=== PATIENT | female | born 1970 | race Caucasian/White ===

== ENCOUNTER → 2019-08-03 08:34 | Outpatient (BNVA) | payer MEDICAID, SELFPAY | PROVIDERS: Family Provider Nurse Practitioner Family; PCP Family Medicine; Visit Provider Counselor Mental Health | DX: F33.1 Major depressive disorder, recurrent, moderate (principal); G47.00 Insomnia, unspecified | CPT/HCPCS: 90834 ==

== ENCOUNTER → 2019-08-15 10:41 | Outpatient (BNVA) | payer MEDICAID, SELFPAY | PROVIDERS: Family Provider Nurse Practitioner Family; PCP Family Medicine; Visit Provider Counselor Mental Health | DX: F33.1 Major depressive disorder, recurrent, moderate (principal); G47.00 Insomnia, unspecified | CPT/HCPCS: 90834 ==

== ENCOUNTER → 2019-08-27 13:31 | Outpatient (BNVA) | payer MEDICAID, SELFPAY | PROVIDERS: Family Provider Nurse Practitioner Family; PCP Family Medicine; Visit Provider Nurse Practitioner Psychiatric/Mental Health | DX: F33.2 Major depressive disorder, recurrent severe without psychotic features (principal); F41.1 Generalized anxiety disorder; F60.9 Personality disorder, unspecified | CPT/HCPCS: 99214 ==

== ENCOUNTER → 2019-08-31 08:36 | Outpatient (BNVA) | payer MEDICAID, SELFPAY | PROVIDERS: Family Provider Nurse Practitioner Family; PCP Family Medicine; Visit Provider Counselor Mental Health | DX: F33.1 Major depressive disorder, recurrent, moderate (principal); G47.00 Insomnia, unspecified | CPT/HCPCS: 90832 ==

== ENCOUNTER → 2019-09-10 16:13 | Outpatient (BNVA) | payer MEDICAID, SELFPAY | PROVIDERS: Family Provider Nurse Practitioner Family; PCP Family Medicine; Visit Provider Nurse Practitioner Family | DX: E66.9 Obesity, unspecified (principal); R53.83 Other fatigue; Z79.899 Other long term (current) drug therapy; E78.2 Mixed hyperlipidemia; E55.9 Vitamin D deficiency, unspecified | CPT/HCPCS: 80053; 80061; 81001; 82306; 83036; 84443; 85025 ==

== ENCOUNTER 2020-01-09 07:50 | Day surgery (SDC) | payer MEDICAID, SELFPAY ==
[2020-01-07 13:45] VITALS: BMI 34.9
[2020-01-09 07:59] VITALS: BP 112/75; PULSE 69; RESP 18; TEMP 36.1; O2SAT 98
[2020-01-09] MEDS: sodium chloride 0.9% 1,000 ML 30 ML IV (08:12)
--- NOTE | 2020-01-09 08:18 | P.ANESASSM_ITS ---
Pre-Anesthetic Assessment Pre-Anesthetic Assessment: Height/Weight: Height 1.65 m Weight 95.254 kg Temp Pulse Resp BP Pulse Ox 97 F L 69 18 112/75 98 01/09/20 07:59 01/09/20 07:59 01/09/20 07:59 01/09/20 07:59 01/09/20 07:59 Preop Diagnosis: Screening colonoscopy Proposed Procedure: Operation Date: 01/09/20 09:00 Proposed Procedures p Colonoscopy 88942 Z12.11(Not Applicable) - James Becker MD Last intake: Intake Last Liquid Date 01/08/20 Last Liquid Time 23:00 Last Solid Date 01/06/20 Last Solid Time 23:59 Social: Social History: Tobacco (quit) and No alcohol Exam: Pre-Anes Outpt Exam: alert, oriented x 3, clear to auscultation bilaterally and regular rate & rhythm Airway: Submandibular: WNL Cervical ROM: WNL Dentition: Full ( edentureless) History/ROS: No significant history except as noted Pulmonary: Pulmonary: None reported CV/HEM: CV/HEM: None reported : : None reported Hepatic: Hepatic: None reported GI: GI: None reported Metabolic: Metabolic: Morbid obesity Musc/skel: Musc/skel: Lower Back Pain Neuropsych: Neuropsych: Anxiety and Depression Anesthetic Plan: ASA status: 3 Anesthesia: Anesthesia Evaluation and MAC Risk of > 500 ml blood loss (7ml/kg in children): No Meds/Allergies Current Medications: Current Medications Generic Name Dose Route Start Last Admin Trade Name Freq PRN Reason Stop Dose Admin Sodium Chloride 1,000 mls @ 30 ml s/hr 01/09/20 08:00 01/09/20 08:12 Sodium Chloride 0.9% IV 30 mls/hr .Q24H DAQUAN Administration PFSH Anesthesia PFSH: Medical History Brain aneurysm Depression Insomnia, persistent Intervertebral disc disorders with radiculopathy, lumbosacral region Obesity Surgical History H/O: hysterectomy History of colonoscopy History of esophagogastroduodenoscopy (EGD) S/P appendectomy S/P cataract surgery S/P craniotomy S/P D&C (status post dilation and curettage) S/P tonsillectomy and adenoidectomy Family History Mother Bleeding disorder Anesthesia complication Other CAD (coronary artery disease) Cancer Diabetes Hyperlipidemia Hypertension Stroke Suicide Social History Smoking and tobacco status: former smoker Alcohol intake: never Data Anesthesia Cardiac Studies: No Data to Display
--- NOTE | 2020-01-09 09:19 | W.PM.OPSUD ---
Surgery/Procedure H&P Update DATE OF PROCEDURE: January 09, 2020 DATE H&P PERFORMED: 12/20/19 H&P UPDATE INFORMATION: I have reviewed H&P completed within last 30 days, I have examined patient prior to procedure and No changes to prior documentation PREOP DIAGNOSIS: Screening colonoscopy PRIMARY INDICATION FOR PROCEDURE: The same PLANNED PROCEDURE: Operation Date: 01/09/20 09:00 Proposed Procedures p Colonoscopy 59531 Z12.11(Not Applicable) - James eBcker MD
[2020-01-09 09:34] VITALS: BP 104/66; PULSE 69; RESP 16; TEMP 36.8; O2SAT 98
[2020-01-09 09:45] VITALS: BP 103/70; PULSE 70; RESP 18; O2SAT 97
== END 2020-01-09 09:55 | disposition home or self-care (01) ==
PROVIDERS: Internal Medicine; PCP Family Medicine; Visit Provider Surgery
PROC: 0DJD8ZZ Inspection of Lower Intestinal Tract, Via Natural or Artificial Opening Endoscopic (ICD-10-PCS; CPT 45330; principal; 2020-01-09 09:00)
DX: Z12.11 Encounter for screening for malignant neoplasm of colon (principal); Z53.8 Procedure and treatment not carried out for other reasons; Z87.891 Personal history of nicotine dependence; E66.01 Morbid (severe) obesity due to excess calories; Z68.34 Body mass index [BMI] 34.0-34.9, adult; E66.9 Obesity, unspecified; Z82.49 Family history of ischemic heart disease and other diseases of the circulatory system; Z83.3 Family history of diabetes mellitus; Z82.3 Family history of stroke
CPT/HCPCS: 12345; 45330; J7030

== ENCOUNTER → 2020-01-11 10:56 | Outpatient (BNVA) | payer MEDICAID, SELFPAY | PROVIDERS: PCP Family Medicine; Visit Provider Family Medicine | DX: E78.5 Hyperlipidemia, unspecified (principal) | CPT/HCPCS: 80053; 80061 ==

== ENCOUNTER 2020-01-26 16:56 | Emergency (ER) | payer MEDICAID, SELFPAY ==
[2020-01-26 17:00] VITALS: BMI 32.5
[2020-01-26 17:03] VITALS: BP 121/85; PULSE 91; RESP 18; TEMP 36.7; O2SAT 96
--- NOTE | 2020-01-26 17:27 | ED_ITS ---
HPI - Nausea/Vomiting/Diarrhea General: Chief complaint: Nausea/Vomiting/Diarrhea Stated complaint: VOMITING Time Seen by Provider: 01/26/20 17:27 Source: patient Mode of arrival: ambulatory Limitations: no limitations History of Present Illness: HPI Narrative: 49-year-old female comes in today for complaints of nausea and vomiting with emesis 3 times today. Patient started yesterday she was doing well today she woke up feeling kind bad with a headache. Patient then started having episodes of nausea and vomiting. Patient denies any fever or other symptoms. Patient does have a history of migraine headaches. Patient appears well. Patient appears in mild pain. Associated nausea: Yes Associated symtoms: Reports headache(s) and nausea Review of Systems General: Reports: 10 or more systems reviewed and unremarkable except in HPI and below GI: Reports: nausea and vomiting Neuro: Reports: headache(s) PFSH ED PFSH: Medical History (Updated 01/26/20 @ 18:38 by DIXIE Rodriguez) Brain aneurysm Depression Insomnia, persistent Intervertebral disc disorders with radiculopathy, lumbosacral region Obesity Surgical History H/O: hysterectomy History of colonoscopy History of esophagogastroduodenoscopy (EGD) S/P appendectomy S/P cataract surgery S/P craniotomy S/P D&C (status post dilation and curettage) S/P tonsillectomy and adenoidectomy Family History Mother Bleeding disorder Anesthesia complication Other CAD (coronary artery disease) Cancer Diabetes Hyperlipidemia Hypertension Stroke Suicide Social History Smoking and tobacco status: former smoker Alcohol intake: never Physical Exam Const: COMMON NORMALS: no acute distress and patient oriented x3 GENERAL APPEARANCE: cooperative HENMT: COMMON NORMALS: normocephalic and Normal external nose present HEAD & SCALP: normal to inspection and normocephalic NOSE: Normal external nose present THROAT: posterior oropharynx normal Eye: GENERAL EYE: appearance normal, both eyes and all related structures Neck/C-Spine: COMMON NORMALS: full ROM Lymph: LYMPHATIC: no lymphadenopathy noted Chest: COMMONS NORMALS: normal inspection of the chest Resp: COMMON NORMALS: normal respiratory effort EFFORT & INSPECTION: Yes able to speak in complete sentences Cardio: COMMON NORMALS: regular rate and regular rhythm RATE: regular rate RHYTHM: regular rhythm GI: COMMON NORMALS: Soft to palpation and non-tender PALPATION: Yes Soft to palpation : COMMON NORMALS: Yes no CVA tenderness BLADDER/KIDNEY EXAM: Yes no CVA tenderness Back/Pelvis: COMMON NORMALS: no CVA tenderness and thoracic and lumbar spine normal to inspection Extremity: COMMON NORMALS: normal to inspection Neuro: COMMON NORMALS: patient oriented x3 and moves all extremities Psych: COMMON NORMALS: mental status grossly normal and cooperative Skin: COMMON NORMALS: no rashes or lesions noted GENERAL SKIN EXAM: no rashes or lesions noted Course Vital Signs: Vital signs: Vital Signs Temperature 98.0 F 01/26/20 17:03 Pulse Rate 91 01/26/20 17:03 Respiratory Rate 18 01/26/20 17:03 Blood Pressure 121/85 01/26/20 17:03 Pulse Oximetry 96 01/26/20 17:03 MDM - Nausea/Vomiting/Diarrhea MDM Narrative: Medical decision making narrative: Patient comes in today with complaints of headache and nausea and vomiting. Patient reports that incident started today. Patient threw up 2-3 times. With headache. Patient does have a history of migraines. On exam pupils are equal and reactive. Patient responds well to questioning. Abdomen is soft and nontender. Differential diagnosis includes but not limited to migraine, acute headache, gastroenteritis. CBC and CMP were normal. Urinalysis was clear. Patient was given Reglan and Benadryl with good results for headache control and symptom control. We will continue patient on Zofran as needed for nausea and vomiting. Encourage plenty of fluids and follow-up with primary care as needed or return to the ER for new concerns. Patient reports understanding. Lab Data: Labs: Lab Results 01/26/20 01/26/20 01/26/20 Range/Units 17:40 17:40 17:56 WBC 7.2 (4.0-10.0) 10^3/ uL RBC 4.37 (4.1-5.3) 10^6/u L Hgb 12.9 (11.5-15.3) g/dL Hct 39.4 (37.0-47.0) % MCV 90.2 (81-99) fL MCH 29.5 (28.0-34.0) pg MCHC 32.7 (30.0-36.0) g/dL RDW 12.9 (12.1-15.1) % Plt Count 210 (130-400) 10^3/c mm MPV 10.0 (7.4-10.4) fL Neut % (Auto) 61.0 % Lymph % (Auto) 30.2 % Brooks % (Auto) 7.1 % Eos % (Auto) 1.0 % Baso % (Auto) 0.4 % Neut # (Auto) 4.37 (1.8-7.7) 10^3/u L Lymph # (Auto) 2.2 (0.8-4.8) 10^3/u L Brooks # (Auto) 0.5 (0.2-0.9) 10^3/u L Eos # (Auto) 0.1 (0.0-0.8) 10^3/u L Baso # (Auto) 0.0 (0.0-0.1) 10^3/u L Nucleated RBC % (a uto) 0 % Nucleated RBCs # 0.0 /100WBC Sodium 140 (136-145) mmol/L Potassium 4.0 (3.5-5.1) mmol/L Chloride 106 (98-107) mmol/L Carbon Dioxide 24 (22-29) mmol/L Anion Gap 14.0 (5-19) BUN 13 (6-20) mg/dL Creatinine 0.7 (0.5-0.9) mg/dL GFR Calculation 89.3 L (90-130) mL/min Glucose 115 (65-115) mg/dL Calculated Osmolal ity 287 (285-295) mOsm/k g Calcium 9.9 (8.5-10.5) mg/dL Total Bilirubin 0.3 (0.15-1.2) mg/dL AST 18 (0-32) U/L ALT 24 (0-33) U/L Alkaline Phosphata se 75 (35-105) IU/L Total Protein 7.3 (6.6-8.7) g/dL Albumin 4.4 (3.5-5.2) g/dL Globulin 2.9 (1.3-4.6) g/dL Lipase 26 (13-60) U/L Urine Color Yellow (Yellow) Urine Appearance Clear (CLEAR) Urine pH 5 (5-7) Ur Specific Gravit y 1.025 (1.005-1.030) Urine Protein Neg (Negative) Urine Glucose (UA) Norm (Normal) Urine Ketones Negative (Negative) Urine Blood Neg (Negative) Urine Nitrate Negative (Negative) Urine Bilirubin Neg (NEGATIVE) Urine Urobilinogen Norm (Negative) mg/dL Ur Leukocyte Viridiana ase Negative (Negative) Discharge Plan Discharge Patient Disposition: Home Clinical Impression: Migraine Qualifiers: Migraine type: unspecified Status migrainosus presence: without status migrainosus Intractability: not intractable Qualified Code(s): G43.909 - Migraine, unspecified, not intractable, without status migrainosus Condition: Stable Prescriptions: New ondansetron 4 mg tablet,disintegrating 4 mg PO Q8H PRN (Reason: nausea and vomiting) Qty: 7 RF: 0 No Action latanoprost 0.005 % drops 1 drop ophthalmic (eye) QDAY RF: 0 Refresh Liquigel 1 % drops, liquid gel 1 drop ophthalmic (eye) BID RF: 0 sertraline 50 mg tablet 50 mg PO DAILY Qty: 30 RF: 1 hydroxyzine pamoate [Vistaril] 50 mg capsule 50 mg PO BID PRN (Reason: anxiety) Qty: 60 RF: 0 lactulose 10 gram/15 mL solution 10 gm PO BID 7 Days Qty: 210 RF: 0 Discharge Orders: Discharge Order (Routine); Ordered 01/26/20 Ordered By: Jaron Vivas Referrals: Ellen Ramirez DO [Primary Care Provider] - Discharge Diet: Usual diet Discharge Activity: Increase activity as tolerated Patient Instructions: Acute Headache (ED) Activity Restrictions/Additional Instructions: Drink plenty of fluids. Use Zofran as needed for nausea. Continue with routine care. Follow-up with primary care. Return to the emergency department for new concerns. Coding Level of Care Code ED Small Arms Repairer for Yahir Fwdontae Exam Comprehensive
[2020-01-26] MEDS: diphenhydrAMINE 50 mg/mL SDV 1mL 25 MG IVP (17:50)
[2020-01-26] MEDS: metoclopramide 5 mg/mL SDV 2 mL 10 MG IVP (17:50)
[2020-01-26] MEDS: sodium chloride 0.9% 500 ML 999 ML IV (17:51)
[2020-01-26 17:59] LABS: Add Urine Microscopic? NO
[2020-01-26 18:00] LABS: Basophils % 0.4 %; Eosinophils # 0.1 10^3/uL (0.0-0.8); Hematocrit 39.4 % (37.0-47.0); Hemoglobin 12.9 g/dL (11.5-15.3); Lymphocytes # 2.2 10^3/uL (0.8-4.8); Lymphocytes % 30.2 %; Mean Corpuscular HGB Conc 32.7 g/dL (30.0-36.0); Mean Corpuscular Hemoglobin 29.5 pg (28.0-34.0); Mean Corpuscular Volume 90.2 fL (81-99); Monocytes # 0.5 10^3/uL (0.2-0.9); Monocytes % 7.1 %; Neutrophils # 4.37 10^3/uL (1.8-7.7); Nucleated Red Blood Cells % 0 %; Platelet Count 210 10^3/cmm (130-400); Red Blood Count 4.37 10^6/uL (4.1-5.3); Red Cell Distribution Width 12.9 % (12.1-15.1); White Blood Count 7.2 10^3/uL (4.0-10.0)
[2020-01-26 18:02] LABS: Bilirubin Urine Neg (NEGATIVE); Blood Urine Neg (Negative); Glucose Urine UA Norm (Normal); Ketones Urine Negative (Negative); Leukocyte Esterase Urine Negative (Negative); Nitrate Urine Negative (Negative); Protein Urine Neg (Negative); Specific Gravity, Urine 1.025 (1.005-1.030); Urine Appearance Clear (CLEAR); Urine Color Yellow (Yellow); Urobilinogen Urine Norm (Negative); pH Urine 5 (5-7)
[2020-01-26 18:19] LABS: Alanine Aminotransferase 24 U/L (0-33); Albumin Level 4.4 g/dL (3.5-5.2); Alkaline Phosphatase 75 IU/L (35-105); Aspartate Amino Transferase 18 U/L (0-32); Blood Urea Nitrogen 13 mg/dL (6-20); Calcium 9.9 mg/dL (8.5-10.5); Carbon Dioxide 24 mmol/L (22-29); Chloride 106 mmol/L (98-107); Globulin 2.9 g/dL (1.3-4.6); Glomerular Filtration Rate 89.3 mL/min (90-130); Glucose 115 mg/dL (65-115); Lipase 26 U/L (13-60); Osmolality Calculated 287 mOsm/kg (285-295); Sodium 140 mmol/L (136-145); Total Bilirubin 0.3 mg/dL (0.15-1.2); Total Protein 7.3 g/dL (6.6-8.7)
[2020-01-26 18:51] VITALS: RESP 18
== END 2020-01-26 18:56 | disposition home or self-care (01) ==
PROVIDERS: Emergency Provider Nurse Practitioner Family; PCP Family Medicine
DX: G43.909 Migraine, unspecified, not intractable, without status migrainosus (principal); Z87.891 Personal history of nicotine dependence
CPT/HCPCS: 12345; 80053; 81003; 83690; 85025; 96360; 96374; 96375; 99282; 99283; J1200; J2765; J7040

== ENCOUNTER → 2020-03-21 08:27 | Outpatient (BNVA) | payer MEDICAID, SELFPAY | PROVIDERS: PCP Family Medicine; Visit Provider Surgery | DX: Z20.828 Contact with and (suspected) exposure to other viral communicable diseases (principal) | CPT/HCPCS: 87635 ==

== ENCOUNTER 2020-03-26 08:16 | Day surgery (SDC) | payer MEDICAID, SELFPAY ==
[2020-03-24 13:24] VITALS: BMI 31.6
[2020-03-26 08:39] VITALS: BP 136/76; PULSE 78; RESP 18; TEMP 36.1; O2SAT 99; BMI 31.6
[2020-03-26] MEDS: sodium chloride 0.9% 1,000 ML 30 ML IV (09:02)
--- NOTE | 2020-03-26 09:19 | ANES.PREANE2 ---
Pre-Anesthetic Assessment Pre-Anesthetic Assessment: Height/Weight: Height 1.65 m Weight 86.183 kg Temp Pulse Resp BP Pulse Ox 97 F L 78 18 136/76 99 03/26/20 08:39 03/26/20 08:39 03/26/20 08:39 03/26/20 08:39 03/26/20 08:39 Preop Diagnosis: Abdominal pain Proposed Procedure: Operation Date: 03/26/20 09:45 Proposed Procedures p EGD/colon 24420 26446 R10.9 K59.00(Not Applicable) - James Becker MD s Colonoscopy(Not Applicable) - James Becker MD Familial anesthetic complications: none Was Beta Leesa taken within 24 hours: N/A Last intake: NPO > 8 hrs Social: Social History: No alcohol and No tobacco Exam: Pre-Anes Outpt Exam: alert, oriented x 3, clear to auscultation bilaterally and regular rate & rhythm Airway: MP: 3 Dentition: Other (edentulous) Metabolic: Metabolic: Morbid obesity Neuropsych: Comments: hx brain aneurysm s/p craniotomy in 1997 - no residual problems/symptoms Anesthetic Plan: ASA status: 2 Anesthesia: MAC Risk of > 500 ml blood loss (7ml/kg in children): No Meds/Allergies Current Medications: Current Medications Generic Name Dose Route Start Last Admin Trade Name Freq PRN Reason Stop Dose Admin Sodium Chloride 1,000 mls @ 30 ml s/hr 03/26/20 08:45 03/26/20 09:02 Sodium Chloride 0.9% IV 03/27/20 08:44 30 mls/hr .Q24H DAQUAN Administration PFSH Anesthesia PFSH: Medical History Brain aneurysm Depression Insomnia, persistent Intervertebral disc disorders with radiculopathy, lumbosacral region Obesity Surgical History H/O: hysterectomy History of colonoscopy History of esophagogastroduodenoscopy (EGD) S/P appendectomy S/P cataract surgery S/P craniotomy S/P D&C (status post dilation and curettage) S/P tonsillectomy and adenoidectomy Family History Mother Bleeding disorder Anesthesia complication Other CAD (coronary artery disease) Cancer Diabetes Hyperlipidemia Hypertension Stroke Suicide Social History Smoking and tobacco status: former smoker Alcohol intake: never Data Anesthesia Cardiac Studies: No Data to Display
--- NOTE | 2020-03-26 10:14 | W.PM.OPSFHP ---
Same Day Surgery H&P Indication for Procedure/HPI DATE OF PROCEDURE: March 26, 2020 CHIEF COMPLAINT/INDICATIONFOR SURGICAL PROCEDURE: Abdominal pain PREOP DIAGNOSIS: Abdominal pain PLANNED PROCEDRUE: Operation Date: 03/26/20 09:45 Proposed Procedures p EGD/colon 33454 82588 R10.9 K59.00(Not Applicable) - James Becker MD s Colonoscopy(Not Applicable) - James Becker MD Patient comes today as a follow-up with regard to her weight loss management as well as status post attempt for screening colonoscopy but unfortunately the colon prep was suboptimal, patient reports vague abdominal pain that has been going on for quite some time and she denies at this point history of GERD or nausea or vomiting, yet she complains of a dull aching abdominal pain diffuse in nature and she is thinking more constipation related. Patient reports history of ovarian and cervical cancer in the past She has been adherent and compliant with a supervised medical weight loss per Dr. Ramirez and she reports that she lost about 9 pounds with a current weight of 201 pounds and she has been adherent to low calorie diet Interim history 03/26/2020 Patient comes today for planned diagnostic EGD and screening colonoscopy. ROS All systems have been reviewed negative except as per the above or per problem list. Medications/Allergies* Home Medications Medication Instructions Recorded Confirmed Type carboxymethylcellulose sodium 1 % 1 drop OPHTHALMIC (EYE) BID 07/20/19 03/24/20 History eye liquid gel drops latanoprost 0.005 % eye drops 1 drop OPHTHALMIC (EYE) QDAY 07/20/19 03/24/20 History Allergies/Adverse Reactions Allergy/AdvReac Type Severity Reaction Status Date / Time adhesive tape Allergy knots Verified 03/26/20 10:18 gabapentin [From Neurontin] Allergy loses Verified 03/26/20 10:18 feeling in legs Penicillins Allergy generalized Verified 03/26/20 10:18 edema Current Medications: Generic Name Dose Route Start Last Admin Trade Name Freq PRN Reason Stop Dose Admin Sodium Chloride 1,000 mls @ 30 mls/hr 03/26/20 08:45 03/26/20 09:02 Sodium Chloride 0.9% IV 03/27/20 08:44 30 mls/hr .Q24H DAQUAN Administration Pertinent History/Comorbid Conditions* Medical History (Updated 02/03/20 @ 00:00 by ) Brain aneurysm Depression Insomnia, persistent Intervertebral disc disorders with radiculopathy, lumbosacral region Obesity Surgical History (Updated 11/24/19 @ 08:47 by James Becker MD) H/O: hysterectomy History of colonoscopy History of esophagogastroduodenoscopy (EGD) S/P appendectomy S/P cataract surgery S/P craniotomy S/P D&C (status post dilation and curettage) S/P tonsillectomy and adenoidectomy Family History (Updated 11/22/19 @ 13:41 by JORDAN Mar) Diabetes CAD (coronary artery disease) Hyperlipidemia Suicide Anesthesia complication Mother Bleeding disorder Mother Cancer Hypertension Stroke Social History Smoking and tobacco status: former smoker Alcohol intake: never Pertinent Exam Findings alert, oriented x 3, clear to auscultation bilaterally, regular rate & rhythm and procedure specific exam findings (Abdominal examination nontender nondistended soft, obese) Recommendations Surgery/Procedure today (Diagnostic EGD and colonoscopy with possible biopsy) Coding Level of Care Code Acute Nanotechnology Engineering Technician for Yahir Eng
--- NOTE | 2020-03-26 10:51 | ANE.PACU2 ---
Inpatient post-anesthesia follow up: Airway intact: Yes Vital signs: Temperature 97 F Pulse Rate 78 Respiratory Rate 18 Blood Pressure 136/76 Pulse Oximetry 99 Oxygen Delivery Me thod Room Air Oxygen Flow Rate Fraction of Inspir ed Oxygen Hydration adequate: Yes Nausea and vomiting: No Pain level: 1 Mental status: Baseline
[2020-03-26 10:54] VITALS: BP 113/76; PULSE 83; RESP 18; TEMP 36.1; O2SAT 98
[2020-03-26 11:10] VITALS: BP 104/62; PULSE 71; RESP 18; O2SAT 98
== END 2020-03-26 11:15 | disposition home or self-care (01) ==
PROVIDERS: PCP Family Medicine; Visit Provider Surgery
PROC: 0DJ08ZZ Inspection of Upper Intestinal Tract, Via Natural or Artificial Opening Endoscopic (ICD-10-PCS; CPT 43235; principal; 2020-03-26 09:45)
PROC: 0DJD8ZZ Inspection of Lower Intestinal Tract, Via Natural or Artificial Opening Endoscopic (ICD-10-PCS; CPT 45378; 2020-03-26 09:45)
DX: R10.9 Unspecified abdominal pain (principal); K21.9 Gastro-esophageal reflux disease without esophagitis; E66.01 Morbid (severe) obesity due to excess calories; Z68.31 Body mass index [BMI] 31.0-31.9, adult; Z87.891 Personal history of nicotine dependence
CPT/HCPCS: 12345; 43235; 45330; J7030

== ENCOUNTER 2020-04-22 08:50 | Outpatient (CLI) | payer MEDICAID, SELFPAY ==
--- NOTE | 2020-04-22 09:15 | FL_ITS ---
WS: [id number] BARIUM ENEMA SINGLE CONTRAST. HISTORY: Z12.11 Encounter for screening for malignant neoplasm COMPARISON: None available. FLUOROSCOPY TIME: 2.7 minutes. Rectal tip was inserted without difficulty. Single contrast barium enema examination is performed und er gravity. There is good distention of the colon with the barium contrast. There is a tortuous colon with overlapping loops. There is still a moderate amount of retained fecal material. No persistent s trictures or mucosal lesions. The appendix has been removed. No reflux the contrast into the distal s mall bowel. FL/FL barium enema [id number] IMPRESSION: 1. Tortuous overlapping loops of colon. 2. No evidence for stricture or diverticulosis. 3. Prior appendectomy.
== END 2020-04-22 08:51 | disposition home or self-care (01) ==
LOC: RADWPI 08:53
PROVIDERS: Family Provider Family Medicine; PCP Family Medicine; Visit Provider Surgery
DX: Z12.11 Encounter for screening for malignant neoplasm of colon (principal)
CPT/HCPCS: 74270

== ENCOUNTER 2020-05-22 05:17 | Emergency (ER) | payer MEDICAID, SELFPAY ==
[2020-05-22 05:32] VITALS: BP 140/87; PULSE 88; RESP 17; TEMP 36.4; O2SAT 97; BMI 31.1
--- NOTE | 2020-05-22 05:48 | CTR_ITS ---
PROCEDURE INFORMATION: Exam: CT Head Without Contrast Exam date and time: 05/22/2020 6:04 AM Age: 49 years old Clinical indication: Pain; Headache; Migraine; Prior surgery; Surgery type: Aneurysm coil; Patient HX: Migraine with n/v. History of aneurysm with coil. TECHNIQUE: Imaging protocol: Computed tomography of the head without contrast. Radiation optimization: All CT scans at this facility use at least one of these dose optimization techniques: automated exposure control; mA and/or kV adjustment per patient size (includes targeted exams where dose is matched to clinical indication); or iterative reconstruction. COMPARISON: CT head wo con* [id number] 12/14/2017 10:03 PM RADIATION DOSE METRICS: Total DLP (mGy-cm): 786.79 FINDINGS: Brain: There are no areas of abnormally increased or decreased brain parenchymal attenuation. No abnormal intra-axial or extra-axial fluid collections are identified. There is no midline shift. No intracranial hemorrhage identified. Aneurysm clip in the left suprasellar region as previously. Ventricles: The ventricular system is within normal limits for size and configuration. Bones/joints: Postsurgical changes of the left parietal bone as previously. Sinuses: Visualized sinuses are unremarkable. No fluid levels. Mastoid air cells: Visualized mastoid air cells are well aerated. Soft tissues: Unremarkable. CT/CT head wo con* [id number] IMPRESSION: 1. No acute intracranial process identified. Radiation Dose CTDIVOL = (mGy): DLP = 786.79 (mGy-cm)
--- NOTE | 2020-05-22 05:55 | W.ED.HA ---
HPI - Headache General: Chief Complaint: Headache Stated Complaint: migraine/vomiting Time Seen by Provider: 05/22/20 05:43 Source: patient Mode of arrival: ambulatory Limitations: no limitations History of Present Illness: HPI Narrative: Kesha is a very nice 49-year-old female who comes in complaining of migraine headache. She states her headache began last night it was gradual in onset and she tried multiple doses of Tylenol to help with the pain. She said it kept the pain off for a while but then late last night the headache got worse. She states she is had several episodes of nausea and vomiting. Patient denies any fever, chills, visual problems other than photophobia. Patient states she has had numerous headaches like this in the past. Patient denies any change in headache pattern. She does relate that in the past she had an aneurysm rupture but this does not feel like that. She had a craniotomy and plate placed for this. Patient otherwise denies any complaints or concerns. She states her goal is to have her headache relief. She admits to having to come to the ER in the past for headache relief. Associated symptoms: Reports nausea and vomiting; Deny chest pain, confusion, diaphoresis, fever(s), lightheadedness, malaise, pre-syncope, rash or syncope Review of Systems Const: Denies: fever(s), chills, body aches, fatigue, malaise or diaphoresis Eyes: Denies: change in vision, blurry vision, photophobia, eye discomfort, eye discharge, eye redness or yellow eyes ENMT: Denies: throat pain, odynophagia, hoarseness, swelling of lips/tongue, ear or mastoid pain, ear discharge, change in hearing or nasal discharge Card: Denies: chest pain, palpitations, irregular heart rhythm, edema, lightheadedness, syncope, pre-syncope, dyspnea on exertion or orthopnea Resp: Denies: dyspnea, productive cough, non-productive cough, wheezing, hemoptysis or chest congestion GI: Reports: nausea and vomiting; Denies: abdominal pain, hematemesis, coffee ground emesis, heartburn, diarrhea, constipation, GI cramping, hematochezia or melena : Denies: flank pain, dysuria, urinary frequency, urinary urgency or hematuria Musc: Denies: neck pain, back pain, extremity pain, extremity swelling, joint pain, joint swelling, joint redness, joint warmth or joint stiffness Skin/Breast: Denies: rash, pruritus, erythema, skin pain or skin tenderness Neuro: Reports: headache(s); Denies: numbness in extremities, weakness in extremities, sensory changes, lack of coordination, difficulty walking, dizziness, vertigo, confusion, Slurred speech present or seizure-like activity Jered/Lymph: Denies: easy bruising, easy bleeding, petechiae, purpura or enlarged lymph nodes All/Imm: Denies: urticaria, throat swelling, tongue swelling, facial swelling or acute wheezing PFSH ED PFSH: Medical History (Updated 05/22/20 @ 07:04 by Betty Booker) Brain aneurysm Depression Insomnia, persistent Intervertebral disc disorders with radiculopathy, lumbosacral region Obesity Surgical History H/O: hysterectomy History of colonoscopy History of esophagogastroduodenoscopy (EGD) S/P appendectomy S/P cataract surgery S/P craniotomy S/P D&C (status post dilation and curettage) S/P tonsillectomy and adenoidectomy Family History Mother Bleeding disorder Anesthesia complication Other CAD (coronary artery disease) Cancer Diabetes Hyperlipidemia Hypertension Stroke Suicide Social History Smoking and tobacco status: former smoker Alcohol intake: never Physical Exam Const: COMMON NORMALS: no acute distress, patient oriented x3, no limitations and alert GENERAL APPEARANCE: cooperative HENMT: COMMON NORMALS: normocephalic, atraumatic, external ears normal, EAC's normal and Normal external nose present HEAD & SCALP: normal to inspection, normocephalic and atraumatic FACE & SINUS: normal facial exam and face symmetric NOSE: Normal external nose present and Normal nares present EXTERNAL EAR: Yes external ears normal EXTERNAL AUDITORY CANAL: EAC's normal MOUTH: Normal oral and palatal mucosa present, lip normal and tongue normal Eye: COMMON NORMALS: Equal, round and reactive pupils present and conjunctivae normal GENERAL EYE: appearance normal, both eyes and all related structures ALIGNMENT: Yes alignment normal PERIORBITAL: periorbital findings normal EYELID: eyelids normal CONJUNCTIVA: Yes conjunctivae normal SCLERA: sclerae normal PUPIL: Yes Equal, round and reactive pupils present Neck/C-Spine: COMMON NORMALS: full ROM, no lymphadenopathy, supple, no meningeal signs and no JVD GENERAL: Yes normal visual inspection and Yes trachea midline Chest: COMMONS NORMALS: normal inspection of the chest and normal palpation of entire chest wall Resp: COMMON NORMALS: normal respiratory effort, No retractions, No use of accessory muscles and clear to auscultation bilaterally EFFORT & INSPECTION: Yes able to speak in complete sentences and Yes symmetric chest movement AUSCULTATION: clear to auscultation bilaterally, no crackles, no rales, no rhonchi and no wheezes Cardio: COMMON NORMALS: no JVD, regular rate, regular rhythm, S1 normal heart sound present and S2 normal heart sound present RATE: regular rate RHYTHM: regular rhythm HEART SOUNDS: S1 normal heart sound present, S2 normal heart sound present, no click, no gallops, no murmurs and no rubs GI: COMMON NORMALS: Soft to palpation and No hepatosplenomegaly present PALPATION: Yes Soft to palpation, No Tenderness to palpation present (GI), No Guarding due to palpation present (GI), No Rigid due to palpation, Yes No hepatosplenomegaly present, No Hernia present, No Palpable mass present and No Pulsatile mass present : COMMON NORMALS: Yes no CVA tenderness BLADDER/KIDNEY EXAM: Yes no CVA tenderness EXTERNAL FEMALE EXAM: No Hernia present Back/Pelvis: COMMON NORMALS: no CVA tenderness, thoracic and lumbar spine normal to inspection, no thoracic nor lumbar tenderness and thoraco-lumbar ROM normal Extremity: COMMON NORMALS: normal to inspection, full ROM, capillary refill normal, no joint enlargement, no clubbing, cyanosis or edema and no calf tenderness Neuro: COMMON NORMALS: patient oriented x3, CN's II-XII intact bilaterally, moves all extremities, no focal motor deficits and no sensory deficits noted SENSORIUM/ORIENTATION: Yes alert MENINGEAL SIGNS: Yes no meningeal signs SPEECH: speech normal Psych: COMMON NORMALS: mental status grossly normal, Normal thought process present, cooperative, normal affect, speech normal and activity/motor behavior normal SPEECH: Yes normal speech THOUGHT PROCESS: Normal thought process present Skin: COMMON NORMALS: no rashes or lesions noted, turgor normal, no jaundice, no petechiae and no mottling GENERAL SKIN EXAM: no rashes or lesions noted and turgor normal Course Vital Signs: Vital signs: Vital Signs Temperature 97.5 F L 05/22/20 05:32 Pulse Rate 72 05/22/20 06:50 Respiratory Rate 17 05/22/20 05:32 Blood Pressure 112/56 05/22/20 06:50 Pulse Oximetry 94 05/22/20 06:50 MDM - Headache MDM Narrative: Medical decision making narrative: 0658 -patient states she is feeling much better and her headache is almost completely gone. Her head CT to my interpretation appears stable without any evidence of acute hemorrhage or focal abnormality. I do not suspect subarachnoid hemorrhage, stroke, pseudotumor cerebri or meningitis at this time. Patient's history and exam do not suggest these diagnoses. Patient states this feels like her typical migraine and her migraine is almost completely resolved. I will give her a dose of Depakote to resolve this completely. The patient agrees that if her head CT is officially read as normal and she feels as good as she does now she would like to be discharged. Patient understands to return if her headache changes or she develops any new symptoms but at this time she is feeling much better and would like to be discharged home so she can rest. Imaging Data^: CT Head: Radiologist's impression: [address] [address] [address] Scan Report Signed Patient: Kesha Torre #: [id number] : 1970Acct#:[id number] Age/Sex: 49 / FADM Date: 05/22/20 [facility]: Attending Dr: Ordering Provider/Ordering MD: Betty Booker DO Date of Service: 05/22/20 Procedure(s): CT head wo con* [id number] Accession Number(s): [id number] Report Number: [id number] PROCEDURE INFORMATION: Exam: CT Head Without Contrast Exam date and time: 05/22/2020 6:04 AM Age: 49 years old Clinical indication: Pain; Headache; Migraine; Prior surgery; Surgery type: Aneurysm coil; Patient HX: Migraine with n/v. History of aneurysm with coil. TECHNIQUE: Imaging protocol: Computed tomography of the head without contrast. Radiation optimization: All CT scans at this facility use at least one of these dose optimization techniques: automated exposure control; mA and/or kV adjustment per patient size (includes targeted exams where dose is matched to clinical indication); or iterative reconstruction. COMPARISON: CT head wo con* [id number] 12/14/2017 10:03 PM RADIATION DOSE METRICS: Total DLP (mGy-cm): 786.79 FINDINGS: Brain: There are no areas of abnormally increased or decreased brain parenchymal attenuation. No abnormal intra-axial or extra-axial fluid collections are identified. There is no midline shift. No intracranial hemorrhage identified. Aneurysm clip in the left suprasellar region as previously. Ventricles: The ventricular system is within normal limits for size and configuration. Bones/joints: Postsurgical changes of the left parietal bone as previously. Sinuses: Visualized sinuses are unremarkable. No fluid levels. Mastoid air cells: Visualized mastoid air cells are well aerated. Soft tissues: Unremarkable. CT/CT head wo con* [id number] IMPRESSION: 1. No acute intracranial process identified. Radiation Dose CTDIVOL = (mGy): DLP = 786.79 (mGy-cm) Dictated By:Calixto Lopez MD Signed By:Claixto Lopezigned Date/Time:05/22/20656 DD/ 5 Discharge Plan Discharge Patient Disposition: Home Clinical Impression: Migraine Condition: Stable Prescriptions: No Action latanoprost 0.005 % drops 1 drop ophthalmic (eye) QDAY RF: 0 Refresh Liquigel 1 % drops, liquid gel 1 drop ophthalmic (eye) BID RF: 0 phentermine 30 mg capsule 30 mg PO DAILY Qty: 30 RF: 0 sertraline 50 mg tablet 50 mg PO DAILY Qty: 30 RF: 1 hydroxyzine pamoate [Vistaril] 50 mg capsule 50 mg PO BID PRN (Reason: anxiety) Qty: 60 RF: 0 ondansetron 4 mg tablet,disintegrating 4 mg PO Q8H PRN (Reason: nausea and vomiting) Qty: 7 RF: 0 Protonix 40 mg tablet,delayed release (DR/EC) 40 mg PO DAILY 30 Days Qty: 30 RF: 2 Discharge Orders: Discharge Order (Routine); Ordered 05/22/20 Ordered By: Betty Booker Referrals: Lambert,Ellen, DO [Primary Care Provider] - 1-3 days Discharge Diet: Advance as tolerated Discharge Activity: Increase activity as tolerated Patient Instructions: Migraine Headache (ED) Activity Restrictions/Additional Instructions: Please return to the ER immediately for any of the signs or symptoms listed on your discharge instruction sheets, worsening/changing of your symptoms, you are not getting better as quickly as expected, or for ANY other cause or concerns. 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
[2020-05-22] MEDS: sodium chloride 0.9% 1,000 ML 999 ML IV (06:08)
[2020-05-22] MEDS: diphenhydrAMINE 50 mg/mL SDV 1mL IVP (06:09)
[2020-05-22] MEDS: metoclopramide 5 mg/mL SDV 2 mL 10 MG IV (06:09)
[2020-05-22 06:23] VITALS: BP 113/77; PULSE 88; O2SAT 97
[2020-05-22 06:50] VITALS: BP 112/56; PULSE 72; O2SAT 94
[2020-05-22] MEDS: valproic acid inj 500 MG in sodium chloride 0.9% 50 ML 55 MG IV (07:08)
[2020-05-22 08:14] VITALS: BP 114/75; PULSE 78; RESP 18; O2SAT 94
== END 2020-05-22 08:14 | disposition home or self-care (01) ==
PROVIDERS: Emergency Provider Emergency Medicine; PCP Family Medicine
DX: G43.909 Migraine, unspecified, not intractable, without status migrainosus (principal); Z87.891 Personal history of nicotine dependence
CPT/HCPCS: 12345; 70450; 96365; 96375; 99283; J0131; J1200; J2765; J7030

== ENCOUNTER 2020-05-25 23:43 | Emergency (ER) | payer MEDICAID, SELFPAY ==
[2020-05-25 23:47] VITALS: BP 133/71; PULSE 118; RESP 18; TEMP 37.2; O2SAT 98; BMI 31.1
--- NOTE | 2020-05-26 00:08 | ED_ITS ---
HPI - Allergic Reaction General: Chief complaint: Allergic Reaction Stated complaint: Broke out Time Seen by Provider: 05/25/20 23:52 History of Present Illness: HPI narrative: Patient is a 49-year-old female who comes to the ED with pruritic rash that started yesterday morning. She says it started first on her arms and now it spread onto her torso and is gone to her neck. She denies any throat swelling, trouble breathing, tongue or lip swelling. Denies any known contact to any outdoor plants. Denies any change in soaps, shampoos, lotions or detergents. She is taken some Benadryl and that has not helped rash. Associated symptoms: Deny abdominal pain, nausea or vomiting Review of Systems Const: Denies: fever(s), chills or fatigue Eyes: Denies: change in vision or eye discomfort ENMT: Denies: throat pain, odynophagia, nasal discharge or nasal congestion Card: Denies: chest pain, palpitations, edema, swelling of feet/ankles, dyspnea on exertion or orthopnea Resp: Denies: dyspnea, productive cough or non-productive cough GI: Denies: abdominal pain, nausea, vomiting, diarrhea, constipation or hematochezia : Denies: flank pain, dysuria or hematuria Musc: Denies: neck pain, back pain or extremity swelling Skin/Breast: Reports: rash (Pruritic rash on arms torso and neck.) and pruritus; Denies: new lesions Neuro: Denies: headache(s), numbness in extremities or weakness in extremities PFS ED PFSH: Medical History Brain aneurysm Depression Insomnia, persistent Intervertebral disc disorders with radiculopathy, lumbosacral region Obesity Surgical History H/O: hysterectomy History of colonoscopy History of esophagogastroduodenoscopy (EGD) S/P appendectomy S/P cataract surgery S/P craniotomy S/P D&C (status post dilation and curettage) S/P tonsillectomy and adenoidectomy Family History Mother Bleeding disorder Anesthesia complication Other CAD (coronary artery disease) Cancer Diabetes Hyperlipidemia Hypertension Stroke Suicide Social History Smoking and tobacco status: former smoker Alcohol intake: never Physical Exam Const: COMMON NORMALS: no acute distress, patient oriented x3 and alert GE NERAL APPEARANCE: cooperative and comfortable HENMT: COMMON NORMALS: normocephalic HEAD & SCALP: normocephalic MOUTH: Normal oral and palatal mucosa present THROAT: posterior oropharynx normal and uvula midline Neck/C-Spine: COMMON NORMALS: supple GENERAL: Yes normal visual inspection Resp: COMMON NORMALS: normal respiratory effort, No retractions, No use of accessory muscles and clear to auscultation bilaterally AUSCULTATION: clear to auscultation bilaterally Cardio: COMMON NORMALS: regular rate, regular rhythm, S1 normal heart sound present, S2 normal heart sound present, No gallops present (Cardio), No clicks present (Cardio), No murmurs present (Cardio) and Peripheral pulses 2+ throughout RATE: regular rate RHYTHM: regular rhythm HEART SOUNDS: S1 normal heart sound present and S2 normal heart sound present PERIPHERAL PULSES: Peripheral pulses 2+ throughout GI: COMMON NORMALS: Normal to inspection, nondistended, normoactive bowel sounds present, Soft to palpation, non-tender and no masses PALPATION: Yes Soft to palpation : COMMON NORMALS: Yes no CVA tenderness BLADDER/KIDNEY EXAM: Yes no CVA tenderness Back/Pelvis: COMMON NORMALS: no CVA tenderness Neuro: COMMON NORMALS: patient oriented x3 and moves all extremities SENSORIUM/ORIENTATION: Yes alert Skin: NARRATIVE SKIN EXAM: Patient has hive-like pruritic rash on both right and left forearms, right and left flank of torso and on neck. Exam findings are suggestive of urticaria. RASHES: rashes noted Course Vital Signs: Vital signs: Vital Signs Temperature 98.9 F 05/25/20 23:47 Pulse Rate 118 H 05/25/20 23:47 Respiratory Rate 18 05/25/20 23:47 Blood Pressure 133/71 05/25/20 23:47 Pulse Oximetry 98 05/25/20 23:47 MDM - Allergic Reaction MDM Narrative: Medical decision making narrative: Patient is a 49-year-old female comes the ED with urticaria. She is having no trouble breathing, lip or tongue swelling. Exam is suggestive of urticarial rash. Patient was given IM Solu-Medrol and sent home with a prescription of prednisone. She was told to follow-up with PCP in 7 to 10 days. Return to ED precautions given. Patient understood and agrees with plan. Discharge Plan Discharge Patient Disposition: Home Clinical Impression: Urticaria Condition: Stable Prescriptions: New prednisone 50 mg tablet 50 mg PO DAILY 5 Days Qty: 5 RF: 0 No Action latanoprost 0.005 % drops 1 drop ophthalmic (eye) QDAY RF: 0 Refresh Liquigel 1 % drops, liquid gel 1 drop ophthalmic (eye) BID RF: 0 phentermine 30 mg capsule 30 mg PO DAILY Qty: 30 RF: 0 sertraline 50 mg tablet 50 mg PO DAILY Qty: 30 RF: 1 hydroxyzine pamoate [Vistaril] 50 mg capsule 50 mg PO BID PRN (Reason: anxiety) Qty: 60 RF: 0 ondansetron 4 mg tablet,disintegrating 4 mg PO Q8H PRN (Reason: nausea and vomiting) Qty: 7 RF: 0 Protonix 40 mg tablet,delayed release (DR/EC) 40 mg PO DAILY 30 Days Qty: 30 RF: 2 Discharge Orders: Discharge Order (Routine); Ordered 05/26/20 Ordered By: Jerome Willis Referrals: Ellen Ramirez DO [Primary Care Provider] - Discharge Diet: Regular Discharge Activity: Resume usual activity Patient Instructions: Urticaria (ED) Activity Restrictions/Additional Instructions: Follow-up with medical provider as directed. You can also continue taking Benadryl to help with rash as well. Take medications as prescribed. Return to the ER or your medical provider if condition worsens. Please read and understand discharge instructions. If any questions, please ask. 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
[2020-05-26 00:43] VITALS: BP 148/79; PULSE 90; RESP 16; O2SAT 97
== END 2020-05-26 00:44 | disposition home or self-care (01) ==
PROVIDERS: Emergency Provider Physician Assistant; PCP Family Medicine
DX: L50.9 Urticaria, unspecified (principal); Z87.891 Personal history of nicotine dependence
CPT/HCPCS: 12345; 96372; 99281; 99283; J2930

== ENCOUNTER 2020-07-28 14:13 | Outpatient (CLI) | payer MEDICAID, SELFPAY ==
[2020-07-28 14:49] LABS: Basophils % 0.4 %; Eosinophils # 0.1 10^3/uL (0.0-0.8); Eosinophils % 0.9 %; Hematocrit 42.8 % (37.0-47.0); Lymphocytes # 2.1 10^3/uL (0.8-4.8); Lymphocytes % 37.8 %; Mean Corpuscular HGB Conc 32.7 g/dL (30.0-36.0); Mean Corpuscular Hemoglobin 30.4 pg (28.0-34.0); Mean Platelet Volume 9.6 fL (7.4-10.4); Monocytes # 0.5 10^3/uL (0.2-0.9); Monocytes % 8.8 %; Neutrophils # 2.82 10^3/uL (1.8-7.7); Neutrophils % 51.9 %; Nucleated Red Blood Cells % 0 %; Platelet Count 236 10^3/cmm (130-400); Red Cell Distribution Width 12.5 % (12.1-15.1); White Blood Count 5.4 10^3/uL (4.0-10.0)
[2020-07-28 15:01] LABS: INR 0.95 (0.8-1.2)
[2020-07-28 15:36] LABS: Alanine Aminotransferase 22 U/L (0-33); Albumin Level 4.2 g/dL (3.5-5.2); Alkaline Phosphatase 77 IU/L (35-105); Anion Gap 14.2 (5-19); Aspartate Amino Transferase 19 U/L (0-32); Blood Urea Nitrogen 13 mg/dL (6-20); Carbon Dioxide 26 mmol/L (22-29); Chloride 103 mmol/L (98-107); Chol HDL Ratio 4.33 mg/dL (0.0-4.40); Cholesterol 186 mg/dL (0-200); Ferritin 401 ng/mL (15-150); Globulin 3.4 g/dL (1.3-4.6); Glomerular Filtration Rate 88.9 mL/min (90-130); Glucose 123 mg/dL (65-115); HDL Cholesterol 43 mg/dL (60-100); Iron 84 ug/dL (37-145); LDL Cholesterol Calculated 120 mg/dL (50-129); LDL HDL Ratio 2.79 RATIO (0.00-3.22); Magnesium 1.8 mg/dL (1.7-2.3); Osmolality Calculated 289 mOsm/kg (285-295); Percent Saturation 35.7 % (20-50); Phosphorus 2.9 mg/dL (2.5-4.5); Potassium 4.2 mmol/L (3.5-5.1); Sodium 139 mmol/L (136-145); Total Bilirubin 0.3 mg/dL (0.15-1.2); Total Iron Binding Capacity 235 mcg/dl; Total Protein 7.6 g/dL (6.6-8.7); Triglycerides 116 mg/dL (0-150); Unsaturated Iron Binding 151 ug/dL (112-347); Vitamin B12 536 pg/mL (232-1245)
[2020-07-28 16:00] LABS: Calcium 9.4 mg/dL (8.5-10.5)
[2020-07-28 16:11] LABS: Folate Level 15.7 ng/mL (4.8-37.3)
[2020-07-28 18:28] LABS: Estmated Average Glucose 120; Hemoglobin A1C 5.8 % (4.0-6.0)
[2020-07-28 19:17] LABS: Parathyroid Hormone 48.1 pg/mL (15-65)
[2020-07-30 17:28] LABS: Calcium 9.8 mg/dL (8.5-10.5)
== END 2020-07-28 14:14 | disposition home or self-care (01) ==
PROVIDERS: PCP Family Medicine; Visit Provider Surgery
DX: E66.9 Obesity, unspecified (principal); E88.81 Metabolic syndrome and other insulin resistance; K21.9 Gastro-esophageal reflux disease without esophagitis
CPT/HCPCS: 36415; 80053; 80061; 82310; 82607; 82728; 82746; 83036; 83540; 83550; 83735; 83970; 84100; 84443; 85014; 85018; 85025; 85610

== ENCOUNTER 2020-10-11 23:08 | Emergency (ER) | payer MEDICAID, SELFPAY ==
[2020-10-11 23:23] VITALS: BP 160/91; PULSE 93; RESP 17; TEMP 36.7; O2SAT 95; BMI 33.3
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
[2020-10-12] MEDS: diphenhydrAMINE 50 mg/mL SDV 1mL 25 MG IVP (01:03)
[2020-10-12] MEDS: metoclopramide 5 mg/mL SDV 2 mL 10 MG IVP (01:06)
[2020-10-12] MEDS: sodium chloride 0.9% 500 ML 999 ML IV (01:20)
[2020-10-12 01:40] VITALS: BP 139/84; PULSE 95; O2SAT 98
[2020-10-12] MEDS: ketorolac 30 mg/mL INJ 15 MG IVP (02:03)
[2020-10-12] MEDS: dexamethasone 4 mg/mL INJ 10 MG IVP (02:09)
[2020-10-12 02:31] VITALS: BP 104/61; PULSE 81; O2SAT 96
== END 2020-10-12 02:30 | disposition home or self-care (01) ==
PROVIDERS: Emergency Provider Nurse Practitioner Family; PCP Family Medicine
DX: G43.901 Migraine, unspecified, not intractable, with status migrainosus (principal); Z87.891 Personal history of nicotine dependence
CPT/HCPCS: 96374; 96375; 99283; J1100; J1200; J1885; J2765; J7040

== ENCOUNTER → 2020-11-26 14:56 | Outpatient (BNVA) | payer MEDICAID, SELFPAY | PROVIDERS: PCP Family Medicine; Visit Provider Nurse Practitioner Family | DX: S46.911A Strain of unspecified muscle, fascia and tendon at shoulder and upper arm level, right arm, initial encounter (principal); M25.511 Pain in right shoulder; X58.XXXA Exposure to other specified factors, initial encounter | CPT/HCPCS: 73030 ==

== ENCOUNTER → 2020-12-23 10:44 | Outpatient (BNVA) | payer MEDICAID, SELFPAY | PROVIDERS: PCP Family Medicine; Visit Provider Counselor Mental Health | DX: F42.9 Obsessive-compulsive disorder, unspecified (principal); F43.11 Post-traumatic stress disorder, acute | CPT/HCPCS: 90834 ==

== ENCOUNTER 2020-12-25 12:44 | Outpatient (CLI) | payer MEDICAID, SELFPAY ==
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
--- NOTE | 2020-12-25 13:00 | IR_ITS ---
WS: [id number] SHOULDER ARTHROGRAM RIGHT Fluoroscopic guided right shoulder arthrogram CLINICAL INFORMATION: M25.511 - Pain in right shoulder COMPARISON: None. PROCEDURE: The procedure including risks, benefits and complications were discussed with the patient, who agreed to proceed. Using sterile technique, the patient was prepped and draped in the usual ster ile fashion. After 1% lidocaine injection using fluoroscopic guidance, a 22-gauge spinal needle was a dvanced into the glenohumeral joint. Approximately 13 ml of a solution containing 5 ml normal saline, 10 ml Omnipaque 300, 5 ml 1% lidocaine. No immediate complications. FLUOROSCOPY TIME: 1.0 minutes. IR/IR arthrogram shoulderRT [id number] IMPRESSION: Uncomplicated fluoroscopic-guided right shoulder arthrogram. CT to follow
[2020-12-25] MEDS: iohexol 300 mg/mL 50 mL Btl INTRA-ARTI (13:50)
== END 2020-12-25 12:45 | disposition home or self-care (01) ==
LOC: RADWPI 12:46
PROVIDERS: PCP Family Medicine; Visit Provider Orthopaedic Surgery
DX: M25.511 Pain in right shoulder (principal); M19.011 Primary osteoarthritis, right shoulder
CPT/HCPCS: 23350; 73201; 77002; Q9967

== ENCOUNTER → 2020-12-30 09:34 | Outpatient (BNVA) | payer MEDICAID, SELFPAY | PROVIDERS: PCP Family Medicine; Visit Provider Nurse Practitioner Psychiatric/Mental Health | DX: F41.9 Anxiety disorder, unspecified (principal); F43.11 Post-traumatic stress disorder, acute | CPT/HCPCS: 99215 ==

== ENCOUNTER → 2021-01-08 08:55 | Outpatient (BNVA) | payer MEDICAID, SELFPAY | PROVIDERS: PCP Family Medicine; Visit Provider Counselor Mental Health | DX: E66.01 Morbid (severe) obesity due to excess calories (principal); F43.12 Post-traumatic stress disorder, chronic; F41.1 Generalized anxiety disorder; F33.9 Major depressive disorder, recurrent, unspecified | CPT/HCPCS: 90834; 87635 ==

== ENCOUNTER 2021-01-13 18:31 | Inpatient (IN) | payer MEDICAID, SELFPAY ==
[2021-01-07 11:55] VITALS: BMI 33.3
--- NOTE | 2021-01-07 12:03 | ANES.PREANE2 ---
Pre-Anesthetic Assessment Pre-Anesthetic Assessment: Height/Weight: Height 1.65 m Weight 90.718 kg Preop Diagnosis: Abdominal pain Proposed Procedure: Operation Date: 01/13/21 07:00 Proposed Procedures p Laparoscopic Gastric Sleeve w/ EGD 87990 95906 e66.01(Not Applicable) - James Becker MD Familial anesthetic complications: None Social: Social History: No alcohol and No tobacco Comment: forme rsmoker Exam: Pre-Anes Outpt Exam: alert, oriented x 3, clear to auscultation bilaterally and regular rate & rhythm Airway: MP: 2 Dentition: Other (no teeth) Neuropsych: Comments: hx brain aneurysm w/ craniectomy Anesthetic Plan: ASA status: 2 Anesthesia: General Risk of > 500 ml blood loss (7ml/kg in children): No PFSH Anesthesia PFSH: Medical History Bone spur of acromioclavicular joint Brain aneurysm Depression Insomnia, persistent Intervertebral disc disorders with radiculopathy, lumbosacral region Obesity Right shoulder pain Strain of right shoulder Surgical History H/O: hysterectomy History of colonoscopy History of esophagogastroduodenoscopy (EGD) S/P appendectomy S/P cataract surgery S/P craniotomy S/P D&C (status post dilation and curettage) S/P tonsillectomy and adenoidectomy Family History Mother Bleeding disorder Anesthesia complication Other CAD (coronary artery disease) Cancer Diabetes Hyperlipidemia Hypertension Stroke Suicide Social History Smoking and tobacco status: never smoked Alcohol intake: never Female Reproductive History: Date of last menstrual period: 03/18/99 Data Anesthesia Cardiac Studies: No Data to Display
[2021-01-13] VITALS (24 sets, daily range): BP systolic 121–155; BP diastolic 72–98; PULSE 68–95; RESP 14–22; TEMP 36.1–36.9; O2SAT 96–100
[2021-01-13] MEDS: scopolamine 1.5 Patch 1 PATCH TRANSDERMA (08:54)
[2021-01-13] MEDS: sodium chloride 0.9% 1,000 ML 999 ML IV (09:35)
[2021-01-13] MEDS: famotidine 20 mg/2 mL INJ 40 MG IVP (09:36)
[2021-01-13] MEDS: heparin 5,000 unit/mL INJ 1 mL 5000 UNIT SUBCUT (09:37)
--- NOTE | 2021-01-13 10:01 | P.ANESUD_ITS ---
Pre-Anesthetic Update Pre-Anesthetic Assessment: Date of Surgery/Procedure: 01/13/21 Preop Tammi gnosis: Abdominal pain Proposed Procedure: Operation Date: 01/13/21 10:05 Proposed Procedures p Laparoscopic Gastric Sleeve w/ EGD 61425 42270 e66.01(Not Applicable) - James Becker MD Any changes to Pre-Anesthetic Assessment?: No Vitals: Temperature 97 F L 01/13/21 08:41 Temperature Source Temporal Artery S can 01/13/21 08:41 Pulse Rate 81 01/13/21 08:41 Respiratory Rate 18 01/13/21 08:41 Blood Pressure 137/96 01/13/21 08:41 Blood Pressure [place] n 109 01/13/21 08:41 Pulse Oximetry 96 01/13/21 08:41 Oxygen Delivery Me thod 01/13/21 08:41 Exam: Pre-Anes Outpt Exam: alert, oriented x 3, clear to auscultation bilaterally and regular rate & rhythm Cardiac Studies: No Data to Display
[2021-01-13] MEDS: midazolam 1 mg/mL INJ 2 mL 2 MG IVP (10:09)
[2021-01-13] MEDS: sodium chloride 0.9% 1,000 ML 30 ML IV (11:18)
[2021-01-13] MEDS: clindamycin 900 MG/50 ML PREMIX 100 MG IV ×2 (11:20→16:22)
--- NOTE | 2021-01-13 11:28 | W.PM.OPSUD ---
Surgery/Procedure H&P Update DATE OF PROCEDURE: January 13, 2021 DATE H&P PERFORMED: 12/24/20 H&P UPDATE INFORMATION: I have reviewed H&P completed within last 30 days, I have examined patient prior to procedure and No changes to prior documentation PREOP DIAGNOSIS: Obesity PRIMARY INDICATION FOR PROCEDURE: The same PLANNED PROCEDURE: Operation Date: 01/13/21 10:05 Proposed Procedures p Laparoscopic Gastric Sleeve w/ EGD 60331 [id number] e66.01(Not Applicable) - James Becker MD
[2021-01-13] MEDS: acetaminophen 1,000 MG/100 ML PIGGYBACK 400 MG IV ×2 (11:45→22:04)
--- NOTE | 2021-01-13 14:45 | PC.NURSE ---
olympus egd scope used intraoperatively scope #[id number]
--- NOTE | 2021-01-13 15:19 | PC.NURSE ---
called and spoke with patient's friend Ji who was here with patient to let him know surgery is taking longer and will keep him updated.
--- NOTE | 2021-01-13 16:46 | PC.NURSE ---
Russel Spoke with patient's friend Ji and gave him an update. He is going to leave facility to run an errand. Told him I would call if anything changes or we finish. SHANTE
--- NOTE | 2021-01-13 18:01 | PC.NURSE ---
spoke with patient's friend Ji and gave him an update
--- NOTE | 2021-01-13 18:36 | P.OP_ITS ---
Operative Report Date of procedure: January 13, 2021 Pre-op Diagnosis: Obesity Post-op diagnosis: same Procedure Done: Laparoscopic vertical sleeve gastrectomy Laparoscopic gastrogastrotomy with hand anastomosis and intraoperative EGD Intra abdominal drain placement Implants: Pieces of Surgicel towards the superior pole of the spleen Specimens removed/disposition: Subtotal gastrectomy sutures marked proximal Surgeon: James Becker Heel Seat Fitter Machine: Surgeon Heel Seat Fitter Machine Dr. Sosa Surgical techs Himanshu Elias Cecelia Circulating nurses Siobhan and Divine Martinez Anesthesia: General (cardiothoracic icu rn Long and Daniela) Estimated blood loss (mL): 50 IV fluids (mL): 2,500 IV fluids: 500 ml albumin 5% Urine output (mL): 300 Complications: Inadvertent narrowing of the conduit and creation of gastrogastrostomy Condition: stable Disposition: floor Brief History: History of obesity with associated multiple medical comorbidities. Full H&P and informed consent per chart Procedure: Laparoscopic vertical sleeve gastrectomy Intraoperative EGD Handsewn gastrogastrostomy with interrupted 2-0 silk sutures Completion EGD to rule out intraoperative leak Left-sided Intra-abdominal drain placed 19 Vietnamese round Jan Patient was identified in holding area , appropriate pharmacologic DVT prophylaxis was given and preoperative IV fluid hydration, patient was then taken to the operating room where the patient was placed in supine position, intubated by anesthesia prophylactic antibiotics were given per protocol,Time- out was done verifying the patient's name/date of /planned procedure and destination after the procedure, all were in agreement. SCDs confirmed to be functioning, and beta desiree protocol was confirmed. A Morrow catheter was inserted by the circulating nurse revealing clear urine. A foot board was applied to secure the patient while the patient is placed in reversed Trendelenburg, all pressure points were padded, and the patient was appropriately secured to the table, anesthesia was asked to rotate the table back and forth to verify that the patient is appropriately secured, and that was the case. The abdomen was prepped and draped under the usual sterile technique. A 1 cm transverse incision was made with a 15 blade scalpel approximately 15 cm below the xiphoid process and 3 cm left of the midline. A 12 mm optical trocar port was placed under direct vision into the peritoneal cavity without evidence of injury to peritoneal structures upon entry. The peritoneal cavity was insufflated with carbon dioxide gas up to 15 mmHg pressure. A 45? angle laparoscopy was placed through the port into the peritoneal cavity there was no significant blood, fluid, or evidence of intra-abdominal injury under direct visualization a 5 mm trocar port was placed in the left lateral flank and 12 mm trocar port was placed in the right epigastric region and a fourth 5 mm trocar port was placed in the mid epigastric region more caudad than and medial to the previous port. A subxiphoid stab incision was made and dissection into the peritoneum with 5 mm obturator. A grasping laparoscopic clamp was inserted through here and clamped to the right wei of the diaphragm to elevate The liver for the entirety of the case. Patient was then placed in the reversed Trendelenburg Following this, the greater curvature of the stomach was freed from the omentum using the harmonic scalpel. This division included the short gastric vessels proximally, encountered some bleeding from the short gastric vessels and multiple 5 mm clips were applied and a piece of Surgicel as well and that helped with appropriate hemostasis. Following that dissection was carried from approximately 4 cm-6 cm proximal to the pylorus and extending all the way up to the angle of Hiss. During this process the posterior aspect of the stomach was mobilized from the underlying peritoneum. With the greater curvature of the stomach exposed from within 4-6 cm of the pylorus and extending to the angle of Hiss, which also included the posterior stomach. The stomach at that point appeared to be floppy so I decided prior to insertion of the bougie to start dividing the stomach with GI staplers to have better positioning of the bougie. I started using the [place] Laparoscopic ROYER linear cutting stapler with Endopath reinforcement using green load followed by Gold loads under direct visualization putting into consideration an appropriate estimate of a distance at least 4 cm from the lesser curvature towards the greater curvature to facilitate placement of the bougie and to carry on with creation of the gastric conduit.Noticed to have extensive fat condensation towards the lesser curvature. At that point an attempt to place a 40 Vietnamese bougie passed under direct vision through the esophagus, stomach by the anesthesia provider yet the bougie would not pass at certain point at the proximal part of the stomach and would pass towards the greater curvature. That was done under direct visualization of the laparoscopic view. After multiple attempts I decided that we need an endoscopy to rule out potential stricture formation or narrowing at the proximal portion of the conduit. At that point an intraoperative EGD was inserted by my partner Dr. Sosa as he joined me at this part of the procedure were the scope was able to go towards the greater curvature but would not pass via the conduit proximally due to narrowing of that portion, at this point it was realized that the distal part of the conduit is not in continuity with the proximal part as planned, so the decision at that time was taken to create a gastrogastrostomy between the proximal stomach portion and the distal conduit and I continued the sleeve gastrectomy onto the greater curvature of the proximal portion of the stomach, where the EGD was used as an template to create the proximal conduit, so I did continue blue loads with Endopath reinforcement to continue the gastric sleeve.This was carried all the way to the [facility] without complication. Following that I created two gastrotomies [id number] between the distal part of the proximal conduit and another gastrotomy of the proximal part of distal conduit, and under direct visualization A handsewn wide open gastrogastrostomy was created by me using 2-0 silk suture full thickness including the mucosal lay er for sound and tension-free anastomosis and additional anchoring sutures were used at the end at the seromuscular layer to alleviate any tension. The scope was then passed distally and the anastomosis was widely patent at the same time The staple line along the remaining tubularized stomach was tested for leaks and bleeding under direct vision that was negative.The scope was passed all the way by my partner towards the pylorus without complication. EGD was taken out at this point after deflation of the tubularized stomach. I elected at this point to grab a portion of omentum and anchor it to the tubularized conduit onto the seromuscular layer proximal and distal sutures were placed to cover the anastomosis site. The transected partial stomach, which included the greater curvature, was removed from the peritoneum through the first 12 mm trocar site.Prior to closure of the fascia. An interrupted #1 PDS suture on a granny needle suture passer was used to close the right epigastric and the other 12 mm trocar left of the midline fascial defects under direct visualization. I elected at this point to pass an 19 Vietnamese round Jan drain via one of the left lateral 5 mm trochars under direct visualization underneath the left lobe of the liver and at the site of the gastrogastrostomy anastomosis. The other trocars were removed under direct vision and no evidence of bleeding was identified. Final survey laparoscopy was done showing no injuries or bleeding and the site of the previously bleeding short gastrics were checked again and there was no evidence of bleeding.. Bilateral TAP (transversus abdominous plain peripheral nerve block )block using Exparel 20 mL Exparel 40 ml Normal saline 20 ml bupivacaine 0.25% 30 mL on each side injected 20 mL injected the port sites The pneumoperitoneum was decompressed. All skin incisions were irrigated with saline, then closed with cb, followed by application of sterile dressings. The patient was extubated and taken to the recovery room with normal vital signs. I was present for the whole entire procedure. Due to medical necessity, I asked Dr. Sosa to assist me as a surgeon library services assistant in the procedure for the endoscopic component.
[2021-01-13] MEDS: HYDROmorphone 1 mg/mL INJ 1 mL 0.5 MG IVP ×2 (18:51→19:27)
[2021-01-13] MEDS: ondansetron 2 mg/ML SDV 2 mL 4 MG IVP ×2 (18:55→21:27)
--- NOTE | 2021-01-13 19:24 | ANE.PACU2 ---
Inpatient post-anesthesia follow up: Airway intact: Yes Vital signs: Temperature 97.8 F Pulse Rate 78 Respiratory Rate 18 Blood Pressure 132/83 Pulse Oximetry 98 Oxygen Delivery Me thod Simple Mask Oxygen Flow Rate 8 Fraction of Inspir ed Oxygen Hydration adequate: Yes Nausea and vomiting: No Pain level: 3 Additional Comments: Sedated
[2021-01-13] MEDS: HYDROmorphone 1 mg/mL INJ 1 mL (20:39)
[2021-01-13] MEDS: lactated ringers 1,000 ML 150 ML IV (20:43)
--- NOTE | 2021-01-13 21:03 | PC.NURSE ---
TRANSFER FROM OR Pt to floor from OR at 2030. Is awake and alert. c/o severe abdominal pain. Bandaids to incisions RUQ and medial abdomen all C&D. MONI Drain intact left abdmen with sanguinous drainage. IV fluids started at 150ml/hr rate. Morrow in place and draining. BLE SCD's in place. O2 in place at 3l per NC. Assisted to reposition for comfort
--- NOTE | 2021-01-13 21:05 | SUR.PHASEI ---
1843PT TO PACU AWAKES TO VOICE PT CRYING AND MOANING MOVING SLIGHTLY IN BED GOOD RESP EFFORT NOTED ABD SOFT WITH 5 SITES TO ABD WITH BANDAIDS FOR DRESSING AND 6TH SITE WITH DRAIN SPONGE, DRAIN MONI COMPRESSED WITH RED SECRETIONS NOTED 3/4 FULL BUT COMPRESSED. SCDS ON WATKINS TO DD DRAINAGE WITH YELLOW URINE NOTED. IV PATENT [address] BLACKBURN TO GO TO [facility] FIRST FOR PAIN RELIEF IN PACU PER PACU PHASE 1 PROTOCOL. SEE MED GIVEN PT SLEEPS OFF AND ON BUT RATES PAIN AT 10 ON AWAKENING AND SHOWS OBVIOUS S/S OF PAIN. MOANING , CRYING OUT ETC. 1854 PT C/O OF PAIN ON AWAKENING SEE EARLIER MED PT ALSO C/O OF NAUSEA , SEE MED GIVEN 1926 PT AWAKES MOANING , WRITHING IN BED RATES PAIN ( UNBEARABLE) DR BLACKBURN AT BEDSIDE, SEE MED GIVEN FOR PAIN PER DR PARHAM OK, PT MOSTLY SLEEPS AND MAINTAINS SATS OVER 94% ON 3LNC , BUT WHEN SHE AWAKES SHE IS CRYING OUT WITH PAIN., 2010 PT SLEEPS IF NOT DISTURBED VSS GOOD RESP EFFORT, SATS OVER 94% ON 3LNC .PT REPORT CALLED TO FLOOR AND PT TO FLOOR PER BED PT CALLED AND WILL GO TO FLOOR TO SEE PT.
[2021-01-13] MEDS: morphine 4 mg/mL SDV 1 mL 2 MG IVP (22:48)
[2021-01-13] MEDS: HYDROmorphone 1 mg/mL INJ 1 mL IVP (23:22)
[2021-01-13] MEDS: metoclopramide 5 mg/mL SDV 2 mL IVP (23:23)
[2021-01-14] VITALS (18 sets, daily range): BP systolic 99–117; BP diastolic 67–74; PULSE 64–108; RESP 14–20; TEMP 36.6–36.9; O2SAT 88–100
[2021-01-14] MEDS: clindamycin 900 MG/50 ML PREMIX 100 MG IV ×3 (00:24→17:03)
[2021-01-14] MEDS: HYDROmorphone 1 mg/mL INJ 1 mL IVP ×2 (01:58→05:02)
[2021-01-14] MEDS: lanolin oint 7 gm 1 APPLIC TOPICAL (02:19)
--- NOTE | 2021-01-14 02:34 | PC.NURSE ---
Inaccurate Output Recording: While giving pain medication at 2330 noticed the floor wet on the opposite side of the bed where the shafer was hanging. Shafer drain spout was not clamped and it had leaked all under the bed and was pooling in the corner of the room at the head of her bed. Corrected issue but the pt urine output will not be accurate tonight.
[2021-01-14] MEDS: lactated ringers 1,000 ML 150 ML IV ×2 (04:06→11:23)
[2021-01-14] MEDS: ondansetron 2 mg/ML SDV 2 mL 4 MG IVP ×3 (05:02→22:27)
[2021-01-14] MEDS: heparin 5,000 unit/mL INJ 1 mL 5000 UNIT SUBCUT (05:05)
--- NOTE | 2021-01-14 05:40 | PM.PN ---
Subjective Subjective: Interval history: Patient complains of pain at the incision sites, reports nausea. 600 mL of urine output overnight shift. Otherwise patient has been ambulatory and lab work is pending Medications: Reviewed: Yes Vitals/I&O/Wt Last Vital Signs Temp 97.8 F 01/14/21 03:30 Pulse 71 01/14/21 03:30 Resp 16 01/14/21 05:02 BP 117/74 01/14/21 03:30 Pulse Ox 100 01/14/21 03:30 01/13/21 01/13/21 01/14/21 14:59 22:59 06:59 Intake Total 2150 / 2150 2250 / 4400 1050 / 5450 Output Total 820 / 820 785 / 1605 Balance 2150 / 2150 1430 / 3580 265 / 3845 Physical Exam Narrative: EXAM NARRATIVE: Patient is conscious alert oriented X3 BMI 33.3 Head and neck examination PERRLA no masses no cervical lymphadenopathy no jaundice Cardiac examination audible S1-S2 no murmurs no gallops no arrhythmias Chest is clear bilateral,abscence of Rhonchi or wheezes,no surgical emphysema Abdomen nontender except at the incision site nondistended soft no organomegaly guarding or rigidity/no signs of peritonitis. Dressing in place Left-sided drain shows olson colored output, 250 ml overnight shift. Extremities no cyanosis no clubbing no edema Morrow catheter in place with clear urine. Urinary Catheter Management^: Morrow: Cath Placed During This Visit: yes Reason for Continuing Indwelling Catheter: Perioperative Use in Selected Surgeries Urinary Catheter Date of Insertion: 01/13/21 Urinary Catheter Time of Insertion: 13:50 A&P Assessment and plan (1) Status post laparoscopic sleeve gastrectomy: Status post laparoscopic sleeve gastrectomy with gastrogastrostomy 01/13/2021. We will continue n.p.o. status and follow an upper GI study Continue IV fluid resuscitation Continue ambulation We will add Phenergan IM for nausea We will increase morphine to 4 mg IV every 2 hours as needed for pain Ice packs at the incision sites Incentive spirometer every hour Wean off O2 to room air Status: Acute Attestations Medical Necessity Statement*: Patient requiring inpatient hospitalization passing 2 midnights for pain control, following upper GI study Time Spent in Patient Care: (>than 50% of time spent in counselling and/or direct pt care on unit). Coding Level of Care Code Acute Flag Football Coach for Chg Fwd Diagnoses Status post laparoscopic sleeve gastrectomy Z98.84
--- NOTE | 2021-01-14 05:59 | PC.NURSE ---
DR BECKER ROUNDS Pt ambulated in martinez this am and up in chair after. Dr Becker in for morning rounds. pt c/o some nausea after walk. Orders received for dose of IM Phenergan and to increase dose of Morphine for pain.
[2021-01-14] MEDS: morphine 4 mg/mL SDV 1 mL IVP ×5 (06:32→22:28)
[2021-01-14] MEDS: promethazine 25 mg/mL SDV 1 mL 12.5 MG IM (06:53)
--- NOTE | 2021-01-14 08:00 | FL_ITS ---
WS: [id number] Gastrografin upper GI series Clinical Data: Status Post Gastric Sleeve Comparison: None. Fluoroscopy time: 0.6 minutes Findings: The Gastrografin proceeded through the esophagus and into the stomach. The stomach showed no extravas ation. The gastric sleeve was intact. FL/FL upper GI series [id number] Impression: Intact gastric sleeve.
--- NOTE | 2021-01-14 08:45 | PC.NURSE ---
Patient out of room for now to GI lab
[2021-01-14] MEDS: diatrizoate meglumine 120 mL Sol PO (08:57)
[2021-01-14] MEDS: pantoprazole 40 mg SDV IVP (09:00)
[2021-01-14] MEDS: metoclopramide 5 mg/mL SDV 2 mL IVP (09:01)
[2021-01-14 10:08] LABS: Hematocrit 33.3 % (37.0-47.0); Hemoglobin 10.9 g/dL (11.5-15.3)
--- NOTE | 2021-01-14 10:10 | PC.CHAP ---
Pastoral Care Encounter/Spiritual Assessment Type of Contact [] Declined director of consumer marketing visit [] Patient/Family/Request visit [] Outpatient visit [] Follow-up visit [] Physician referral [] Code/Alert [x] Routine visit [] Staff referral [] Actively dying [] Patient sleeping [] Family support [] [] Out of room [] Palliative care [] [x] Receiving care in room [] Pre-surgical visit [] Trauma [] Long length of stay [] ICU visit [] Other: Relational/Emotional Strength [] Patient feels connected with others/family/visitors/staff [] Distress [] Loneliness/isolation [] Abandonment Spirituality of Patient [] Person of Nory [] Attends Gnosticist of their Nory [] Believes in Prayer [] Reads Bible or Latter Day materials [] There are Spiritual issues to be addressed Weight Checker Interventions [x] Prayer [] Active listening [] Non-anxious presence [] Spiritual/emotional support [] Crisis/trauma care [] Spiritual counseling [] Bereavement support [] Provided bereavement packet [] Provided Bible/devotional materials [] Provided toy/stuffed animal, coloring book to patient or family member [] Provided Communion [] Anointing/[place] [] Salvation [x] Completed spiritual assessment [] Other: Impact on Illness or Injury [] Angry [] Fearful [] Anxious [] Often cries [] Exhaustion [] Unable to work [] Unable to attend rastafarian [] Unable to walk/stand [] Unable to read [] Unable to drive [] Unable to eat/drink [] Unable to sleep [] Unable to be with family [] Patient intubated [] Other: Summary Time spent with patient
[2021-01-14 10:26] LABS: Anion Gap 11.7 (5-19); Blood Urea Nitrogen 9 mg/dL (6-20); Calcium 7.4 mg/dL (8.5-10.5); Carbon Dioxide 24 mmol/L (22-29); Chloride 105 mmol/L (98-107); Glomerular Filtration Rate 106.3 mL/min (90-130); Glucose 169 mg/dL (65-115); Osmolality Calculated 287 mOsm/kg (285-295); Potassium 3.7 mmol/L (3.5-5.1); Sodium 137 mmol/L (136-145)
--- NOTE | 2021-01-14 10:45 | PC.NURSE ---
Patient ambulated around the nurses station and back to her room approximately 150 feet at this time. Patient tolerated well.
--- NOTE | 2021-01-14 11:59 | PC.NUTR ---
Nutrition consult received for post bariatric surgery. Recommend advance diet gradually pending tolerance of clears and per MD discretion. Will add Prosource Gelatein to trays. Recommend to encourage intake of this higher-protein jello over other items on tray due to high protein and low sugar content. Per MD, go easy on intake at this time. See full RD assessment for further details.
[2021-01-14] MEDS: phenol oral Spray 177 mL 3 SPRAY MUCOUS MEM (13:20)
--- NOTE | 2021-01-14 13:37 | PC.NURSE ---
Removed Morrow Catheter intact at this time. Patient tolerated well.
[2021-01-14] MEDS: HYDROcodone-acetaminophen 5-325 mg Tablet 1 TAB PO (14:33)
[2021-01-14] MEDS: acetaminophen 1,000 MG/100 ML PIGGYBACK 400 MG IV (18:16)
--- NOTE | 2021-01-14 19:12 | PC.NURSE ---
Bedside report to Tomy MÁRQUEZ at thi time.
[2021-01-14] MEDS: HYDROcodone-acetaminophen 7.5-325 mg Tablet 1 TAB PO (20:49)
[2021-01-14] MEDS: lactated ringers 1,000 ML 125 ML IV (22:56)
[2021-01-15] VITALS (10 sets, daily range): BP systolic 100–142; BP diastolic 64–89; PULSE 85–109; RESP 14–19; TEMP 36.4–38.8; O2SAT 91–95
[2021-01-15] MEDS: clindamycin 900 MG/50 ML PREMIX 100 MG IV ×3 (00:04→17:44)
[2021-01-15] MEDS: acetaminophen 1,000 MG/100 ML PIGGYBACK 400 MG IV (03:57)
[2021-01-15] MEDS: HYDROcodone-acetaminophen 7.5-325 mg Tablet 1 TAB PO ×4 (04:29→22:52)
[2021-01-15] MEDS: ondansetron 2 mg/ML SDV 2 mL 4 MG IVP ×2 (04:41→14:32)
--- NOTE | 2021-01-15 05:45 | PM.PN ---
Subjective Subjective: Interval history: Patient maintains to be in a better pain control mode. She still feels sore at the incision sites. Did not pass gas yet. Tolerating p.o. intake. Adequate urine output. Patient report some cough, denies any dysuria, nausea is better. Medications: Reviewed: Yes Vitals/I&O/Wt Last Vital Signs Temp 101.9 F H 01/15/21 03:40 Pulse 109 H 01/15/21 03:40 Resp 18 01/15/21 03:40 BP 105/64 01/15/21 03:40 Pulse Ox 92 01/15/21 03:40 01/14/21 01/14/21 01/15/21 14:59 22:59 06:59 Intake Total 1165 / 1165 1205 / 2370 409.583 / 2779.583 Output Total 550 / 550 90 / 640 260 / 900 Balance 615 / 615 1115 / 1730 149.583 / 1879.583 Physical Exam Narrative: EXAM NARRATIVE: Patient is conscious alert oriented X3 BMI 33.3 Head and neck examination PERRLA no masses no cervical lymphadenopathy no jaundice Cardiac examination audible S1-S2 no murmurs no gallops no arrhythmias Chest is clear bilateral,abscence of Rhonchi or wheezes,no surgical emphysema Abdomen nontender except at the incision sites nondistended soft no organomegaly guarding or rigidity/no signs of peritonitis. Skin cb in place Left-sided drain sanguineous output,60 ml overnight shift. Extremities no cyanosis no clubbing no edema Urinary Catheter Management^: Morrow: Cath Placed During This Visit: yes, but has since been removed by the nurse Reason for Continuing Indwelling Catheter: Decision to DC Catheter Urinary Catheter Date of Insertion: 01/13/21 Urinary Catheter Time of Insertion: 13:50 Date Urinary Catheter Removed: 01/14/21 Time Urinary Catheter Discontinued: 13:30 Data : 01/14/21 09:40 01/14/21 09:40 Attestation for Other Data: I personally reviewed and interpreted the following: (No evidence of extravasation and free flow of the contrast without evidence of strictures or narrowing of the conduit) Other data: The Gastrografin proceeded through the esophagus and into the stomach. The stomach showed no extravasation. The gastric sleeve was intact. FL/FL upper GI series [id number] Impression: Intact gastric sleeve. A&P Assessment and plan (1) Status post laparoscopic sleeve gastrectomy: Status post laparoscopic sleeve gastrectomy with gastrogastrostomy 01/13/2021. Continue p.o. intake We will drop LR to 75 mL/h Continue ambulation We will obtain chest x-ray to rule out pneumonia as patient spiked a fever of one 101.9 and if that is the case we will start the patient on Levaquin 750 mg IV daily. Urinalysis Education about the importance of incentive spirometer, I am concerned of development of pneumonia Pain control Continue drain care and teach Ice packs at the incision sites Wean off O2 to room air Status: Acute Attestations Medical Necessity Statement*: Patient requiring inpatient hospitalization passing 2 midnights for pain control, fever work-up. Time Spent in Patient Care: (>than 50% of time spent in counselling and/or direct pt care on unit). Coding Level of Care Code Acute Library Circulation Clerk for Chg Fwd Diagnoses Status post laparoscopic sleeve gastrectomy Z98.84
--- NOTE | 2021-01-15 06:14 | XR_ITS ---
WS: [id number] Portable AP upright chest, 01/15/2021 Clinical Data: Status post laparoscopic sleeve gastrectomy postoperative Comparison: Portable chest, 08/27/2018. Findings: There are bilateral lower lobe atelectatic changes. There is left midlung atelectasis. The heart is slightly enlarged. The aortic arch and descending aorta show tortuosity. No pneumothorax is present. Monitor leads are on the chest wall. XR/XR chest 1V portable [id number] Impression: 1. Patchy bilateral lower lobe atelectasis and left mid lung atelectasis. 2. Cardiomegaly.
[2021-01-15] MEDS: lactated ringers 1,000 ML 75 ML IV (06:24)
[2021-01-15 07:16] LABS: Hematocrit 29.9 % (37.0-47.0); Hemoglobin 9.6 g/dL (11.5-15.3)
[2021-01-15 07:20] LABS: Add Urine Microscopic? NO; Charge for UA Resulting for Rev
[2021-01-15 07:28] LABS: Bilirubin Urine Neg (Negative); Blood Urine Neg (Negative); Glucose Urine UA Norm (Normal); Ketones Urine 1+ (Negative); Leukocyte Esterase Urine Negative (Negative); Nitrate Urine Negative (Negative); Protein Urine Neg (Negative); Urine Appearance Clear (CLEAR); Urine Color Yellow (Yellow); Urobilinogen Urine Norm (Negative); pH Urine 6 (5-7)
[2021-01-15 07:33] LABS: Anion Gap 10.6 (5-19); Blood Urea Nitrogen 7 mg/dL (6-20); Calcium 7.8 mg/dL (8.5-10.5); Carbon Dioxide 25 mmol/L (22-29); Chloride 109 mmol/L (98-107); Glomerular Filtration Rate 106.3 mL/min (90-130); Glucose 131 mg/dL (65-115); Osmolality Calculated 292 mOsm/kg (285-295); Potassium 3.6 mmol/L (3.5-5.1); Sodium 141 mmol/L (136-145)
[2021-01-15] MEDS: levofloxacin-dextrose 5 % 750 MG/150 ML PREMIX 100 MG IV (08:06)
[2021-01-15] MEDS: pantoprazole 40 mg SDV IVP (08:07)
[2021-01-15] MEDS: metoclopramide 5 mg/mL SDV 2 mL IVP (09:24)
[2021-01-15] MEDS: HYDROmorphone 1 mg/mL INJ 1 mL IVP (17:50)
[2021-01-16] VITALS (7 sets, daily range): BP systolic 135–153; BP diastolic 76–91; PULSE 72–96; RESP 16–18; TEMP 36.3–37.6; O2SAT 93–97
[2021-01-16] MEDS: clindamycin 900 MG/50 ML PREMIX 100 MG IV (01:30)
[2021-01-16] MEDS: lactated ringers 1,000 ML 75 ML IV (03:01)
[2021-01-16] MEDS: levofloxacin-dextrose 5 % 750 MG/150 ML PREMIX 100 MG IV (06:13)
--- NOTE | 2021-01-16 06:37 | P.PN_ITS ---
Subjective Subjective: Interval history: Patient overall feels better and tolerating p.o. intake. No bowel movements yet Medications: Reviewed: Yes Vitals/I&O/Wt Last Vital Signs Temp 97.3 F L 01/16/21 03:49 Pulse 92 01/16/21 06:00 Resp 18 01/16/21 03:49 BP 147/76 01/16/21 03:49 Pulse Ox 93 01/16/21 03:49 01/15/21 01/15/21 01/16/21 14:59 22:59 06:59 Intake Total 300 / 300 570 / 870 1326.25 / 2196.25 Output Total 350 / 350 550 / 900 950 / 1850 Balance -50 / -50 20 / -30 376.25 / 346.25 Physical Exam Narrative: EXAM NARRATIVE: Patient is conscious alert oriented X3 BMI 33.3 Head and neck examination PERRLA no masses no cervical lymphadenopathy no jaundice Cardiac examination audible S1-S2 no murmurs no gallops no arrhythmias Chest is clear bilateral,abscence of Rhonchi or wheezes,no surgical emphysema Abdomen nontender except at the incision sites nondistended soft no organomegaly guarding or rigidity/no signs of peritonitis. Skin cb in place.some bruises at the incision sites Left-sided drain sero-sanguineous output,100 ml overnight shift. Extremities no cyanosis no clubbing no edema Urinary Catheter Management^: Morrow: Cath Placed During This Visit: yes, but has since been removed by the nurse Reason for Continuing Indwelling Catheter: Decision to DC Catheter Urinary Catheter Date of Insertion: 01/13/21 Urinary Catheter Time of Insertion: 13:50 Date Urinary Catheter Removed: 01/14/21 Time Urinary Catheter Discontinued: 13:30 Data : 01/16/21 05:33 01/15/21 05:57 A&P Assessment and plan (1) Status post laparoscopic sleeve gastrectomy: Status post laparoscopic sleeve gastrectomy with gastrogastrostomy 01/13/2021. 1-Continue p.o. intake 2-Hep-Lock IV fluid 3-Continue ambulation 4-Chest x-ray showed;Patchy bilateral lower lobe atelectasis and left mid lung atelectasis. Cardiomegaly. We will continue Levaquin and discontinue clindamycin 5- Urinalysis of insignificance 6-continue incentive spirometer every hour 7-Continue drain care and teaching 8-we will DC IV pain medications and administer an adult suppository 9-continue ice packs at the incision sites 10-Wean off O2 to room air Status: Acute Attestations Medical Necessity Statement*: Patient requiring inpatient hospitalization passing 2 midnights, awaiting bowel functions, antimicrobial therapy for concern of pneumonia, wean off IV narcotics. Time Spent in Patient Care: (>than 50% of time spent in counselling and/or direct pt care on unit) . Coding Level of Care Code Acute Oil Drilling Engineer for Chg Fwd Diagnoses Status post laparoscopic sleeve gastrectomy Z98.84
[2021-01-16 06:47] LABS: Hematocrit 29.2 % (37.0-47.0); Hemoglobin 9.6 g/dL (11.5-15.3)
[2021-01-16 07:12] LABS: Anion Gap 11.1 (5-19); Blood Urea Nitrogen 6 mg/dL (6-20); Carbon Dioxide 26 mmol/L (22-29); Chloride 107 mmol/L (98-107); Creatinine Clr Calc Pharmacy 151.4496; Glomerular Filtration Rate 131.1 mL/min (90-130); Glucose 83 mg/dL (65-115); Osmolality Calculated 289 mOsm/kg (285-295); Potassium 3.1 mmol/L (3.5-5.1); Sodium 141 mmol/L (136-145)
[2021-01-16] MEDS: HYDROcodone-acetaminophen 7.5-325 mg Tablet 1 TAB PO ×3 (08:26→17:44)
[2021-01-16] MEDS: glycerin adult supp 1 EACH PR (08:26)
[2021-01-16] MEDS: pantoprazole 40 mg SDV IVP (08:26)
[2021-01-16] MEDS: cyclobenzaprine 10 mg Tablet PO ×2 (11:51→21:45)
[2021-01-16] MEDS: scopolamine 1.5 Patch 1 PATCH TRANSDERMA (17:43)
--- NOTE | 2021-01-16 19:58 | PC.NURSE ---
Bedside report to Tomy MÁRQUEZ at this time.
[2021-01-17] VITALS: BP 148/83; PULSE 88; RESP 16; TEMP 36.9; O2SAT 94
[2021-01-17] MEDS: HYDROcodone-acetaminophen 7.5-325 mg Tablet 1 TAB PO ×2 (01:04→09:32)
[2021-01-17 03:48] VITALS: BP 124/78; PULSE 81; RESP 16; TEMP 37.2; O2SAT 94
[2021-01-17 06:00] VITALS: PULSE 80
[2021-01-17] MEDS: levofloxacin-dextrose 5 % 750 MG/150 ML PREMIX 100 MG IV (06:20)
[2021-01-17 07:54] VITALS: BP 126/82; PULSE 89; RESP 18; TEMP 36.9; O2SAT 95
[2021-01-17 08:00] LABS: Blood Urea Nitrogen 7 mg/dL (6-20); Calcium 8.2 mg/dL (8.5-10.5); Carbon Dioxide 26 mmol/L (22-29); Chloride 104 mmol/L (98-107); Creatinine Clr Calc Pharmacy 151.4496; Glomerular Filtration Rate 131.1 mL/min (90-130); Glucose 84 mg/dL (65-115); Osmolality Calculated 285 mOsm/kg (285-295); Sodium 139 mmol/L (136-145)
--- NOTE | 2021-01-17 08:13 | P.DS_ITS ---
Discharge Providers Date of Admission: 01/13/21 18:31 Date of Discharge: January 17, 2021 Attending Provider at Admission: James Becker MD Attending Provider at Discharge: James Becker MD Primary Care Provider: Ellen Ramirez DO Diagnoses at Discharge Discharge Diagnosis (1) Status post laparoscopic sleeve gastrectomy: Status: Resolved Reason for Visit Reason for Visit: lap ventical gastric sleeve Hospital Course Hospital Course This is a pleasant 50 years old female patient with history of obesity and associated multiple medical comorbidities undergone laparoscopic vertical sleeve gastrectomy with gastro gastrostomy due to inadvertent narrowing of the conduit. Postoperatively overall patient did well yet her pain control was requiring longer duration of IV analgesia. Patient undergone an upper GI study the following day and showed no extrava sation or strictures.Maintained to have stable vital signs and adequate urine output.Morrow catheter was taken out the following day and patient was started on p.o. intake which she tolerated well, she did have some nausea which was adequately managed by antinausea medications including scopolamine patch. Overall the left upper sided abdominal drain showed serosanguineous output that started to become more serous during the course of the hospitalization. At one time patient spiked a fever of one 101.9 and a chest x-ray was obtained that showed bilateral atelectasis and I was concerned about development of pneumonia so I added Levaquin 750 mg IV daily and patient did not spike fevers anymore except for low-grade temperature and eventually it was gone. Encourage more to work harder on the incentive spirometer with the appropriate pain control patient was able to do that and achieve better numbers on the spirometer. Also hypocalcemia was appreciated and calcium gluconate was given parenterally to replace that and eventually it came to 8.2 mg/dL. Patient requiring inpatient hospitalization passing 2 midnights for correction of electrolytes, appropriate pain control and waiting bowel function which ultimately she has been passing gas and had a bowel movement. Patient met the appropriate and safe criteria for discharge home. Heparin subcutaneous was held as the patient had drift in H&H and continue to have sequential compression devices and maintained to have stable H&H without requirement of blood transfusion. With the plan to discharge patient home she was sent home with Flexeril muscle relaxant that she did experience some discomfort of the right side of her torso in addition to Tums for calcium and will order potassium chloride as well to maintain appropriate potassium levels.In addition to p.o. narcotics.And antinausea medications and PPI. Physical Exam Narrative: EXAM NARRATIVE: Patient is conscious alert oriented X3 BMI 33.3 Head and neck examination PERRLA no masses no cervical lymphadenopathy no jaundice Cardiac examination audible S1-S2 no murmurs no gallops no arrhythmias Chest is clear bilateral,abscence of Rhonchi or wheezes,no surgical emphysema Abdomen nontender except at the incision sites nondistended soft no organomegaly guarding or rigidity/no signs of peritonitis. Skin cb in place.some bruises at the incision sites Left-sided drain sero-sanguineous output,100 ml overnight shift. Extremities no cyanosis no clubbing no edema Urinary Catheter Management^: Morrow: Cath Placed During This Visit: yes, but has since been removed by the nurse Reason for Continuing Indwelling Catheter: Decision to DC Catheter Urinary Catheter Date of Insertion: 01/13/21 Urinary Catheter Time of Insertion: 13:50 Date Urinary Catheter Removed: 01/14/21 Time Urinary Catheter Discontinued: 13:30 Discharge Data Data Completed and Pending: Completed Studies During Hospitalization Category Date Time Status [place] 06482 Routine Exams 01/14/21 08:00 Completed XR chest 1V adonis ble 55050 Urgent Exams 01/15/21 06:14 Completed Pathology: Surgic al [PTH] Routine Pth 01/13/21 18:05 Completed Pending at discharge Category Date Time Status ES surgery / GI i mages Routine Exams 01/13/21 11:04 Taken BMP [Basic [employer] lic Panel] Routine Lab 01/17/21 06:38 Results Labs from last 24 hours 01/17/21 06:38 Sodium 139 Potassium Pending Chloride 104 Carbon Dioxide 26 Anion Gap 12.0 BUN 7 Creatinine 0.5 GFR Calculation Pending Glucose 84 Calculated Osmolal ity 285 Calcium Pending Vitals: Last Vital Signs Temp 98.5 F 01/17/21 07:54 Pulse 89 01/17/21 07:54 Resp 18 01/17/21 07:54 BP 126/82 01/17/21 07:54 Pulse Ox 95 01/17/21 07:54 Discharge Plan Discharge Patient Disposition: Home Condition: Stable Prescriptions: New Protonix 40 mg tablet,delayed release (DR/EC) 40 mg PO DAILY 30 Days Qty: 30 RF: 2 Transderm-Scop 1 mg over 3 days patch 3 day 1 patch transdermal Q3D PRN (Reason: nausea and vomiting) Qty: 4 RF: 3 Zofran 4 mg tablet 4 mg PO Q8H PRN (Reason: nausea and vomiting) 20 Days Qty: 60 RF: 2 levofloxacin 750 mg tablet 750 mg PO DAILY 4 Days RF: 0 hydrocodone-acetaminophen 5-325 mg tablet 1 tab PO Q6H PRN (Reason: pain) Qty: 28 RF: 0 calcium carbonate 800 mg calcium /2 gram powder 500 mg PO DAILY 7 Days Qty: 454 RF: 0 cyclobenzaprine 10 mg tablet 10 mg PO BID PRN (Reason: muscle spasm) Qty: 20 RF: 0 potassium chloride 40 mEq/15 mL liquid 20 meq PO DAILY 5 Days Qty: 473 RF: 0 Continued latanoprost 0.005 % drops 1 drop ophthalmic (eye) QDAY RF: 0 Refresh Liquigel 1 % drops, liquid gel 1 drop ophthalmic (eye) BID RF: 0 sertraline 100 mg tablet 100 mg PO DAILY Qty: 30 RF: 1 hydroxyzine pamoate 50 mg capsule 50 mg PO BID PRN (Reason: anxiety) Qty: 60 RF: 1 Discharge Orders: Discharge Order (Routine); Ordered 01/17/21 Ordered By: James Becker Referrals: James Becker MD [Physician] - 1 week (Please call [facility] [place] [place] [facility] Operator Technician clinic on Tuesday to schedule an appointment to be seen in one week.) Discharge Diet: As Directed Discharge Activity: Limit activity as instructed Patient Instructions: Scopolamine (Absorbed through the skin), Hydrocodone/Acetaminophen (By mouth), Cyclobenzaprine (By mouth), Ondansetron (By mouth), Levofloxacin (By mouth), Pantoprazole (By mouth), Calcium Supplement (By mouth), Laparoscopic Sleeve Gastrectomy (DC), Opioid Safety Activity Restrictions/Additional Instructions: 1. Patient can shower after 48 hours from surgery 2. Drain care and education 3. Up and walking as and tolerated 4. Do not lift more than 5 pounds first 2 weeks after surgery and not more than 25 pounds 6 to 8 weeks after surgery. 5. Do not operate heavy machinery or drive while using pain medications. 6.Contact the office or return to the ER for worsening nausea vomiting fevers or chills, or noticing any redness around incision sites or discharge. 7. Avoid constipation can have Benefiber or Metamucil Discharge Attestations Time Spent in Discharge Care*: greater than 30 min Specific Discharge Activities: educating patient and educating and/or supporting family/caregiver Status at Discharge: Cognitive status at discharge: cognitively intact , Behavioral status at discharge: cooperative , Functional status at discharge: independent ambulation Overall status at discharge: patient is progressing back to baseline Quality Metrics Clinical Quality Measures During this hospital stay, did patient experience: None Coding Level of Care Code Acute Chg DC note Diagnoses Status post laparoscopic sleeve gastrectomy Z98.84
--- NOTE | 2021-01-17 09:29 | P.PN_ITS ---
Subjective Subjective: Interval history: Patient feels a whole lot better and her pain under better control. Adequate urine output, had a small bowel movement yesterday and continues to pass gas. Calcium was replaced. No evidence of fevers. Serosanguineous output per left-sided drain. Tolerating p.o. intake without difficulty, nausea controlled by scopolamine patch and Zofran. Denies right sided torso pain and responding to Flexeril. Vitals/I&O/Wt Last Vital Signs Temp 98.5 F 01/17/21 07:54 Pulse 89 01/17/21 07:54 Resp 18 01/17/21 07:54 BP 126/82 01/17/21 07:54 Pulse Ox 95 01/17/21 07:54 01/16/21 01/17/21 01/17/21 22:59 06:59 14:59 Intake Total 480 / 1350 70 / 1420 150 / 150 Output Total 100 / 250 Balance 380 / 1100 70 / 1170 150 / 150 Physical Exam Narrative: EXAM NARRATIVE: Patient is conscious alert oriented X3 BMI 33.3 Head and neck examination PERRLA no masses no cervical lymphadenopathy no jaundice Cardiac examination audible S1-S2 no murmurs no gallops no arrhythmias Chest is clear bilateral,abscence of Rhonchi or wheezes,no surgical emphysema Abdomen nontender nondistended soft no organomegaly guarding or rigidity/no signs of peritonitis, incisions are clean dry and intact and skin cb in pl [place] with minor ecchymosis at the incision sites. Left upper sided abdominal drain in place with serosanguineous output. Extremities no cyanosis no clubbing no edema Urinary Catheter Management^: Morrow: Cath Placed During This Visit: yes, but has since been removed by the nurse Reason for Continuing Indwelling Catheter: Decision to DC Catheter Urinary Catheter Date of Insertion: 01/13/21 Urinary Catheter Time of Insertion: 13:50 Date Urinary Catheter Removed: 01/14/21 Time Urinary Catheter Discontinued: 13:30 Data : 01/16/21 05:33 01/17/21 06:38 A&P Assessment and plan (1) Status post laparoscopic sleeve gastrectomy: Status post laparoscopic sleeve gastrectomy with gastrogastrostomy 01/13/2021. Patient has been doing appropriately well and tolerating p.o. intake. We will plan to discharge home today. Drain teaching and education Continue calcium replacement at home Levaquin upon discharge Education about the importance of incentive spirometer every hour while awake upon discharge Follow nutrition guidelines status post laparoscopic sleeve gastrectomy Return to bariatric surgery office in 1 week. Assurance and education All questions have been answered and all concerns have been addressed to patient's satisfaction. Status: Resolved Attestations Medical Necessity Statement*: Patient required inpatient hospitalization passing 2 midnights, for correction and for awaiting bowel functions. Time Spent in Patient Care: (>than 50% of time spent in counselling and/or direct pt care on unit) . Coding Level of Care Code Acute Gaming Associate for Chg Fwd Diagnoses Status post laparoscopic sleeve gastrectomy Z98.84
[2021-01-17] MEDS: pantoprazole 40 mg SDV IVP (09:32)
[2021-01-17] MEDS: psyllium powder Pkt 1 PACKET PO (10:27)
[2021-01-17 11:09] VITALS: BP 135/88; PULSE 80; RESP 18; TEMP 37.3; O2SAT 96
[2021-01-17 15:34] VITALS: BP 135/88; PULSE 80; RESP 18; TEMP 37.3; O2SAT 96
== END 2021-01-17 12:57 | disposition home or self-care (01) | DRG 619 ==
LOC: MEDSURG 18:31
PROVIDERS: Admitting Provider Surgery; PCP Family Medicine; Visit Provider Surgery
PROC: 0DB64Z3 Excision of Stomach, Percutaneous Endoscopic Approach, Vertical (ICD-10-PCS; CPT 43775; principal; 2021-01-13 10:05)
PROC: 0DJ08ZZ Inspection of Upper Intestinal Tract, Via Natural or Artificial Opening Endoscopic (ICD-10-PCS; CPT 43235; 2021-01-13 10:05)
DX: E66.9 Obesity, unspecified (principal); J18.9 Pneumonia, unspecified organism; Z68.33 Body mass index [BMI] 33.0-33.9, adult; E83.51 Hypocalcemia; Z87.891 Personal history of nicotine dependence; F32.9 Major depressive disorder, single episode, unspecified; G47.00 Insomnia, unspecified; M54.17 Radiculopathy, lumbosacral region; M77.8 Other enthesopathies, not elsewhere classified
CPT/HCPCS: 36415; 51702; 71045; 74240; 80048; 81003; 85014; 85018; 88309; 96365; 96372; C9113; C9290; J0610; J1100; J1170; J1644; J1956; J2250; J2270; J2405; J2550; J2704; J2765; J3010; J3490; J7030; Q9963

== ENCOUNTER → 2021-01-26 07:31 | Outpatient (BNVA) | payer MEDICAID, SELFPAY | PROVIDERS: PCP Family Medicine; Visit Provider Nurse Practitioner Psychiatric/Mental Health | DX: F41.9 Anxiety disorder, unspecified (principal); Z98.84 Bariatric surgery status; F43.12 Post-traumatic stress disorder, chronic | CPT/HCPCS: 99212 ==

== ENCOUNTER 2021-01-26 10:44 | Outpatient (CLI) | payer MEDICAID, SELFPAY ==
--- NOTE | 2021-01-26 11:06 | FL_ITS ---
WS: [id number] [place] upper GI gastrografin [id number] REASON FOR EXAM: R13.10 - Dysphagia, unspecified FLUOROSCOPY TIME: .9 minutes FINDINGS: Patient had a great deal of difficulty with swallowing the Gastrografin with heaving and some vomitin g of a portion of the volume that was ingested. Observation under fluoroscopy did not demonstrate con trast passing into the more distal stomach and duodenum as on the previous examination however the pa tient simply cannot tolerate any further drinking of the Gastrografin at this point and aspiration of Gastrografin can be a significant problem. The follow-up images suggest that there is some passage of gas and possibly some contrast more distal ly. The findings were discussed with the referring surgeon. The main problem is the patient's inability t o ingest a sufficient amount of positive contrast for better evaluation. A CT scan of the abdomen is being ordered to see if can identify contrast more distally. CT should be sensitive to small amounts of contrast and air of the past through the strict sleeve. FL/FL upper GI gastrografin [id number] IMPRESSION: Difficulty with the oral contrast leading to nondiagnostic examination. Follow- up CT scan to be obtained and further imaging based on the findings on that exa mination.
== END 2021-01-26 10:45 | disposition home or self-care (01) ==
PROVIDERS: PCP Nurse Practitioner Family; Visit Provider Surgery
DX: R13.10 Dysphagia, unspecified (principal)
CPT/HCPCS: 74240

== ENCOUNTER 2021-01-26 14:47 | Inpatient (IN) | payer MEDICAID, SELFPAY ==
[2021-01-26] MEDS: lactated ringers 1,000 ML 999 ML IV (13:47)
[2021-01-26] MEDS: pantoprazole 40 mg SDV IVP ×2 (13:53→20:57)
--- NOTE | 2021-01-26 14:03 | CT_ITS ---
WS: [id number] CT ABDOMEN TECHNIQUE: Noncontrast CT of the abdomen with coronal and sagittal reformatted images. CLINICAL INFORMATION: dysphagia COMPARISON: CT 11 24,017 DLP: 2866.[address] scans at [facility] use at least one of these dose optimization techniques: automat ed exposure control; mA and/or kV adjustment per patient size (includes targeted exams where dose is matched to clinical indication); or iterative reconstruction. FINDINGS: Surgical drain in the upper abdomen. Recent postoperative changes gastric sleeve procedure. Moderate diffuse wall thickening involving the stomach consistent with recent postoperative changes. No eviden ce of contrast leak. The majority of the contrast is confined to the stomach extending into the pylor us. No significant passage of contrast into the duodenal C-loop. No significant contrast within the j ejunal bowel loops in the left upper quadrant. Residual contrast in colon from prior upper GI. Modera te luminal narrowing in the mid and distal stomach mainly due to gastric wall thickening. Mild diffuse edema involving the pancreatic body and tail may be due to postoperative changes but rec ommend correlation with pancreatic enzymes and pancreatitis. Noncontrast liver is normal. Normal nonc ontrast gallbladder. Bibasilar atelectasis. Adrenal glands are normal. No hydronephrosis in either kidney. Normal caliber abdominal aorta. CT/CT abdomen wo con [id number] IMPRESSION: 1. Recent postoperative changes gastric sleeve procedure. Recent contrast yomi stion appears confined to the stomach extending into the distal stomach. No sig nificant contrast in the duodenal C-loop or jejunal bowel loops. 2. Residual contrast from prior upper GI within the colon and ileal bowel loop s. 3. Diffuse wall thickening and edema involving the stomach presumably due to r ecent postoperative changes. Luminal narrowing in the mid and distal stomach wh ich appears to be mainly due to gastric wall edema. No evidence for contrast le ak. 4. Moderate diffuse edema involving the pancreas with peripancreatic inflammat ory changes. Recommend correlation with pancreatic enzymes and pancreatitis. 5. Bibasilar atelectasis. 6. Surgical drain in the upper abdomen.
[2021-01-26 14:10] LABS: Hematocrit 38.1 % (37.0-47.0); Hemoglobin 12.5 g/dL (11.5-15.3)
[2021-01-26 14:19] VITALS: BP 113/67; PULSE 89; RESP 18; TEMP 36.3; O2SAT 98
--- NOTE | 2021-01-26 14:37 | PC.NURSE ---
Pt to GI lab for hydration. Pt received 1 liter LR without difficulty to right AC IV site. Labs drawn (Hg and Hct as well as BMP) as requested per Dr. Becker. Pt to be admitted as observation overnight due to dysphagia and dehydration. Dr. Becker at bedside earlier and discussed plan of care with pt. Pt to have CT of abdomen without contrast. CT to work patient in when spot becomes available. Pt to be transferred to Med-surg room 259-1.
[2021-01-26 14:38] LABS: Anion Gap 19.5 (5-19); Blood Urea Nitrogen 17 mg/dL (6-20); Calcium 9.3 mg/dL (8.5-10.5); Carbon Dioxide 23 mmol/L (22-29); Chloride 104 mmol/L (98-107); Glomerular Filtration Rate 88.9 mL/min (90-130); Glucose 138 mg/dL (65-115); Osmolality Calculated 298 mOsm/kg (285-295); Potassium 4.5 mmol/L (3.5-5.1); Sodium 142 mmol/L (136-145)
--- NOTE | 2021-01-26 15:01 | PC.NURSE ---
Pt to CT scan via wheelchair. Report called to Jojo ([email or web address]) RN on med-surg.
[2021-01-26] MEDS: barium sulfate 450 mL Oral Susp PO (15:10)
--- NOTE | 2021-01-26 15:14 | PM.HP ---
Providers/Chief Complaint Admitting Physician: James Becker MD Primary Care Provider: DIXIE Skelton Chief Complaint: hydration History of Present Illness Chief Complaint: I cannot keep things down History of present illness: Ms. Kesha Torre is a pleasant 50 year old female undergone a laparoscopic vertical sleeve gastrectomy, with gastrogastrostomy and intra-abdominal drain placement 01/13/2021. Patient undergone an upper GI study postoperatively that showed.The Gastrografin proceeded through the esophagus and into the stomach. The stomach showed no extravasation. The gastric sleeve was intact. 01/14/2021 Patient was discharged home safely with specific instructions and education with regard to her education and phases of nutrition status post gastric sleeve. Was seen in my office last and she has been doing well except that she has been sore and a refill of her [place] prescription was done with the plan to follow-up with me in a week to discontinue the drain that has been draining serous output, when the patient was seen back in the office she was tolerating p.o. intake and over the last week and she had last Tuesday particularly in the evening time chicken jamaicae as her ex- offered that to her, there after she started to have repeated nausea and vomiting and she was not able to keep things down. And eventually today she contacted my office and I was able to have the patient come to the hospital to evaluate her by obtaining an upper GI study, yet unfortunately patient was not able to keep contrast down and she was vomiting so the study showed difficulty with the oral contrast leading to nondiagnostic examination. Follow-up CT scan to be obtained and further imaging based on the findings on that examination. Eventually patient was brought to the GI lab for a bolus of IV fluids and 40 mg of IV Protonix with the plan to have her admitted as an observation to my service and a CT scan to be obtained. Otherwise patient denies any fevers or chills and maintaining to have adequate urine output. She is able to tolerate ice chips without difficulty. Repeat labs today showed a hemoglobin of 12.5 and hematocrit of 38.1, sodium 142, potassium 4.5 chloride 104 with anion gap of 19.5 and creatinine of 0.7 and blood urea nitrogen of 17. A CT scan of the abdomen following the upper GI study that showed; 1. Recent postoperative changes gastric sleeve procedure. Recent contrast ingestion appears confined to the stomach extending into the distal stomach. No significant contrast in the duodenal C-loop or jejunal bowel loops. 2. Residual contrast from prior upper GI within the colon and ileal bowel loops. 3. Diffuse wall thickening and edema involving the stomach presumably due to recent postoperative changes. Luminal narrowing in the mid and distal stomach which appears to be mainly due to gastric wall edema. No evidence for contrast leak. 4. Moderate diffuse edema involving the pancreas with peripancreatic inflammatory changes. Recommend correlation with pancreatic enzymes and pancreatitis. 5. Bibasilar atelectasis. 6. Surgical drain in the upper abdomen. Review of Systems General: Reports: 10 or more systems reviewed and unremarkable except in HPI and below Medications/Allergies Home Medications Medication Instructions Recorded Confirmed Last Taken Type carboxymethylcellulose sodium 1 % 1 drop OPHTHALMIC (EYE) BID 07/20/19 01/26/21 01/05/21 History eye liquid gel drops latanoprost 0.005 % eye drops 1 drop OPHTHALMIC (EYE) QDAY 07/20/19 01/26/21 01/25/21 History hydroxyzine pamoate 50 mg capsule 50 mg PO BID PRN #60 cap 12/30/20 01/26/21 01/25/21 Rx sertraline 100 mg tablet 100 mg PO DAILY #30 tab 12/30/20 01/26/21 01/25/21 Rx cyclobenzaprine 10 mg PO BID PRN #20 tab 01/17/21 01/26/21 01/25/21 Rx ondansetron HCl [Zofran] 4 mg PO Q8H PRN 20 Days #60 tab 01/17/21 01/26/21 01/25/21 Rx pantoprazole [Protonix] 40 mg PO DAILY 30 Days #30 tab 01/17/21 01/26/21 01/25/21 Rx scopolamine base [Transderm-Scop] 1 patch TRANSDERMAL Q3D PRN #4 ea 01/17/21 01/26/21 01/26/21 Rx hydrocodone 5 mg-acetaminophen 325 1 tab PO Q6H PRN 7 Days #28 tab 01/22/21 01/26/21 01/25/21 Rx mg tablet Allergies Allergy/AdvReac Type Severity Reaction Status Date / Time adhesive tape Allergy knots Verified 01/23/21 16:19 gabapentin [From Neurontin] Allergy loses Verified 01/23/21 16:19 feeling in legs PFSH Acute PFSH: Medical History (Updated 01/26/21 @ 16:20 by James Becker MD) Bone spur of acromioclavicular joint Brain aneurysm Chronic post-traumatic stress disorder (PTSD) Depression Insomnia, persistent Intervertebral disc disorders with radiculopathy, lumbosacral region Obesity Right shoulder pain Strain of right shoulder Surgical History H/O: hysterectomy History of colonoscopy History of esophagogastroduodenoscopy (EGD) S/P appendectomy S/P cataract surgery S/P craniotomy S/P D&C (status post dilation and curettage) S/P tonsillectomy and adenoidectomy Status post laparoscopic sleeve gastrectomy Family History Mother Bleeding disorder Anesthesia complication Other CAD (coronary artery disease) Cancer Diabetes Hyperlipidemia Hypertension Stroke Suicide Social History Alcohol intake: never Female Reproductive History: Date of last menstrual period: 03/18/99 Vitals/I&O/Wt Last Vital Signs Temp 97.4 F L 01/26/21 14:19 Pulse 89 01/26/21 14:19 Resp 18 01/26/21 14:19 BP 113/67 01/26/21 14:19 Pulse Ox 98 01/26/21 14:19 01/26/21 01/26/21 01/26/21 06:59 14:59 22:59 Intake Total 1000 / 1000 Balance 1000 / 1000 Weight last 48 hrs Weight 192 lb Physical Exam Narrative: EXAM NARRATIVE: Patient is conscious alert oriented X3 BMI 32 Head and neck examination PERRLA no masses no cervical lymphadenopathy no jaundice Cardiac examination audible S1-S2 no murmurs no gallops no arrhythmias Chest is clear bilateral,abscence of Rhonchi or wheezes,no surgical emphysema Abdomen nontender except slightly at the drain site in the epigastric area, otherwise nondistended soft no organomegaly guarding or rigidity/no signs of peritonitis Left-sided drain in place without complications and shows serous output Extremities no cyanosis no clubbing no edema Data : 01/26/21 13:39 01/26/21 13:39 A&P Assessment and plan (1) Nausea and vomiting: Patient is a status post laparoscopic vertical sleeve gastrectomy 01/13/2021 developed repeated nausea and vomiting with signs of dehydration. IV fluid resuscitation Repeat labs in the morning including amylase and lipase Repeated physical examination equipment monitor phototypesetting Ice chips for now otherwise n.p.o. Strict I's and O's Pharmacologic DVT prophylaxis Assurance and education All questions have been answered and all concerns have been addressed to patient's satisfaction. Status: Acute Attestations Medical Necessity Statement*: Patient will be for observation status for IV fluid resuscitation and repeated physical examination Time Spent in Patient Care: Greater than 35 minutes (>than 50% of time spent in counselling and/or direct pt care on unit). Coding Level of Care Code Acute Commutator Operator for Yahir Eng Diagnoses Nausea and vomiting R11.2
[2021-01-26 15:24] VITALS: BP 119/79; PULSE 81; RESP 18; TEMP 36.7; O2SAT 97
[2021-01-26] MEDS: sodium chloride 0.9% 1,000 ML 125 ML IV (15:57)
[2021-01-26] MEDS: morphine 4 mg/mL SDV 1 mL 2 MG IVP ×2 (15:57→21:07)
[2021-01-26 20:00] VITALS: BP 93/62; PULSE 84; RESP 18; TEMP 37.2; O2SAT 96
[2021-01-26 21:07] VITALS: RESP 16
[2021-01-26 23:43] VITALS: BP 92/59; PULSE 82; RESP 18; TEMP 37.4; O2SAT 96
[2021-01-26 23:56] VITALS: PULSE 82
[2021-01-27] VITALS (12 sets, daily range): BP systolic 99–120; BP diastolic 67–80; PULSE 67–82; RESP 14–18; TEMP 36.6–37; O2SAT 92–98
[2021-01-27] MEDS: sodium chloride 0.9% 1,000 ML 125 ML IV ×3 (00:01→17:22)
[2021-01-27] MEDS: morphine 4 mg/mL SDV 1 mL 2 MG IVP ×4 (03:20→21:48)
--- NOTE | 2021-01-27 05:55 | PM.PN ---
Subjective Subjective: Interval history: Patient was seen and examined. Overall feels better and denies nausea or vomiting just sore at the infraumbilical area. 550 mL of urine output. Patient denies alcohol ingestion over the weekend when I asked her. Medications: Reviewed: Yes Vitals/I&O/Wt Last Vital Signs Temp 97.9 F 01/27/21 03:55 Pulse 80 01/27/21 03:55 Resp 18 01/27/21 03:55 BP 99/67 01/27/21 03:55 Pulse Ox 97 01/27/21 03:55 01/26/21 01/26/21 01/27/21 14:59 22:59 06:59 Intake Total 1000 / 1000 120 / 1120 1120 / 2240 Output Total 250 / 250 300 / 550 Balance 1000 / 1000 -130 / 870 820 / 1690 Weight last 48 hrs Weight 192 lb Physical Exam Narrative: EXAM NARRATIVE: Patient is conscious alert oriented X3 BMI 32 Head and neck examination PERRLA no masses no cervical lymphadenopathy no jaundice Cardiac examination audible S1-S2 no murmurs no gallops no arrhythmias Chest is clear bilateral,abscence of Rhonchi or wheezes,no surgical emphysema Abdomen nontender except mildly at the infraumbilical area nondistended soft no organomegaly guarding or rigidity/no signs of peritonitis. Drain in place with minimal fluid serous output Extremities no cyanosis no clubbing no edema Data : 01/26/21 13:39 01/26/21 13:39 A&P Assessment and plan (1) Nausea and vomiting: Patient is a status post laparoscopic vertical sleeve gastrectomy 01/13/2021 developed repeated nausea and vomiting with signs of dehydration. IV fluid resuscitation We will add a bolus of normal saline 500 mL stat We will follow on a.m. labs Repeated physical examination child development consultant Ice chips for now otherwise n.p.o. Strict I's and O's Continue pharmacologic DVT prophylaxis Assurance and education All questions have been answered and all concerns have been addressed to patient's satisfaction. Status: Acute (2) Pancreatitis: We will add lipid profile Ultrasound of the liver and gallbladder to rule out potential biliary pancreatitis IV fluid resuscitation We will send amylase from the drain to correlate with the serum amylase level Status: Acute Attestations Medical Necessity Statement*: Patient will be for observation status for IV fluid resuscitation and repeated physical examination Time Spent in Patient Care: Greater than 35 minutes (>than 50% of time spent in counselling and/or direct pt care on unit). Coding Level of Care Code Acute Elevators Inspector for Chg Fwd Diagnoses Nausea and vomiting R11.2 Pancreatitis K85.90
[2021-01-27] MEDS: enoxaparin 40 mg/0.4 mL Syringe SUBCUT (06:05)
[2021-01-27] MEDS: sodium chloride 0.9% 500 ML 999 ML IV (06:11)
--- NOTE | 2021-01-27 06:14 | US_ITS ---
WS: [id number] ULTRASOUND ABDOMEN LIMITED CLINICAL INFORMATION: Rule out gallbladder stones COMPARISON: None. FINDINGS: Technically difficult examination due to recent gastric sleeve surgery. Liver Size: Enlarged Craniocaudal length: 18.1 cm. Echogenicity: Normal. Surface nodularity: None. Mass (size and location): None. Bile ducts Intrahepatic ducts: Normal. Common bile duct diameter: 0.4 cm. Gallbladder Normal. Gallstones: None. Gallbladder sludge: None. Gallbladder wall thickening: None. Pericholecystic fluid: None. Sonographic Sarabia sign: Absent. Pancreas Not well seen Right kidney: Normal. Hydronephrosis: None. Size: 10.0 cm x 4.5 cm x 4.4 cm. Abdominal aorta and IVC Visualized portions are normal. Ascites: None. US/US gall bladder [id number] IMPRESSION: Technically difficult examination. 1. Mild hepatomegaly. No intrahepatic biliary ductal dilatation. 2. Normal gallbladder. No cholelithiasis. Normal common bile duct. 3. No hydronephrosis in right kidney.
[2021-01-27 06:37] LABS: Hematocrit 31.5 % (37.0-47.0)
[2021-01-27 06:54] LABS: Amylase 30 U/L (28-100); Anion Gap 14.9 (5-19); Blood Urea Nitrogen 12 mg/dL (6-20); Carbon Dioxide 24 mmol/L (22-29); Chloride 106 mmol/L (98-107); Cholesterol 156 mg/dL (0-200); Glomerular Filtration Rate 106.3 mL/min (90-130); Glucose 87 mg/dL (65-115); HDL Cholesterol 26 mg/dL (60-100); LDL Cholesterol Calculated 105 mg/dL (50-129); Lipase 16 U/L (13-60); Osmolality Calculated 291 mOsm/kg (285-295); Potassium 3.9 mmol/L (3.5-5.1); Sodium 141 mmol/L (136-145); Triglycerides 123 mg/dL (0-150); VLDL Cholestrol Calculation 25 mg/dL (0-30)
[2021-01-27 06:55] LABS: Alanine Aminotransferase 13 U/L (0-33); Albumin Level 3.2 g/dL (3.5-5.2); Alkaline Phosphatase 62 IU/L (35-105); Aspartate Amino Transferase 13 U/L (0-32); Globulin 2.3 g/dL (1.3-4.6); Total Bilirubin 0.2 mg/dL (0.15-1.2); Total Protein 5.5 g/dL (6.6-8.7)
--- NOTE | 2021-01-27 06:55 | PC.NURSE ---
Shift Summary Patient rested well throughout the night. Patient did require pain medication x2 for abdominal pain. Patient currently resting comfortably in bed.
[2021-01-27] MEDS: pantoprazole 40 mg SDV IVP ×2 (07:57→21:49)
[2021-01-27 08:50] LABS: Amylase Peritoneal Fluid 20 U/L (88-109)
--- NOTE | 2021-01-27 10:18 | PC.CHAP ---
Pastoral Care Encounter/Spiritual Assessment Type of Contact [] Declined medical research associate visit [] Patient/Family/Request visit [] Outpatient visit [] Follow-up visit [] Physician referral [] Code/Alert [x] Routine visit [] Staff referral [] Actively dying [] Patient sleeping [] Family support [] [] Out of room [] Palliative care [] [] Receiving care in room [] Pre-surgical visit [] Trauma [] Long length of stay [] ICU visit [] Other: Relational/Emotional Strength [] Patient feels connected with others/family/visitors/staff [] Distress [] Loneliness/isolation [] Abandonment Spirituality of Patient [x] Person of Nory [] Attends Presybeterian of their Nory [] Believes in Prayer [] Reads Bible or Uatsdin materials [] There are Spiritual issues to be addressed Forger Helper Interventions x[] Prayer [x] Active listening [x] Non-anxious presence [] Spiritual/emotional support [] Crisis/trauma care [] Spiritual counseling [] Bereavement support [] Provided bereavement packet [] Provided Bible/devotional materials [] Provided toy/stuffed animal, coloring book to patient or family member [] Provided Communion [] Anointing/[place] [] Salvation [x] Completed spiritual assessment [] Other: Impact on Illness or Injury [] Angry [] Fearful [] Anxious [] Often cries [] Exhaustion [] Unable to work [] Unable to attend sabianism [] Unable to walk/stand [] Unable to read [] Unable to drive [] Unable to eat/drink [] Unable to sleep [] Unable to be with family [] Patient intubated [] Other: Summary Time spent with patient 10 min
[2021-01-27] MEDS: metoclopramide 5 mg/mL SDV 2 mL 10 MG IVP ×2 (17:24→21:47)
[2021-01-28] VITALS (11 sets, daily range): BP systolic 104–133; BP diastolic 58–84; PULSE 69–89; RESP 16–18; TEMP 36.7–37.2; O2SAT 95–98
[2021-01-28] MEDS: sodium chloride 0.9% 1,000 ML 125 ML IV (03:19)
[2021-01-28] MEDS: morphine 4 mg/mL SDV 1 mL 2 MG IVP (04:50)
[2021-01-28] MEDS: enoxaparin 40 mg/0.4 mL Syringe SUBCUT (05:07)
--- NOTE | 2021-01-28 06:36 | PM.PN ---
Subjective Subjective: Interval history: Patient was seen and examined in the presence of nursing staff Karishma. Overall patient has been tolerating p.o. intake over the past shift has been having good urine output and stable vital signs. Complains of headache and she feels less tender in her periumbilical area. Adequate urine output but did not have a bowel movement yet. Serum lipase and amylase were normal and peritoneal fluid check from the drain was 20 and was below normal. Patient reports to the nursing staff Karishma that she had fried chicken over the last week and and there is unclear history if the patient had alcohol AT the same time. Vitals/I&O/Wt Last Vital Signs Temp 98.5 F 01/28/21 05:00 Pulse 69 01/28/21 05:00 Resp 18 01/28/21 05:00 BP 114/75 01/28/21 05:00 Pulse Ox 97 01/28/21 05:00 01/27/21 01/27/21 01/28/21 14:59 22:59 06:59 Intake Total 1559.583 / 2435.757 9509 / 2559.583 1240 / 3799.583 Output Total 200 / 200 550 / 750 500 / 1250 Balance 1359.583 / 1359.583 450 / 1809.583 740 / 2549.583 Weight last 48 hrs Weight 192 lb Physical Exam Narrative: EXAM NARRATIVE: Patient is conscious alert oriented X3 BMI 32 Head and neck examination PERRLA no masses no cervical lymphadenopathy no jaundice Cardiac examination audible S1-S2 no murmurs no gallops no arrhythmias Chest is clear bilateral,abscence of Rhonchi or wheezes,no surgical emphysema Abdomen nontender except mildly on the infraumbilical area nondistended soft no organomegaly guarding or rigidity/no signs of peritonitis Left upper sided drain in place with serous output reported 30 mL output Extremities no cyanosis no clubbing no edema Data : 01/28/21 05:33 01/28/21 05:33 Attestation for Other Data: I personally reviewed and interpreted the following: (No evidence of cholecystitis or gallbladder stones on the ultrasound) Other data: Ultrasound findings of the gallbladder. 1. Mild hepatomegaly. No intrahepatic biliary ductal dilatation. 2. Normal gallbladder. No cholelithiasis. Normal common bile duct. 3. No hydronephrosis in right kidney. A&P Assessment and plan (1) Nausea and vomiting: Patient is a status post laparoscopic vertical sleeve gastrectomy 01/13/2021 developed repeated nausea and vomiting with signs of dehydration. Continue clear liquid diet We will switch fluids to D5 with half-normal saline +20 KCl at 75 We will follow on a.m. labs Repeated physical examination Continue property assessment monitor Strict I's and O's Continue pharmacologic DVT prophylaxis Parenteral replacement of low calcium Assurance and education All questions have been answered and all concerns have been addressed to patient's satisfaction. Status: Acute (2) Pancreatitis: Clear liquid Repeated physical examination Status: Acute Attestations Medical Necessity Statement*: Patient requiring admission as an inpatient passing 2 midnights for IV fluid resuscitation and replacement of electrolytes Time Spent in Patient Care: (>than 50% of time spent in counselling and/or direct pt care on unit). Coding Level of Care Code Acute Alberene Stone Setter for Yahir Eng Diagnoses Nausea and vomiting R11.2 Pancreatitis K85.90
[2021-01-28] MEDS: D5-NS 0.45% + KCL 20 mEq 20 MEQ/1,000 ML BAG 75 MEQ IV ×2 (07:06→21:15)
[2021-01-28] MEDS: glycerin adult supp 1 EACH PR (07:08)
[2021-01-28 07:11] LABS: Hematocrit 32.6 % (37.0-47.0); Hemoglobin 10.4 g/dL (11.5-15.3)
[2021-01-28 07:31] LABS: Anion Gap 13.7 (5-19); Blood Urea Nitrogen 7 mg/dL (6-20); Calcium 8.2 mg/dL (8.5-10.5); Carbon Dioxide 25 mmol/L (22-29); Chloride 103 mmol/L (98-107); Creatinine Clr Calc Pharmacy 148.3315; Glomerular Filtration Rate 131.1 mL/min (90-130); Glucose 80 mg/dL (65-115); Osmolality Calculated 283 mOsm/kg (285-295); Potassium 3.7 mmol/L (3.5-5.1); Sodium 138 mmol/L (136-145)
--- NOTE | 2021-01-28 07:34 | PC.NURSE ---
Clear Diet, Reglan available if needed, pt received a glycerin suppository for constipation. Fluids changed from NS at 100 rate, to D5+kcl20 at a rate of 75ml/hr. Physician notified of pt headache, pain medication is changed from Morphine. He will provide order for oxycodone for further pain control. Physician told pt to ambulate, he wants her up out of bed. She is able to ambulate, use the bathroom on her own, gait is steady. she is resting at this time
[2021-01-28] MEDS: pantoprazole 40 mg SDV IVP ×2 (09:47→21:07)
[2021-01-28] MEDS: HYDROcodone-acetaminophen 5-325 mg Tablet 1 TAB PO ×2 (09:48→19:52)
--- NOTE | 2021-01-28 10:29 | PC.NUTR ---
Nutrition note: Have modified clear liquid diet per Dr. Becker request to reflect bariatric protocol.
[2021-01-28] MEDS: metoclopramide 5 mg/mL SDV 2 mL 10 MG IVP (17:05)
[2021-01-29 03:50] VITALS: BP 110/74; PULSE 83; RESP 16; TEMP 36.7; O2SAT 95
[2021-01-29] MEDS: enoxaparin 40 mg/0.4 mL Syringe SUBCUT (05:19)
[2021-01-29 05:33] LABS: Hematocrit 33.8 % (37.0-47.0); Hemoglobin 11.1 g/dL (11.5-15.3)
[2021-01-29 05:52] LABS: Anion Gap 13.7 (5-19); Blood Urea Nitrogen 5 mg/dL (6-20); Calcium 8.5 mg/dL (8.5-10.5); Carbon Dioxide 25 mmol/L (22-29); Chloride 102 mmol/L (98-107); Creatinine Clr Calc Pharmacy 148.3315; Glomerular Filtration Rate 131.1 mL/min (90-130); Glucose 134 mg/dL (65-115); Osmolality Calculated 283 mOsm/kg (285-295); Potassium 3.7 mmol/L (3.5-5.1); Sodium 137 mmol/L (136-145)
[2021-01-29 06:00] VITALS: PULSE 79
--- NOTE | 2021-01-29 06:34 | PC.NURSE ---
SHIFT SUMMARY Has rested well tonight. Received one dose of Hydrocodone po for abd pain in the evening and nothing since. 40ml total from MONI drain. Drainage serous in color. Has had no c/o nausea with clear liquid diet. Voiding well. Says she feels much better. Dr Bui in this am and wants to try pt off IV fluids and make sure she can urinate well and be able to tolerate liquids before discharges possibly later today. Pt is anxious to go home. IV converted to PIID
[2021-01-29] MEDS: HYDROcodone-acetaminophen 5-325 mg Tablet 1 TAB PO (07:41)
[2021-01-29] MEDS: pantoprazole 40 mg SDV IVP (07:41)
[2021-01-29 08:00] VITALS: BP 112/74; PULSE 81; RESP 16; TEMP 37.3; O2SAT 96
[2021-01-29 11:36] VITALS: BP 132/68; PULSE 83; RESP 16; TEMP 37.2; O2SAT 96
--- NOTE | 2021-01-29 11:59 | P.DS_ITS ---
Discharge Providers Date of Admission: 01/27/21 05:55 Date of Discharge: January 29, 2021 Attending Provider at Admission: James Becker MD Attending Provider at Discharge: James Becker MD Primary Care Provider: DIXIE Skelton Diagnoses at Discharge Discharge Diagnosis (1) Nausea and vomiting: Status: Resolved (2) Pancreatitis: Status: Resolved Reason for Visit Reason for Visit: hydration Hospital Course Hospital Course This is a pleasant 50 years old female patient status post laparoscopic vertical sleeve gastrectomy with gastrogastrostomy and placement of intra-abdominal drain. 01/14/2021. Patient was discharged after she has been tolerating well p.o. intake and the upper GI study was appropriate. Was seen at my office last and she maintained to be doing well and compliant with her post bariatr ic surgery instructions, unfortunately Tuesday evening she did have some grilled chicken or fried chicken its not clear and she did go out with one of her friends and likely she got so dehydrated and sick to her stomach. And started to have repetitive nausea and vomiting over the weekend that started Tuesday and got worse by Tuesday. Patient was sent for an attempt of an upper GI study but because of her nausea and vomiting the study was not completed and was aborted. I elected at this point to have the patient for direct admission for appropriate IV fluid resuscitation with blood work and a CT scan without contrast of the abdomen was done following the attempt of the upper GI study that showed; 1. Recent postoperative changes gastric sleeve procedure. Recent contrast ingestion appears confined to the stomach extending into the distal stomach. No significant contrast in the duodenal C-loop or jejunal bowel loops. 2. Residual contrast from prior upper GI within the colon and ileal bowel loops. 3. Diffuse wall thickening and edema involving the stomach presumably due to recent postoperative changes. Luminal narrowing in the mid and distal stomach which appears to be mainly due to gastric wall edema. No evidence for contrast leak. 4. Moderate diffuse edema involving the pancreas with peripancreatic inflammatory changes. Recommend correlation with pancreatic enzymes and pancreatitis. 5. Bibasilar atelectasis. 6. Surgical drain in the upper abdomen. Because of the concern of potential pancreatitis I elected to send for lipid profile that was not impressive also an ultrasound of the gallbladder that was reported as normal except for fatty liver in addition patient did deny any alcohol ingestion over the weekend. Patient maintained to be in n.p.o. status with IV fluid resuscitation and blood work showed hypocalcemia that required IV replacement and antinausea medications were implemented as well. Overall had appropriate hospital course and was started slowly on clear liquid diet that tolerated that well then started to take bigger portions and at that time the IV fluids were switched from normal saline as a resuscitating fluid to maintenance fluid D5 and half-normal +20 KCl, patient demonstrated over the past 24 hours or so appropriate response to fluid resuscitation and tolerated p.o. intake. Because of history of constipation I elected to add glycerin suppository the patient did not respond to that but milk and molasses enema was administered by the nursing staff and patient had 2 large bowel movements. Overall she felt better and her migraine was causing some nausea as well that responded to conservative measures. As patient continued to tolerate p.o. intake, she met the appropriate and safe criteria for discharge home. The plan to follow-up with me this coming Tuesday at the office to discontinue the drain. Physical Exam Narrative: EXAM NARRATIVE: Patient is conscious alert oriented X3 BMI 32 Head and neck examination PERRLA no masses no cervical lymphadenopathy no jaundice Cardiac examination audible S1-S2 no murmurs no gallops no arrhythmias Chest is clear bilateral,abscence of Rhonchi or wheezes,no surgical emphysema Abdomen nontender, nondistended soft no organomegaly guarding or rigidity/no signs of peritonitis Left upper sided drain in place with serous output Extremities no cyanosis no clubbing no edema Discharge Data Data Completed and Pending: Completed Studies During Hospitalization Category Date Time Status CT abdomen wo con [id number] Stat Cat Scan 01/26/21 14:03 Completed US gall bladder 7 [id number] Routine Ultrasound 01/27/21 06:14 Completed Labs from last 24 hours 01/29/21 01/29/21 05:12 05:12 Hgb 11.1 L Hct 33.8 L Sodium 137 Potassium 3.7 Chloride 102 Carbon Dioxide 25 Anion Gap 13.7 BUN 5 L Creatinine 0.5 GFR Calculation 131.1 H Glucose 134 H Calculated Osmolal ity 283 L Calcium 8.5 Vitals: Last Vital Signs Temp 99.0 F 01/29/21 11:36 Pulse 83 01/29/21 11:36 Resp 16 01/29/21 11:36 BP 132/68 01/29/21 11:36 Pulse Ox 96 01/29/21 11:36 Discharge Plan Discharge Patient Disposition: Home Condition: Stable Prescriptions: Continued latanoprost 0.005 % drops 1 drop ophthalmic (eye) QDAY RF: 0 Refresh Liquigel 1 % drops, liquid gel 1 drop ophthalmic (eye) BID RF: 0 hydrocodone-acetaminophen 5-325 mg tablet 1 tab PO Q6H PRN (Reason: pain) 7 Days Qty: 28 RF: 0 sertraline 100 mg tablet 100 mg PO DAILY Qty: 30 RF: 1 hydroxyzine pamoate 50 mg capsule 50 mg PO BID PRN (Reason: anxiety) Qty: 60 RF: 1 pantoprazole [Protonix] 40 mg tablet,delayed release (DR/EC) 40 mg PO DAILY 30 Days Qty: 30 RF: 2 scopolamine base [Transderm-Scop] 1 mg over 3 days patch 3 day 1 patch transdermal Q3D PRN (Reason: nausea and vomiting) Qty: 4 RF: 3 ondansetron HCl [Zofran] 4 mg tablet 4 mg PO Q8H PRN (Reason: nausea and vomiting) 20 Days Qty: 60 RF: 2 cyclobenzaprine 10 mg tablet 10 mg PO BID PRN (Reason: muscle spasm) Qty: 20 RF: 0 Discharge Orders: Discharge Order (Routine); Ordered 01/29/21 Ordered By: James Becker Referrals: James Becker MD [Physician] - 02/12/21 8:15 am (Return to bariatric surgery office this coming Tuesday) Discharge Diet: As Directed Discharge Activity: Limit activity as instructed Patient Instructions: Pancreatitis (GEN), Dehydration (GEN), Laparoscopic Sleeve Gastrectomy (DC), Opioid Safety Activity Restrictions/Additional Instructions: 1. Patient can shower after 48 hours from surgery 2. Remove Dermabond 7 to 10 days after surgery, if there is a secondary dressing can take down after 48 hours. 3. Up and walking as tolerated 4. Do not lift more than 5 pounds first 2 weeks after surgery and not more than 25 pounds 6 to 8 weeks after surgery. 5. Do not operate heavy machinery or drive while using pain medications. 6.Contact the office or return to the ER for worsening nausea vomiting fevers or chills, or noticing any redness around incision sites or discharge. 7. Drain care and teaching 8. Avoid constipation Discharge Attestations Time Spent in Discharge Care*: greater than 30 min Specific Discharge Activities: educating patient Status at Discharge: Cognitive status at discharge: cognitively intact , Behavioral status at discharge: cooperative , Quality Metrics Clinical Quality Measures During this hospital stay, did patient experience: None Coding Level of Care Code Acute Ermiasg MAXIM MYRICK note Diagnoses Nausea and vomiting R11.2 Pancreatitis K85.90
[2021-01-29 12:58] VITALS: BP 132/68; PULSE 83; RESP 16; TEMP 37.2; O2SAT 96
== END 2021-01-29 12:59 | disposition home or self-care (01) | DRG 641 ==
LOC: MEDSURG 14:48
PROVIDERS: Admitting Provider Surgery; PCP Nurse Practitioner Family; Visit Provider Surgery
DX: E86.0 Dehydration (principal); Z98.84 Bariatric surgery status; F43.12 Post-traumatic stress disorder, chronic; F32.9 Major depressive disorder, single episode, unspecified; G47.00 Insomnia, unspecified; M51.17 Intervertebral disc disorders with radiculopathy, lumbosacral region; E66.9 Obesity, unspecified; Z68.32 Body mass index [BMI] 32.0-32.9, adult; E83.51 Hypocalcemia; R11.2 Nausea with vomiting, unspecified; Z79.891 Long term (current) use of opiate analgesic
CPT/HCPCS: 36415; 74150; 76705; 80048; 80061; 80076; 82150; 83690; 85014; 85018; 96360; 96372; 96374; C9113; G0378; J0610; J1650; J2270; J2765; J7030; J7040

== ENCOUNTER → 2021-03-05 15:58 | Outpatient (BNVA) | payer MEDICAID, SELFPAY | PROVIDERS: PCP Nurse Practitioner Family; Visit Provider Counselor Mental Health | DX: F43.11 Post-traumatic stress disorder, acute (principal); F41.9 Anxiety disorder, unspecified; F33.1 Major depressive disorder, recurrent, moderate; R68.82 Decreased libido | CPT/HCPCS: 90834 ==

== ENCOUNTER 2021-03-19 12:35 | Observation (INO) | payer MEDICAID, SELFPAY ==
[2021-03-19 13:19] VITALS: BMI 29.7
[2021-03-19 13:22] VITALS: BP 121/86; PULSE 91; RESP 18; TEMP 36.1; O2SAT 97
[2021-03-19 14:00] VITALS: PULSE 80
[2021-03-19] MEDS: lactated ringers 1,000 ML 999 ML IV (14:02)
[2021-03-19] MEDS: famotidine 20 mg/2 mL INJ IVP (14:03)
[2021-03-19] MEDS: scopolamine 1.5 Patch 1 PATCH TRANSDERMA (14:03)
[2021-03-19 14:11] LABS: Basophils % 0.6 %; Eosinophils # 0.1 10^3/uL (0.0-0.8); Eosinophils % 1.8 %; Hematocrit 42.5 % (37.0-47.0); Lymphocytes # 2.4 10^3/uL (0.8-4.8); Lymphocytes % 44.8 %; Mean Corpuscular HGB Conc 30.6 g/dL (30.0-36.0); Mean Corpuscular Hemoglobin 29.9 pg (28.0-34.0); Mean Corpuscular Volume 97.7 fl (81-99); Mean Platelet Volume 10.1 fL (7.4-10.4); Monocytes # 0.7 10^3/uL (0.2-0.9); Monocytes % 12.7 %; Neutrophils # 2.17 10^3/uL (1.8-7.7); Neutrophils % 40.1 %; Nucleated Red Blood Cells % 0 %; Platelet Count 240 10^3/cmm (130-400); Red Blood Count 4.35 10^6/uL (4.1-5.3); Red Cell Distribution Width 13.6 % (12.1-15.1); White Blood Count 5.4 10^3/uL (4.0-10.0)
[2021-03-19 14:32] LABS: Anion Gap 16.9 (5-19); Blood Urea Nitrogen 14 mg/dL (6-20); Calcium 9.2 mg/dL (8.5-10.5); Carbon Dioxide 22 mmol/L (22-29); Chloride 104 mmol/L (98-107); Glomerular Filtration Rate 131.1 mL/min (90-130); Glucose 103 mg/dL (65-115); Osmolality Calculated 289 mOsm/kg (285-295); Potassium 3.9 mmol/L (3.5-5.1); Sodium 139 mmol/L (136-145)
[2021-03-19 15:42] VITALS: BP 123/72; PULSE 85; RESP 18; TEMP 35.9; O2SAT 98
[2021-03-19] MEDS: lactated ringers 1,000 ML 150 ML IV (15:49)
[2021-03-19 19:30] VITALS: BP 128/86; PULSE 84; RESP 18; TEMP 37.1; O2SAT 100
[2021-03-19 19:32] LABS: Specific Gravity, Urine 1.015 (1.005-1.030); Urine Appearance Hazy (CLEAR); Urine Color Dark Yellow (Yellow); pH Urine 6.5 (5-7)
[2021-03-19 19:33] LABS: Add Urine Microscopic? YES; Bilirubin Urine Neg (Negative); Blood Urine Neg (Negative); Glucose Urine UA Norm (Normal); Ketones Urine 2+ (Negative); Leukocyte Esterase Urine Negative (Negative); Nitrate Urine Negative (Negative); Protein Urine Neg (Negative); Urobilinogen Urine 1 mg/dL (Negative)
[2021-03-19 19:34] LABS: Add Urine Culture? Yes; Bacteria Urine 2+ /hpf; RBC Urine 0-4 /hpf (0-2)
[2021-03-19 22:00] VITALS: PULSE 84
[2021-03-19 23:50] VITALS: BP 124/78; PULSE 77; RESP 16; TEMP 37.2; O2SAT 97
[2021-03-20] VITALS (17 sets, daily range): BP systolic 109–150; BP diastolic 55–89; PULSE 40–98; RESP 10–20; TEMP 36.1–37.1; O2SAT 93–100
[2021-03-20] MEDS: lactated ringers 1,000 ML 150 ML IV ×3 (00:17→23:15)
[2021-03-20] MEDS: famotidine 20 mg/2 mL INJ IVP (00:23)
--- NOTE | 2021-03-20 08:00 | FL_ITS ---
WS: [id number] Upper GI examination, Gastrografin. HISTORY: Prior gastric sleeve now with vomiting. COMPARISON: 01/26/2021, 01/14/2021 Fluoroscopy time: 2.3 minutes. Patient was able to swallow the Gastrografin mixture without vomiting. Distal esophagus appears eufemia l. The gastric sleeve pouch normally distended superiorly. There is an air-fluid level within the mid gastric sleeve. The distal gastric sleeve is moderately narrowed and there is delayed emptying. Ther e is mild wall thickening and edema. Beyond this area of thickening is an additional of mild dilatati on which is probably the small bowel anastomotic site. FL/FL upper GI gastrografin 26521 IMPRESSION: 1. Moderate stricture with mucosal edema involving the distal gastric sleeve. 2. Additional delayed emptying just beyond the stricture. Contrast collects ju st beyond the stricture with delayed emptying. Notified James Becker MD at 03/20/2021 11:32 AM.
--- NOTE | 2021-03-20 08:20 | P.PN_ITS ---
Subjective Subjective: Interval history: Patient feels a whole lot better, had 550 overnight urine output. Labs are reviewed nothing of significance Medications: Reviewed: Yes Vitals/I&O/Wt Last Vital Signs Temp 97.7 F 03/20/21 07:56 Pulse 81 03/20/21 07:56 Resp 17 03/20/21 07:56 BP 122/68 03/20/21 07:56 Pulse Ox 100 03/20/21 07:56 03/19/21 03/20/21 03/20/21 22:59 06:59 14:59 Intake Total 2120 / 2120 100 / 2220 Output Total 430 / 430 300 / 730 Balance 1690 / 1690 -200 / 1490 Weight last 48 hrs Weight 178 lb 6 oz Physical Exam Narrative: EXAM NARRATIVE: Patient is conscious alert oriented X3 BMI 29.7 Head and neck examination PERRLA no masses no cervical lymphadenopathy no jaundice Cardiac examination audible S1-S2 no murmurs no gallops no arrhythmias Chest is clear bilateral,abscence of Rhonchi or wheezes,no surgical emphysema Abdomen nontender nondistended soft no organomegaly guarding or rigidity/no signs of peritonitis Extremities no cyanosis no clubbing no edema Data : 03/19/21 14:00 03/19/21 14:00 A&P Assessment and plan (1) Nausea and vomiting: We will keep n.p.o. except for ice chips Continue IV fluid resuscitation Strict I's and O's We will follow an upper GI study Assurance and education All questions have been answered and all concerns have been addressed to patient's satisfaction. Status: Acute Attestations Medical Necessity Statement*: Observation status for IV fluid resuscitation and obtaining upper GI study. Time Spent in Patient Care: (>than 50% of time spent in counselling and/or di rect pt care on unit) . 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 Fwd Diagnoses Nausea and vomiting R11.2
[2021-03-20] MEDS: promethazine 25 mg/mL SDV 1 mL 12.5 MG IM (08:27)
[2021-03-20] MEDS: diatrizoate meglumine 120 mL Sol PO (09:03)
[2021-03-20] MEDS: sodium chloride 0.9% 1,000 ML 30 ML IV (14:58)
--- NOTE | 2021-03-20 15:39 | ANES.PREANE2 ---
Pre-Anesthetic Assessment Pre-Anesthetic Assessment: Height/Weight: Height 1.65 m Weight 80.91 kg Temp Pulse Resp BP Pulse Ox 98.6 F 98 10 L 130/70 100 03/20/21 15:30 03/20/21 15:30 03/20/21 15:30 03/20/21 15:30 03/20/21 15:30 Preop Diagnosis: Nausea and vomiting Proposed Procedure: Operation Date: 03/20/21 15:00 Proposed Procedures p EGD(Not Applicable) - James Becker MD Was Beta Leesa taken within 24 hours: N/A Was Clonidine taken within 24 hours: N/A Last intake: Intake Last Liquid Date 03/20/21 Last Liquid Time 10:00 Last Solid Date 03/14/21 Social: Social History: No alcohol and No tobacco Exam: Pre-Anes Outpt Exam: alert, oriented x 3, clear to auscultation bilaterally and regular rate & rhythm Airway: Submandibular: WNL Cervical ROM: WNL MP: 2 Dentition: False GI: GI: GERD Metabolic: Metabolic: Morbid obesity Musc/skel: Musc/skel: OA/DJD Neuropsych: Neuropsych: Anxiety and Depression Anesthetic Plan: ASA status: 3 Anesthesia: MAC Risk of > 500 ml blood loss (7ml/kg in children): No Meds/Allergies Current Medications: Current Medications Generic Name Dose Route Start Last Admin Trade Name Freq PRN Reason Stop Dose Admin Famotidine 20 mg 03/19/21 13:15 03/20/21 00:23 Famotidine 20 Mg /2 Ml Inj IVP 20 mg Q12H DAQUAN Administration Lactated Ringer's 1,000 mls @ 150 m ls/hr 03/19/21 13:15 03/20/21 08:34 Lactated Ringers IV 150 mls/hr .Q6H40M DAQUAN Administration Scopolamine 1 patch 03/19/21 13:15 03/19/21 14:03 Scopolamine 1.5 Patch TRANSDERMA 1 patch Q3D DAQUAN Administration PFSH Anesthesia PFSH: Medical History Bone spur of acromioclavicular joint Brain aneurysm Chronic post-traumatic stress disorder (PTSD) Depression Insomnia, persistent Intervertebral disc disorders with radiculopathy, lumbosacral region Obesity Right shoulder pain Strain of right shoulder Surgical History H/O: hysterectomy History of colonoscopy History of esophagogastroduodenoscopy (EGD) S/P appendectomy S/P cataract surgery S/P craniotomy S/P D&C (status post dilation and curettage) S/P tonsillectomy and adenoidectomy Status post laparoscopic sleeve gastrectomy Family History Mother Bleeding disorder Anesthesia complication Other CAD (coronary artery disease) Cancer Diabetes Hyperlipidemia Hypertension Stroke Suicide Social History Alcohol intake: never Female Reproductive History: Date of last menstrual period: 03/18/99 Data Anesthesia CBC & Chem 7: 03/19/21 14:00 03/19/21 14:00 Other Labs: Laboratory Results - last 48 hr 03/19/21 03/19/21 03/19/21 14:00 14:00 16:51 WBC 5.4 RBC 4.35 Hgb 13.0 Hct 42.5 MCV 97.7 MCH 29.9 MCHC 30.6 RDW 13.6 Plt Count 240 MPV 10.1 Neut % (Auto) 40.1 Lymph % (Auto) 44.8 [place] % (Auto) 12.7 Eos % (Auto) 1.8 Baso % (Auto) 0.6 Neut # (Auto) 2.17 Lymph # (Auto) 2.4 [place] # (Auto) 0.7 Eos # (Auto) 0.1 Baso # (Auto) 0.0 Nucleated RBC % (auto) 0 Nucleated RBCs # 0.0 Sodium 139 Potassium 3.9 Chloride 104 Carbon Dioxide 22 Anion Gap 16.9 BUN 14 Creatinine 0.5 GFR Calculation 131.1 H Glucose 103 Calculated Osmolality 289 Calcium 9.2 Urine Color Dark yellow Urine Appearance Hazy A Urine pH 6.5 Ur Specific [place] 1.015 Urine Protein Neg Urine Glucose (UA) Norm Urine Ketones 2+ H Urine Blood Neg Urine Nitrate Negative Urine Bilirubin Neg Urine Urobilinogen 1 H Ur Leukocyte Esterase Negative Urine RBC 0-4 H Urine WBC 5-10 H Ur Squamous Epith Cells 5-10 H Amorphous Sediment Not Reportable Urine Bacteria 2+ H Cardiac Studies: No Data to Display
--- NOTE | 2021-03-20 15:41 | ANE.PACU2 ---
Inpatient post-anesthesia follow up: Airway intact: Yes Vital signs: Temperature 98.6 F Pulse Rate 94 Respiratory Rate 20 Blood Pressure 115/70 Pulse Oximetry 100 Oxygen Delivery Me thod Room Air Oxygen Flow Rate 10 Fraction of Inspir ed Oxygen Hydration adequate: Yes Nausea and vomiting: No Pain level: 2 Mental status: Baseline
--- NOTE | 2021-03-20 15:44 | PC.CHAP ---
Pastoral Care Encounter/Spiritual Assessment Type of Contact [] Declined forest fire fighter visit [] Patient/Family/Request visit [] Outpatient visit [] Follow-up visit [] Physician referral [] Code/Alert [xx] Routine visit [] Staff referral [] Actively dying [] Patient sleeping [] Family support [] [] Out of room [] Palliative care [] [] Receiving care in room [] Pre-surgical visit [] Trauma [] Long length of stay [] ICU visit [] Other: Relational/Emotional Strength [xx] Patient feels connected with others/family/visitors/staff [] Distress [] Loneliness/isolation [] Abandonment Spirituality of Patient [xx] Person of Nory [] Attends Muslim of their Nory [xx] Believes in Prayer [xx] Reads Bible or Taoism materials [] There are Spiritual issues to be addressed Director Of Photography Interventions [xx] Prayer [xx] Active listening [xx] Non-anxious presence [] Spiritual/emotional support [] Crisis/trauma care [] Spiritual counseling [] Bereavement support [] Provided bereavement packet [xx] Provided Bible/devotional materials [] Provided toy/stuffed animal, coloring book to patient or family member [] Provided Communion [] Anointing/[place] [] Salvation [] Completed spiritual assessment [] Other: Impact on Illness or Injury [] Angry [] Fearful [] Anxious [] Often cries [] Exhaustion [] Unable to work [] Unable to attend sikh [] Unable to walk/stand [] Unable to read [] Unable to drive [] Unable to eat/drink [] Unable to sleep [] Unable to be with family [] Patient intubated [] Other: Summary Patient had weight loss surgery 8 weeks ago and stated she would do it all over again in a heartbeat because it has worked so well but this is her 2nd follow-up procedure to adjust stomach flow and she may need more such procedures. She is content with these extra procedures and had been forewarned they could be needed. She is quite content with her current status. Time spent with patient 12 minutes
--- NOTE | 2021-03-20 15:50 | PC.NURSE ---
Pt complained of new onset throbbing abd pain rated at a 9/10 upon waking up from her EGD, pt was holding her abd. Dr. Becker palpated her abd and told her it was d/t gas that he put inside for the EGD, she should pass gas and it would alleviate the pain, he would come to the floor and visit with her once I had her back in her room. Pt stated to Dr. Becker the pain was straight across. When Dr. Becker palpated her abd she made audible groans and stated it was very painful. After Dr. Becker left, the pt was complaining of n/v and constant, sharp, throbbing pain rated at a 10/10. Jennifer took the pt to the floor stating she would give an updated report to Jojo, the floor nurse. I called Jojo with an updated report of the pt's pain.
[2021-03-20] MEDS: morphine 4 mg/mL SDV 1 mL 2 MG IVP ×2 (16:14→19:56)
--- NOTE | 2021-03-20 16:14 | XR_ITS ---
WS: [id number] XR acute abdomen series [id number] REASON FOR EXAM: ABDOMINAL PAIN S/P EGD AND BALLOON DILATATION FINDINGS: There are some linear opacities in the left lower lung. Probably a similar but much less prominent ab normality in the right lower lung. There is no free air or retroperitoneal air. There is moderate gaseous distention of colon and a milder distention of several small bowel loops. R esidual contrast is seen within the colon. No other significant findings. XR/XR acute abdomen series 55515 IMPRESSION: The findings in the left lower lung could represent some areas of atelectasis h owever the appearance is not typical and a subacute pneumonitis cannot be exclu ded. Follow-up chest x-ray is recommended. No acute abdominal abnormality.
[2021-03-20] MEDS: sucralfate 1 gm/10 mL Oral Liq UDC PO ×2 (16:53→21:11)
[2021-03-20] MEDS: ondansetron 2 mg/ML SDV 2 mL 4 MG IVP (20:12)
[2021-03-21] VITALS: BP 111/72; PULSE 83; RESP 16; TEMP 37.1; O2SAT 98
[2021-03-21] MEDS: famotidine 20 mg/2 mL INJ IVP (00:50)
[2021-03-21] MEDS: acetaminophen 325 mg Tablet 650 MG PO (01:17)
[2021-03-21 04:00] VITALS: BP 115/77; PULSE 83; RESP 16; TEMP 36.4; O2SAT 94
[2021-03-21 05:46] VITALS: PULSE 78
[2021-03-21 06:06] LABS: Anion Gap 14.7 (5-19); Blood Urea Nitrogen 5 mg/dL (6-20); Calcium 8.6 mg/dL (8.5-10.5); Carbon Dioxide 23 mmol/L (22-29); Chloride 105 mmol/L (98-107); Glomerular Filtration Rate 169.7 mL/min (90-130); Glucose 79 mg/dL (65-115); Osmolality Calculated 284 mOsm/kg (285-295); Potassium 3.7 mmol/L (3.5-5.1); Sodium 139 mmol/L (136-145)
--- NOTE | 2021-03-21 07:23 | P.SS_ITS ---
Short Stay Summary Providers Date of Admit/Discharge: 03/21/21 Attending Provider: James Becker MD Primary Care Provider: DIXIE Skelton HPI History of Present Illness Ms. Kesha Torre is a pleasant 50 year old female well-known to me as she did undergo a laparoscopic vertical sleeve gastrectomy with [id number] gastrogastrostomy back in January 13, 2021. Patient presented over the past few days with repeated nausea and vomiting subsequently she encountered dehydration that required admitting to the hospital to my service for observation status r equiring IV fluid resuscitation ,lab work and an upper GI study that was done that showed potential mild narrowing at the mid gastric conduit. That was followed by EGD and balloon dilation. Patient overall responded well to IV fluid resuscitation and met the appropriate criteria for safe discharge home after tolerating p.o. intake. Review of Systems General: Reports: 10 or more systems reviewed and unremarkable except in HPI and below Home Meds/Allergies Home Medications and Allergies Allergies Allergy/AdvReac Type Severity Reaction Status Date / Time adhesive tape Allergy knots Verified 03/20/21 08:22 gabapentin [From Neurontin] Allergy loses Verified 03/20/21 08:22 feeling in legs PFSH Acute PFSH: Medical History Bone spur of acromioclavicular joint Brain aneurysm Chronic post-traumatic stress disorder (PTSD) Depression Insomnia, persistent Intervertebral disc disorders with radiculopathy, lumbosacral region Obesity Right shoulder pain Strain of right shoulder Surgical History H/O: hysterectomy History of colonoscopy History of esophagogastroduodenoscopy (EGD) S/P appendectomy S/P cataract surgery S/P craniotomy S/P D&C (status post dilation and curettage) S/P tonsillectomy and adenoidectomy Status post laparoscopic sleeve gastrectomy Family History Mother Bleeding disorder Anesthesia complication Other CAD (coronary artery disease) Cancer Diabetes Hyperlipidemia Hypertension Stroke Suicide Social History Alcohol intake: never Female Reproductive History: Date of last menstrual period: 03/18/99 Vitals/I&O/Wt Last Vital Signs Temp 97.6 F 03/21/21 04:00 Pulse 78 03/21/21 05:46 Resp 16 03/21/21 04:00 BP 115/77 03/21/21 04:00 Pulse Ox 94 03/21/21 04:00 03/20/21 03/21/21 03/21/21 22:59 06:59 14:59 Intake Total 1860 / 1860 120 / 1980 Output Total 800 / 1200 700 / 1900 Balance 1060 / 660 -580 / 80 Weight last 48 hrs Weight 178 lb 6 oz Physical Exam Narrative: EXAM NARRATIVE: Patient is conscious alert oriented X3 BMI 29.7 Head and neck examination PERRLA no masses no cervical lymphadenopathy no jaundice Cardiac examination audible S1-S2 no murmurs no gallops no arrhythmias Chest is clear bilateral,abscence of Rhonchi or wheezes,no surgical emphysema Abdomen nontender nondistended soft no organomegaly guarding or rigidity/no signs of peritonitis Extremities no cyanosis no clubbing no edema Hospital Course Hospital Course Patient overall did well and responded to IV fluid resuscitation. Undergone an upper GI study that showed; 1. Moderate stricture with mucosal edema involving the distal gastric sleeve. 2. Additional delayed emptying just beyond the stricture. Contrast collects just beyond the stricture with delayed emptying. Following that patient undergone diagnostic EGD on 03/20/2021 that showed reflux esophagitis and mid gastric conduit angulation that simulated a stricture which initially balloon dilation was implemented but I was even able to pass and traverse the stricture with endoscopy prior to the balloon dilation. Post EGD patient encountered acute abdominal pain likely due to gas distention, yet I elected to obtain acute abdominal series to make sure that the patient does not have perforation. Which was not the case and acute abdominal series was done and showed; There are some linear opacities in the left lower lung. Probably a similar but much less prominent abnormality in the right lower lung. There is no free air or retroperitoneal air. There is moderate gaseous distention of colon and a milder distention of several small bowel loops. Residual contrast is seen within the colon. No other significant findings. XR/XR acute abdomen series [id number] IMPRESSION: The findings in the left lower lung could represent some areas of atelectasis however the appearance is not typical and a subacute pneumonitis cannot be excluded. Follow-up chest x-ray is recommended. No acute abdominal abnormality. Repeated lab work today showed appropriate findings and patient maintained to have appropriate tolerance to p.o. intake except for 1 bout of small emesis yesterday but she did mention that the taste of the juice was not good. Otherwise been think I have stable vital signs and good urine output. On the acute abdominal series there was some concern about atelectasis versus subacute pneumonitis on the left lung. Also,the urine collected showed preliminary gram-negative rods. We will plan to send the patient on Levaquin 500 mg daily for 5 days empirically. And will follow on final cultures and sensitivities. Discharge Summary This is a pleasant 50 years old female patient status post laparoscopic sleeve gastrectomy did encounter repeated nausea and vomiting with dehydration, that required admission to the hospital for IV fluid resuscitation. Patient overall responded to conservative measures and undergone an upper GI study that followed by EGD for diagnostic purposes and was found to have angulation at the mid part of the gastric conduit not necessarily an actual stricture. At this point Carafate was added to the patient and we will continue clear liquid diet with the plan to have the patient undergo stent placement by GI service in [facility]. I did talk in person over the phone with Dr. Fisher GI specialist [facility] over [facility] in [place] as I did explain the rationale about potential benefit of stent placement and he agreed on that.The referral is already sent from my office yesterday and will plan to follow on that.To Get the patient in the sooner the better. I did educate the patient about the plan of care and she does agree on that. Assurance and education All questions have been answered and all concerns have been addressed to patient's satisfaction. SSS Data Data Completed and Pending: Completed Studies During Hospitalization Category Date Time Status [place] upper GI gastr ografin [id number] Rout ine Exams 03/20/21 08:00 Completed XR acute abdomen series [id number] Stat Exams 03/20/21 16:14 Completed Pending at discharge Category Date Time Status Urine Culture Rou mario Lab 03/19/21 16:51 Received Diagnoses at Discharge Discharge Diagnosis (1) Nausea and vomiting: Status: Resolved Discharge Plan Discharge Patient Disposition: Home Condition: Stable Prescriptions: New Carafate 1 gram tablet 1 g PO TID 84 Days Qty: 252 RF: 0 levofloxacin 500 mg tablet 500 mg PO DAILY 5 Days RF: 0 Continued pantoprazole [Protonix] 40 mg tablet,delayed release (DR/EC) 40 mg PO DAILY 30 Days Qty: 30 RF: 2 ondansetron HCl [Zofran] 4 mg tablet 4 mg PO Q8H PRN (Reason: nausea and vomiting) 20 Days Qty: 60 RF: 2 Discharge Orders: Discharge Order (Routine); Ordered 03/21/21 Ordered By: James Becker Referrals: James Becker MD [Physician] - 1 week (Please call [facility] Painting Machine Operator on Tuesday to schedule an appointment to be seen in one week.) Discharge Diet: As Directed Discharge Activity: Increase activity as tolerated Patient Instructions: Sucralfate (By mouth), Levofloxacin (By mouth), GI Discharge Instructions, Opioid Safety Activity Restrictions/Additional Instructions: Please educate patient with regard to stages of diet at discharge from the hospital Stage 1 When do I start this stage? The day after your discharge from the hospital (Day 1) How long will I be on this stage? For 2 days at discharge from the hospital Goals: ? Drink 4 to 6 ounces of fluid per hour. ? Aim for a total of 64 ounces of fluid daily. Add the following food/beverages to your diet: Clear broth or bouillon 100% no sugar added apple, cranberry, or grape juice. Dilute with 1 part juice and 1 part water. No citrus justice (i.e. organe juice, grapefruit juice, etc.) Limit to 8 ounces per or less per day. Tea (do not add milk) Coffee (do not add milk or creamer) Sugar-free gelatin Sugar-free popsicles Sugar-free flavored beverages (Crystal Light?, Sugar-Free Elvis-Aid?, Propel?, PowerAde Zero?, Vitamin Water 10?, Fruit?0?, Sob? Lean?, etc.) Artificial sweetener of your choice Stage 2 When do I start this stage? Day 3 (or once you are discharged from the hospital) How long will I be on this stage? Day 3 thru Day 13 Goals: ? Drink 4 to 6 ounces of fluid per hour. ? Aim for a total of 64 ounces of fluid daily. ? Aim to meet protein goals with liquid protein supplements Add the following food/beverages to your diet: Protein supplements (thin, water-based supplement may be easier to digest at first while milk-based supplements may feel ?heavy? and uncomfortable at first) Milk: 1%, skim, light soy milk, or lactose-free milk Please educate patient to stay on stage II till she follows up with me at the bariatric surgery office. Attestations Medical Necessity Statement*: Patient required observation status for IV fluid resuscitation and obtaining upper GI study and intervention in the form of diagnostic EGD. 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
[2021-03-21] MEDS: levoFLOXacin 500 mg Tablet PO (07:39)
[2021-03-21 07:54] VITALS: BP 111/76; PULSE 68; RESP 15; TEMP 36.8; O2SAT 98
--- NOTE | 2021-03-21 09:13 | PC.NURSE ---
THIS NURSE WENT OVER DISCHARGE PAPERWORK WITH PT. PT DOES NOT HAVE ANY COMPLAINTS. PT DID NOT HAVE ANY QUESTIONS. IV WAS REMOVED. PT TOLERATED WELL. CATHETER TIP INTACT. PT SAFELY DISCHARGED FROM HOSPITAL AT 0820.
[2021-03-21 09:19] VITALS: BP 111/76; PULSE 68; RESP 15; TEMP 36.8; O2SAT 98
--- NOTE | 2021-03-24 10:47 | PC.SOCIAL ---
discharge follow up call made. patient was in the ED yesterday so bid writer waited to call patient today for follow up. Patient reports she was having a lot of pain yesterday but is much better today. patient reports that she will be having a stent placed in her stomach in [place] and she doesn't need follow up with Dr. Becker until that happens. She reports the ED and Dr. Becker are working to get that arranged. patient is taking zofran as prescribed for nausea and vomiting. patient is follow strict gastic sleeve diet. denies questions or concerns.
== END 2021-03-21 08:20 | disposition home or self-care (01) ==
PROVIDERS: Admitting Provider Surgery; PCP Nurse Practitioner Family; Visit Provider Surgery
PROC: 0DJ08ZZ Inspection of Upper Intestinal Tract, Via Natural or Artificial Opening Endoscopic (ICD-10-PCS; CPT 43235; principal; 2021-03-20 15:00)
DX: R11.2 Nausea with vomiting, unspecified (principal); F32.9 Major depressive disorder, single episode, unspecified; E66.01 Morbid (severe) obesity due to excess calories; Z68.29 Body mass index [BMI] 29.0-29.9, adult
CPT/HCPCS: 43235; 43249; 74022; 74240; 80048; 81001; 85025; 87077; 87086; 87186; 96372; G0378; G0379; J2270; J2405; J2550; J2704; J3490; J7030; Q9963

== ENCOUNTER 2021-03-23 09:34 | Emergency (ER) | payer MEDICAID, SELFPAY ==
[2021-03-23] VITALS (14 sets, daily range): BP systolic 106–150; BP diastolic 78–99; PULSE 81–115; RESP 14–39; TEMP 36.7; O2SAT 95–100; BMI 28.6
--- NOTE | 2021-03-23 09:41 | CT_ITS ---
WS: [id number] CTA CHEST WITH ABDOMEN AND PELVIS TECHNIQUE: Noncontrast plus contrast enhanced CTA of the chest, abdomen, and pelvis with coronal and sagittal reformatted images and additional MIP Images. CLINICAL INFORMATION: chest and abd pain - 9wks s/p bariatric surgery COMPARISON: None. DLP: 1407.[address] scans at [facility] use at least one of these dose optimization techniques: automated e xposure control; mA and/or kV adjustment per patient size (includes targeted exams where dose is matc hed to clinical indication); or iterative reconstruction. FINDINGS: Proximal main pulmonary arteries are normal. Normal segmental and subsegmental pulmonary arteries. No evidence of pulmonary embolus. Normal caliber thoracic aorta. No mediastinal or hilar lymphadenopath y. Calcified AP window lymph nodes. Small pericardial effusion. No axillary lymphadenopathy. Both bill gs are well aerated. No acute pulmonary infiltrates. Diffuse fatty infiltration the liver. Normal portal vein and splenic vein. Normal gallbladder. Postop erative changes gastric sleeve procedure with gastrogastrostomy. Small fluid collection between the s pleen and gastric fundus improved compared to January 26, 2021. This measures approximately 2.2 x 1.3 CM . Submucosal edema involving the distal stomach extending into the duodenum improved compared to January 26, 2021. Air-fluid level in the stomach with evidence of moderate distal gastric narrowing. This is similar in appearance to recent upper GI with delayed emptying. No free air or drainable abscess. Fatty atrophy of the pancreas. Adrenal glands are normal. Normal renal parenchymal enhancement. No hy dronephrosis in either kidney. Normal caliber abdominal aorta. Normal sigmoid colon. No evidence of h igh-grade small or large bowel obstruction. No free fluid in the pelvis. CT/CT angio chest w abd pel w con IMPRESSION: 1. No evidence for pulmonary embolism. 2. Both lungs are well aerated. 3. Postoperative changes gastric sleeve procedure with gastrogastrostomy 4. Air-fluid level in the stomach with submucosal edema in the distal stomach with evidence of moderate narrowing unchanged since the recent upper GI. 5. Small postoperative fluid collection between the stomach and spleen measuri ng 6. No free air or drainable abscess. Notified Uriah Garcia DO at 03/23/2021 10:[address] Barrett 03/23/2021 10:47 AM
--- NOTE | 2021-03-23 09:42 | ECG_ITS ---
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
--- NOTE | 2021-03-23 09:43 | W.ED.ABDPA2 ---
HPI - Abdominal Pain General: Chief Complaint: Chest Pain Stated Complaint: CP Time Seen by Provider: 03/23/21 09:36 History of Present Illness: HPI narrative: 50-year-old female presents to emergency room with epigastric and central to right-sided chest pain that began couple days ago is progressively gotten worse. She states she feels like she cannot breathe at times. She is 9 weeks postop laparoscopic bariatric surgery at our facility. She denies any fever sweats or chills she has not had any bowel movements for the last several days but has been vomiting recurrently. She denies any medic easy melena hematemesis or coffee-ground emesis. MD elicited complaint: abdominal pain Pertinent past history: other (9 weeks postop laparoscopic bariatric surgery) Onset (ago): hour(s) Location: Chest and Epigastric Severity: severe Quality: stabbing and sharp Migration to: no migration Exacerbating factors: vomiting Relieving factors: nothing Associated Symptoms: Reports bloating, GI cramping, nausea, poor appetite and vomiting; Denies anorexia, belching, change in bowel habits, change in stool character, chills, coffee ground emesis, constipation, diarrhea, dyspepsia, dysuria, excessive flatus, fever(s), heartburn, hematochezia, hematuria, hematemesis, fecal incontinence, loose stools, melena and syncope Related Data: Date of Last Menstrual Period: 03/18/99 Review of Systems Const: Denies: fever(s) or chills ENMT: Denies: throat pain, ear or mastoid pain, nasal discharge or nasal congestion Card: Denies: syncope Resp: Denies: dyspnea, productive cough or non-productive cough GI: Reports: nausea, vomiting, bloating and GI cramping; Denies: hematemesis, coffee ground emesis, heartburn, diarrhea, constipation, belching, excessive flatus, fecal incontinence, change in bowel habits, change in stool character, hematochezia or melena : Denies: dysuria or hematuria Skin/Breast: Denies: rash or pruritus PFSH ED PFSH: Medical History Bone spur of acromioclavicular joint Brain aneurysm Chronic post-traumatic stress disorder (PTSD) Depression Insomnia, persistent Intervertebral disc disorders with radiculopathy, lumbosacral region Obesity Right shoulder pain Strain of right shoulder Surgical History H/O: hysterectomy History of colonoscopy History of esophagogastroduodenoscopy (EGD) S/P appendectomy S/P cataract surgery S/P craniotomy S/P D&C (status post dilation and curettage) S/P tonsillectomy and adenoidectomy Status post laparoscopic sleeve gastrectomy Family History Mother Bleeding disorder Anesthesia complication Other CAD (coronary artery disease) Cancer Diabetes Hyperlipidemia Hypertension Stroke Suicide Social History Alcohol intake: never Female Reproductive History: Date of last menstrual period: 03/18/99 Physical Exam Const: COMMON NORMALS: no acute distress GENERAL APPEARANCE: cooperative and comfortable ORIENTATION/CONSCIOUSNESS: Yes awake, Yes oriented to person, Yes oriented to place and Yes oriented to time HENMT: COMMON NORMALS: normocephalic, atraumatic and hearing grossly normal bilaterally HEAD & SCALP: normocephalic and atraumatic Resp: COMMON NORMALS: normal respiratory effort, No retractions, No use of accessory muscles and clear to auscultation bilaterally AUSCULTATION: clear to auscultation bilaterally Cardio: COMMON NORMALS: regular rate, regular rhythm and No murmurs present (Cardio) RATE: regular rate RHYTHM: regular rhythm GI: AUSCULTATION: Yes Absent bowel sounds PALPATION: Yes Tenderness to palpation present (GI), Yes Guarding due to palpation present (GI) and Yes Rigid due to palpation Extremity: COMMON NORMALS: normal to inspection, capillary refill normal, no clubbing, cyanosis or edema, no calf tenderness and no pedal edema Neuro: SENSORIUM/ORIENTATION: Yes oriented to person, Yes oriented to place and Yes oriented to time Skin: COMMON NORMALS: no rashes or lesions noted GENERAL SKIN EXAM: no rashes or lesions noted Course Vital Signs: Vital signs: Vital Signs Temperature 98.1 F 03/23/21 11:50 Pulse Rate 95 03/23/21 11:50 Respiratory Rate 14 03/23/21 11:50 Blood Pressure 137/87 03/23/21 11:50 Pulse Oximetry 100 03/23/21 11:50 MDM - Abdominal Pain MDM Narrative: Medical decision making narrative: Reviewed labs imaging and EKG as found on the chart. Long ER course. Discussed Dr. Bekcer. Patient 9 weeks ago had a gastric bypass has advanced her diet beyond what would be the normal course which has been causing problems. She recently an EGD by Dr. Patrick and has been making arrangements for her to get a stent at the gastric outlet. She is not able to pass solid starts having she is feeling much better now after pain medications and nausea medicines and fluids. Evaluation interventions. She can certainly return if she has any further problems. We did contact the gastroenterology office they don't have anybody available to accept her today. Dr. Becker came down and seen the patient as well. We'll discharge her home strongly encourage her to stick to a liquid only diet use promethazine as needed Dr. Becker's office or the GI office will contact her for further w Lab Data: Labs: Lab Results 03/23/21 03/23/21 03/23/21 09:45 09:45 09:45 WBC 9.7 10^3/uL 10^3/ uL (4.0-10.0) RBC 4.43 10^6/uL 10^6 /uL (4.1-5.3) Hgb 13.1 g/dL g/dL (11.5-15.3) Hct 39.9 % % (37.0-47.0) MCV 90.1 fl fl (81-99) MCH 29.6 pg pg (28.0-34.0) MCHC 32.8 g/dL g/dL (30.0-36.0) RDW 13.6 % % (12.1-15.1) Plt Count 288 10^3/cmm 10^3 /cmm (130-400) MPV 9.8 fL fL (7.4-10.4) Neut % (Auto) 65.5 % % Lymph % (Auto) 26.9 % % [place] % (Auto) 6.6 % % Eos % (Auto) 0.4 % % Baso % (Auto) 0.3 % % Neut # (Auto) 6.38 10^3/uL 10^3 /uL (1.8-7.7) Lymph # (Auto) 2.6 10^3/uL 10^3/ uL (0.8-4.8) [place] # (Auto) 0.6 10^3/uL 10^3/ uL (0.2-0.9) Eos # (Auto) 0.0 10^3/uL 10^3/ uL (0.0-0.8) Baso # (Auto) 0.0 10^3/uL 10^3/ uL (0.0-0.1) Nucleated RBC % (a uto) 0 % % Nucleated RBCs # 0.0 /100WBC /100W BC Specimen Type Sample Site ABG pH ABG pCO2 ABG pO2 ABG HCO3 ABG O2 Saturation ABG Base Excess Warner Test A-a O2 Gradient Hematocrit Hgb O2 Saturation Carboxyhemoglobin Methemoglobin Total Hemoglobin Ionized Calcium O2 Delivery Device FiO2 Electronics Commodity Manager ID Sodium 140 mmol/L mmol/L (136-145) Potassium 3.9 mmol/L mmol/L (3.5-5.1) Chloride 102 mmol/L mmol/L (98-107) Carbon Dioxide 19 mmol/L L mmol/ L (22-29) Anion Gap 22.9 H (5-19) BUN 10 mg/dL mg/dL (6-20) Creatinine 0.6 mg/dL mg/dL (0.5-0.9) GFR Calculation 106.3 mL/min mL/m in (90-130) Glucose 97 mg/dL mg/dL (65-115) Calculated Osmolal ity 289 mOsm/kg mOsm/ kg (285-295) Lactic Acid 1.5 mmol/L mmol/L (0.5-2.2) Calcium 9.7 mg/dL mg/dL (8.5-10.5) Total Bilirubin 0.5 mg/dL mg/dL (0.15-1.2) AST 12 U/L U/L (0-32) ALT 10 U/L U/L (0-33) Alkaline Phosphata se 68 IU/L IU/L (35-105) Creatine Kinase 39 U/L U/L (26-192) Troponin T Baselin e Troponin T 120 Min [place] Troponin T Total Protein 7.3 g/dL g/dL (6.6-8.7) Albumin 4.4 g/dL g/dL (3.5-5.2) Globulin 2.9 g/dL g/dL (1.3-4.6) Lipase Urine Color Urine Appearance Urine pH Ur Specific Gravit y Urine Protein Urine Glucose (UA) Urine Ketones Urine Blood Urine Nitrate Urine Bilirubin Urine Urobilinogen Ur Leukocyte Viridiana ase Urine RBC Urine WBC Ur Squamous Epith Cells Amorphous Sediment Urine Bacteria 03/23/21 03/23/21 03/23/21 09:45 09:45 10:07 WBC RBC Hgb Hct MCV MCH MCHC RDW Plt Count MPV Neut % (Auto) Lymph % (Auto) [place] % (Auto) Eos % (Auto) Baso % (Auto) Neut # (Auto) Lymph # (Auto) [place] # (Auto) Eos # (Auto) Baso # (Auto) Nucleated RBC % (a uto) Nucleated RBCs # Specimen Type Arterial Sample Site Brachial, left ABG pH 7.58 H* (7.35-7.45) ABG pCO2 17.6 mmHg L* mmHg (35-45) ABG pO2 97.5 mmHg mmHg (80.0-100.0) ABG HCO3 16.3 mmol/L L mmo l/L (22-26) ABG O2 Saturation 99.5 ABG Base Excess -3.4 mmol/L L mmo l/L (-2.0-2.0) Warner Test Pos A-a O2 Gradient 3.6 mmHg L mmHg (5-10) Hematocrit 36.9 % L % (37-47) Hgb O2 Saturation 97.9 % % (95-100) Carboxyhemoglobin 1.0 %THgb %THgb (0.4-20.1) Methemoglobin 0.7 % % (0.4-1.5) Total Hemoglobin 12.0 g/dL g/dL (12-16) Ionized Calcium 1.2 mmol/L mmol/L (1.1-1.4) O2 Delivery Device Room air FiO2 21.0 % % Electronics Commodity Manager ID Cak Sodium 139.0 mmol/L mmol /L (131-143) Potassium 3.3 mmol/L L mmol /L (3.5-5.0) Chloride Carbon Dioxide Anion Gap BUN Creatinine GFR Calculation Glucose 96.0 mg/dL mg/dL (70-115) Calculated Osmolal ity Lactic Acid Calcium Total Bilirubin AST ALT Alkaline Phosphata se Creatine Kinase Troponin T Baselin e 6 ng/L ng/L (0-10) Troponin T 120 Min [place] Troponin T Total Protein Albumin Globulin Lipase 13 U/L U/L (13-60) Urine Color Urine Appearance Urine pH Ur Specific Gravit y Urine Protein Urine Glucose (UA) Urine Ketones Urine Blood Urine Nitrate Urine Bilirubin Urine Urobilinogen Ur Leukocyte Viridiana ase Urine RBC Urine WBC Ur Squamous Epith Cells Amorphous Sediment Urine Bacteria 03/23/21 03/23/21 11:20 12:00 WBC RBC Hgb Hct MCV MCH MCHC RDW Plt Count MPV Neut % (Auto) Lymph % (Auto) [place] % (Auto) Eos % (Auto) Baso % (Auto) Neut # (Auto) Lymph # (Auto) [place] # (Auto) Eos # (Auto) Baso # (Auto) Nucleated RBC % (a uto) Nucleated RBCs # Specimen Type Sample Site ABG pH ABG pCO2 ABG pO2 ABG HCO3 ABG O2 Saturation ABG Base Excess Warner Test A-a O2 Gradient Hematocrit Hgb O2 Saturation Carboxyhemoglobin Methemoglobin Total Hemoglobin Ionized Calcium O2 Delivery Device FiO2 Electronics Commodity Manager ID Sodium Potassium Chloride Carbon Dioxide Anion Gap BUN Creatinine GFR Calculation Glucose Calculated Osmolal ity Lactic Acid Calcium Total Bilirubin AST ALT Alkaline Phosphata se Creatine Kinase Troponin T Baselin e Troponin T 120 Min [place] 6.00 ng/L ng/L (0-10) [place] Troponin T 0 ABS# ABS# (0-10) Total Protein Albumin Globulin Lipase Urine Color Yellow (Yellow) Urine Appearance Clear (CLEAR) Urine pH 7 (5-7) Ur Specific Gravit y 1.005 (1.005-1.030) Urine Protein Trace (Negative) Urine Glucose (UA) Norm (Normal) Urine Ketones 1+ H (Negative) Urine Blood Neg (Negative) Urine Nitrate Negative (Negative) Urine Bilirubin Neg (Negative) Urine Urobilinogen 1 mg/dL H mg/dL (Negative) Ur Leukocyte Viridiana ase Negative (Negative) Urine RBC None /hpf /hpf (0-2) Urine WBC None /hpf /hpf (0-5) Ur Squamous Epith Cells 0-4 /hpf H /hpf (0-5) Amorphous Sediment Not Reportable Urine Bacteria None /hpf /hpf (NONE) Discharge Plan Discharge Patient Disposition: Home Clinical Impression: Complication of bariatric procedure Condition: Stable Prescriptions: New promethazine 25 mg tablet 25 mg PO Q6H PRN (Reason: nausea and vomiting) Qty: 14 RF: 0 No Action amoxicillin-pot clavulanate [Augmentin] 875-125 mg tablet 1 tab PO BID 5 Days Qty: 10 RF: 0 ondansetron HCl [Zofran] 4 mg tablet 4 mg PO Q8H PRN (Reason: nausea and vomiting) 20 Days Qty: 60 RF: 2 multivitamin Tablet 1 tab PO DAILY RF: 0 cyclobenzaprine 10 mg tablet 10 mg PO TID PRN (Reason: Muscle Spasm) RF: 0 Tylenol Extra Strength 500 mg Tablet 500 mg PO Q4H PRN (Reason: Pain) RF: 0 Calcium 600 600 mg calcium (1,500 mg) Tablet 600 mg PO DAILY RF: 0 Hair,Skin and Nails Tablet 1 tab PO DAILY RF: 0 Vitamin B-12 1 tab PO DAILY RF: 0 Vitamin D3 1 cap PO DAILY RF: 0 Carafate 1 gram tablet 1 g PO TID RF: 0 Protonix 40 mg tablet,delayed release (DR/EC) 40 mg PO BEDTIME RF: 0 levofloxacin 500 mg tablet 500 mg PO DAILY RF: 0 Discharge Orders: Discharge ED (Routine); Ordered 03/23/21 Ordered By: Uriah Garcia Referrals: NICOLLE Rosario, LEAD SECURITY OFFICER [Primary Care Provider] - Discharge Diet: As Directed Discharge Activity: Increase activity as tolerated Patient Instructions: Opioid Safety Activity Restrictions/Additional Instructions: Dr. Becker or the gastroenterology office will call you to arrange for further evaluation and intervention. Return if you have further problems. It is important that you remain on a liquid diet only Coding Level of Care Code ED Home Health Scheduler for Chg Fwd Exam Detailed
[2021-03-23 09:57] LABS: Basophils % 0.3 %; Eosinophils % 0.4 %; Hematocrit 39.9 % (37.0-47.0); Hemoglobin 13.1 g/dL (11.5-15.3); Lymphocytes # 2.6 10^3/uL (0.8-4.8); Lymphocytes % 26.9 %; Mean Corpuscular HGB Conc 32.8 g/dL (30.0-36.0); Mean Corpuscular Hemoglobin 29.6 pg (28.0-34.0); Mean Corpuscular Volume 90.1 fl (81-99); Mean Platelet Volume 9.8 fL (7.4-10.4); Monocytes # 0.6 10^3/uL (0.2-0.9); Monocytes % 6.6 %; Neutrophils # 6.38 10^3/uL (1.8-7.7); Neutrophils % 65.5 %; Nucleated Red Blood Cells % 0 %; Platelet Count 288 10^3/cmm (130-400); Red Blood Count 4.43 10^6/uL (4.1-5.3); Red Cell Distribution Width 13.6 % (12.1-15.1); White Blood Count 9.7 10^3/uL (4.0-10.0)
[2021-03-23] MEDS: iohexol 350 mg/mL 100 mL Btl IV (10:00)
[2021-03-23 10:15] LABS: Lactic Sepsis W/Reflex 1.5 mmol/L (0.5-2.2)
[2021-03-23] MEDS: sodium chloride 0.9% 1,000 ML 999 ML IV (10:15)
--- NOTE | 2021-03-23 10:15 | PC.PHAR ---
PT STATES SHE TAKES CARE OF HER OWN MEDICATIONS-PT STATES SHE HASNT PICKED UP HER CARAFATE 1 G TID OR LEVAQUIN 500MG DAILY RX WRITTEN ON 03/21/21 PT STATES SHE HAD TO WAIT TILL SHE GOT MONEY TO PICK THEM UP FROM [facility]-PT STATES SHE HASNT TAKEN ZOLOFT 100MG OR HYDROXYZINE PAMOATE 50MG FOR OVER A MONTH EXT MED HISTORY SHOWS LAST FILLED ON 01/24/21 30D/S PT STATES SHE IS NOT GOING TO TAKE THEM AGAIN STATES IT MAKES HER SLEEP TO MUCH-NOTES ARE MADE IN THE PHARMACY COMMENTS
[2021-03-23 10:16] LABS: Alanine Aminotransferase 10 U/L (0-33); Albumin Level 4.4 g/dL (3.5-5.2); Alkaline Phosphatase 68 IU/L (35-105); Anion Gap 22.9 (5-19); Aspartate Amino Transferase 12 U/L (0-32); Blood Urea Nitrogen 10 mg/dL (6-20); Calcium 9.7 mg/dL (8.5-10.5); Carbon Dioxide 19 mmol/L (22-29); Chloride 102 mmol/L (98-107); Creatine Phosphokinase 39 U/L (26-192); Globulin 2.9 g/dL (1.3-4.6); Glomerular Filtration Rate 106.3 mL/min (90-130); Glucose 97 mg/dL (65-115); Osmolality Calculated 289 mOsm/kg (285-295); Potassium 3.9 mmol/L (3.5-5.1); Sodium 140 mmol/L (136-145); Total Bilirubin 0.5 mg/dL (0.15-1.2); Total Protein 7.3 g/dL (6.6-8.7); Troponin(5th) Baseline 6 ng/L (0-10)
[2021-03-23 10:19] LABS: Alveolar-Arterial Oxygen Gradi 3.6 mmHg (5-10); Arterial Blood Gas Hematocrit 36.9 % (37-47); Base Excess ABG -3.4 mmol/L (-2.0-2.0); Blood Gas Allen Test Pos; Blood Gas Sample Type Arterial; HCO3 ABG 16.3 mmol/L (22-26); HGB O2 Sat 97.9 % (95-100); Ionized Calcium Level - ABG 1.2 mmol/L (1.1-1.4); Methemoglobin 0.7 % (0.4-1.5); Oxygen Saturation ABG 99.5; PO2 ABG 97.5 mmHg (80.0-100.0); Potassium Level - ABG 3.3 mmol/L (3.5-5.0)
[2021-03-23] MEDS: pantoprazole 40 mg SDV 80 MG IVP (10:19)
[2021-03-23 10:20] LABS: Blood Gas Operator Identificat CAK; Blood Gas Sample Site Brachial, left; Oxygen Device ROOM AIR
[2021-03-23] MEDS: ondansetron 2 mg/ML SDV 2 mL 4 MG IVP (10:20)
[2021-03-23] MEDS: morphine 4 mg/mL SDV 1 mL 8 MG IVP (10:20)
[2021-03-23 10:21] LABS: ABG PCO2 17.6 mmHg (35-45); ABG PH Result 7.58 (7.35-7.45)
[2021-03-23 11:02] LABS: Lipase 13 U/L (13-60)
--- NOTE | 2021-03-23 11:42 | ECG_ITS ---
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1970 Requested By: Uriah Sarmiento Order Number: [id number] Reading MD: Measurements Intervals [place] Rate: 93 P: 57 AL: 185 QRS: -1 QRSD: 94 T: 29 QT: 380 QTc: 473 Interpretive Statements SINUS RHYTHM POSSIBLE LEFT ATRIAL ENLARGEMENT [-0.1mV P-WAVE IN V1/V2] POSSIBLE RIGHT VENTRICULAR CONDUCTION DELAY [RSR (QR) IN V1/V2] SEPTAL MYOCARDIAL INFARCTION , PROBABLY OLD [40+ ms Q WAVE IN V1/V2] Compared to ECG 03/23/2021 09:44:41 Myocardial infarct finding now present Ventricular premature complex(es) no longer present [email or web address]
[2021-03-23 12:03] LABS: Add Urine Microscopic? YES; Bilirubin Urine Neg (Negative); Blood Urine Neg (Negative); Glucose Urine UA Norm (Normal); Ketones Urine 1+ (Negative); Leukocyte Esterase Urine Negative (Negative); Nitrate Urine Negative (Negative); Protein Urine Trace (Negative); Specific Gravity, Urine 1.005 (1.005-1.030); Squamous Epithelial Cell Urine 0-4 /hpf (0-5); Urine Appearance Clear (CLEAR); Urine Color Yellow (Yellow); Urobilinogen Urine 1 mg/dL (Negative); pH Urine 7 (5-7)
[2021-03-23 12:48] LABS: Troponin 5 2HR Delta 0 ABS# (0-10)
--- NOTE | 2021-03-23 12:50 | P.PN_ITS ---
Subjective Subjective: Interval history: Patient was seen and evaluated and examined in the ER. Patient presented to the emergency department acute onset of chest pain in the retrosternal area. After discharge patient was on clear liquid diet but she elected to have different choices of food and that caused her to have bouts of vomiting. Undergone full work-up in the ER including but not limited to chest CTA abdomen and pelvis to rule out PE/EKG as well. CT scan findings of chest abdomen and pelvis shown below: 1. No evidence for pulmonary embolism. 2. Both lungs are well aerated. 3. Postoperative changes gastric sleeve procedure with gastrogastrostomy 4. Air-fluid level in the stomach with submucosal edema in the distal stomach with evidence of moderate narrowing unchanged since the recent upper GI. 5. Small postoperative fluid collection between the stomach and spleen measur ing 6. No free air or drainable abscess. Vitals/I&O/Wt Last Vital Signs Temp 98.1 F 03/23/21 11:50 Pulse 95 03/23/21 11:50 Resp 14 03/23/21 11:50 BP 137/87 03/23/21 11:50 Pulse Ox 100 03/23/21 11:50 Weight last 48 hrs Weight 172 lb Physical Exam Narrative: EXAM NARRATIVE: Patient is conscious alert oriented X3 BMI 28.6 Head and neck examination PERRLA no masses no cervical lymphadenopathy no jaundice Abdomen nontender nondistended soft no organomegaly guarding or rigidity/no signs of peritonitis Extremities no cyanosis no clubbing no edema Data : 03/23/21 09:45 03/23/21 09:45 Micro: Microbiology 03/23/21 10:25 Blood Culture - Preliminary Blood SPECIMEN COLLECTED 03/23/21 10:15 Blood Culture - Preliminary Blood SPECIMEN COLLECTED A&P Assessment and plan (1) Gastric anastomotic stricture: After thorough history physical examination and reviewing the chart and images with my personal interpretation. Patient will require a gastric stent placed in as soon as possible to alleviate patient's pressure symptoms. I did educate the patient again on the importance to stay on her earlier stages of post bariatric surgery diet and avoid any solid component of food. All efforts are being tried today to transfer the patient to get her stent done and will follow on that progress. A referral was already sent last Tuesday to [facility] with that regard. Stage 1 When do I start this stage? The day after your discharge from the hospital (Day 1) How long will I be on this stage? For 2 days at discharge from the hospital Goals: ? Drink 4 to 6 ounces of fluid per hour. ? Aim for a total of 64 ounces of fluid daily. Add the following food/beverages to your diet: Clear broth or bouillon 100% no sugar added apple, cranberry, or grape juice. Dilute with 1 part juice and 1 part water. No citrus justice (i.e. organe juice, grapefruit juice, etc.) Limit to 8 ounces per or less per day. Tea (do not add milk) Coffee (do not add milk or creamer) Sugar-free gelatin Sugar-free popsicles Sugar-free flavored beverages (Crystal Light?, Sugar-Free Elvis-Aid?, Propel?, PowerAde Zero?, Vitamin Water 10?, Fruit?0?, Sob? Lean?, etc.) Artificial sweetener of your choice Stage 2 When do I start this stage? Day 3 (or once you are discharged from the hospital) How long will I be on this stage? Day 3 thru Day 13 Goals: ? Drink 4 to 6 ounces of fluid per hour. ? Aim for a total of 64 ounces of fluid daily. ? Aim to meet protein goals with liquid protein supplements Add the following food/beverages to your diet: Protein supplements (thin, water-based supplement may be easier to digest at first while milk-based supplements may feel ?heavy? and uncomfortable at first) Milk: 1%, skim, light soy milk, or lactose-free milk Patient also after being seen in my office on 03/19/2021, on her way to the hospital she attempted to eat a cheeseburger and Swiss fries and had couple of bites and then had nausea. Did remind the patient about the importance to stay on the recommended diet for the time being until we get the stent placed in to salvage her gastric conduit. Assurance and education All questions have been answered and all concerns have been addressed to patient's satisfaction. Status: Acute Attestations Medical Necessity Statement*: ER evaluation Time Spent in Patient Care: 16 - 35 minutes (>than 50% of time spent in counselling and/or direct pt care on unit) . Coding Level of Care Code Acute Pony Roll Finisher for Yahir Eng Diagnoses Gastric anastomotic stricture K92.9; K31.89
== END 2021-03-23 14:58 | disposition home or self-care (01) ==
PROVIDERS: Emergency Provider Family Medicine; PCP Nurse Practitioner Family
DX: K95.89 Other complications of other bariatric procedure (principal)
CPT/HCPCS: 36600; 71275; 74177; 80051; 80053; 81001; 82330; 82550; 82805; 83605; 83690; 84484; 85025; 87040; 93005; 96361; 96374; 96375; 99284; C9113; J2270; J2405; J7030; Q9967

== ENCOUNTER 2021-04-04 22:23 | Emergency (ER) | payer MEDICAID, SELFPAY ==
[2021-04-04 22:28] VITALS: BP 121/73; PULSE 101; RESP 18; TEMP 36.3; O2SAT 96; BMI 27.8
[2021-04-04 22:54] LABS: Basophils # 0.1 10^3/uL (0.0-0.1); Basophils % 0.7 %; Eosinophils # 0.2 10^3/uL (0.0-0.8); Eosinophils % 2.4 %; Hematocrit 32.9 % (37.0-47.0); Hemoglobin 10.9 g/dL (11.5-15.3); Lymphocytes % 23.3 %; Mean Corpuscular HGB Conc 33.1 g/dL (30.0-36.0); Mean Corpuscular Hemoglobin 30.2 pg (28.0-34.0); Mean Corpuscular Volume 91.1 fl (81-99); Mean Platelet Volume 10.2 fL (7.4-10.4); Monocytes # 0.8 10^3/uL (0.2-0.9); Monocytes % 9.3 %; Neutrophils # 5.51 10^3/uL (1.8-7.7); Neutrophils % 63.8 %; Nucleated Red Blood Cells % 0 %; Platelet Count 259 10^3/cmm (130-400); Red Blood Count 3.61 10^6/uL (4.1-5.3); Red Cell Distribution Width 14.5 % (12.1-15.1); White Blood Count 8.6 10^3/uL (4.0-10.0)
[2021-04-04 23:09] LABS: Alanine Aminotransferase 25 U/L (0-33); Albumin Level 3.3 g/dL (3.5-5.2); Alkaline Phosphatase 96 IU/L (35-105); Anion Gap 14.9 (5-19); Aspartate Amino Transferase 17 U/L (0-32); Blood Urea Nitrogen 17 mg/dL (6-20); Calcium 9.4 mg/dL (8.5-10.5); Carbon Dioxide 25 mmol/L (22-29); Chloride 99 mmol/L (98-107); Globulin 3.4 g/dL (1.3-4.6); Glomerular Filtration Rate 106.3 mL/min (90-130); Glucose 157 mg/dL (65-115); Osmolality Calculated 285 mOsm/kg (285-295); Potassium 3.9 mmol/L (3.5-5.1); Sodium 135 mmol/L (136-145); Total Bilirubin 0.4 mg/dL (0.15-1.2); Total Protein 6.7 g/dL (6.6-8.7)
[2021-04-04 23:31] VITALS: RESP 16
[2021-04-04] MEDS: ondansetron 2 mg/ML SDV 2 mL 4 MG IVP (23:31)
[2021-04-04] MEDS: HYDROmorphone 1 mg/mL INJ 1 mL IVP (23:31)
[2021-04-04 23:54] LABS: Add Urine Microscopic? YES; Bilirubin Urine Neg (Negative); Blood Urine Neg (Negative); Glucose Urine UA Norm (Normal); Ketones Urine Negative (Negative); Leukocyte Esterase Urine Negative (Negative); Nitrate Urine Negative (Negative); Protein Urine Neg (Negative); Sulfosalicylic Acid Urine Negative (Negative); Urine Color Yellow (Yellow); Urobilinogen Urine Norm (Negative); pH Urine 9 (5-7)
[2021-04-04 23:55] LABS: Add Urine Culture? No; Amorphous Sediment Urine 3+ /hpf; Bacteria Urine 1+ /hpf; RBC Urine 0-4 /hpf (0-2); WBC Urine 0-4 /hpf (0-5)
[2021-04-05] MEDS: oxyCODONE-APAP 5-325 mg Tablet 2 TAB PO (01:06)
[2021-04-05 01:07] VITALS: BP 97/61; PULSE 79; RESP 22; O2SAT 95
--- NOTE | 2021-04-05 02:18 | W.ED.ABDPA2 ---
HPI - Abdominal Pain General: Chief Complaint: Abdominal Pain Stated Complaint: ABD PAIN POST SURGERY Time Seen by Provider: 04/04/21 23:01 History of Present Illness: HPI narrative: 50-year-old female with a history of gastric sleeve surgery in [facility] in January. She had some continued belly pain and follow-up at [facility], where she was told that she had a infection and needed more surgery. She had gastric bypass surgery with cleanout 5 days ago there. She was sent home today, Tuesday. She reports that they gave her no pain medication for home. She had been getting morphine and oxycodone in the hospital they told her to take Tylenol. She has taken Tylenol without any relief. She complains of generalized abdominal pain. No vomiting. No fever she has not had a bowel movement, she has not had solid food, but she has been passing gas. MD elicited complaint: abdominal pain Pertinent past history: other Onset (ago): hour(s) Pain Consistency: constant Location: Diffuse Severity: moderate Quality: cramping, stabbing and aching Radiation: none Migration to: no migration Associated Symptoms: Denies belching, bloating, change in bowel habits, change in stool character, chills, coffee ground emesis, diarrhea and fever(s) Related Data: Date of Last Menstrual Period: 03/18/99 Review of Systems Const: Denies: fever(s), chills or change in weight Card: Denies: chest pain or palpitations Resp: Denies: dyspnea, productive cough or non-productive cough GI: Denies: coffee ground emesis, diarrhea, bloating, belching, change in bowel habits or change in stool character : Denies: difficulty voiding Neuro: Denies: dizziness or confusion PFSH ED PFSH: Medical History Bone spur of acromioclavicular joint Brain aneurysm Chronic post-traumatic stress disorder (PTSD) Depression Insomnia, persistent Intervertebral disc disorders with radiculopathy, lumbosacral region Obesity Right shoulder pain Strain of right shoulder Surgical History H/O: hysterectomy History of colonoscopy History of esophagogastroduodenoscopy (EGD) S/P appendectomy S/P cataract surgery S/P craniotomy S/P D&C (status post dilation and curettage) S/P tonsillectomy and adenoidectomy Status post laparoscopic sleeve gastrectomy Family History Mother Bleeding disorder Anesthesia complication Other CAD (coronary artery disease) Cancer Diabetes Hyperlipidemia Hypertension Stroke Suicide Social History Alcohol intake: never Female Reproductive History: Date of last menstrual period: 03/18/99 Physical Exam Const: COMMON NORMALS: no acute distress, patient oriented x3 and alert GENERAL APPEARANCE: cooperative ORIENTATION/CONSCIOUSNESS: Yes awake, Yes oriented to person, Yes oriented to place and Yes oriented to time Chest: COMMONS NORMALS: normal inspection of the chest Resp: COMMON NORMALS: normal respiratory effort, No use of accessory muscles and clear to auscultation bilaterally AUSCULTATION: clear to auscultation bilaterally Cardio: COMMON NORMALS: regular rate RATE: regular rate GI: COMMON NORMALS: Normal to inspection, nondistended, normoactive bowel sounds present and non-tender Neuro: COMMON NORMALS: patient oriented x3 SENSORIUM/ORIENTATION: Yes alert, Yes oriented to person, Yes oriented to place and Yes oriented to time Course Vital Signs: Vital signs: Vital Signs Temperature 97.4 F L 04/04/21 22:28 Pulse Rate 79 04/05/21 01:07 Respiratory Rate 22 H 04/05/21 01:07 Blood Pressure 97/61 04/05/21 01:07 Pulse Oximetry 95 04/05/21 01:07 MDM - Abdominal Pain MDM Narrative: Medical decision making narrative: Vitals are good. No fever. No leukocytosis. Electrolytes are normal. Her belly is diffusely tender. She will be placed on pain medication for a very short time. She was told she will not get pain medication for this condition and from the ER anymore. She has essentially benign exam. Her surgical sites look excellent. Lab Data: Labs: Lab Results 04/04/21 04/04/21 04/04/21 22:50 22:50 23:32 WBC 8.6 10^3/uL 10^3/ uL (4.0-10.0) RBC 3.61 10^6/uL L 10 ^6/uL (4.1-5.3) Hgb 10.9 g/dL L g/dL (11.5-15.3) Hct 32.9 % L % (37.0-47.0) MCV 91.1 fl fl (81-99) MCH 30.2 pg pg (28.0-34.0) MCHC 33.1 g/dL g/dL (30.0-36.0) RDW 14.5 % % (12.1-15.1) Plt Count 259 10^3/cmm 10^3 /cmm (130-400) MPV 10.2 fL fL (7.4-10.4) Neut % (Auto) 63.8 % % Lymph % (Auto) 23.3 % % Zapata % (Auto) 9.3 % % Eos % (Auto) 2.4 % % Baso % (Auto) 0.7 % % Neut # (Auto) 5.51 10^3/uL 10^3 /uL (1.8-7.7) Lymph # (Auto) 2.0 10^3/uL 10^3/ uL (0.8-4.8) Zapata # (Auto) 0.8 10^3/uL 10^3/ uL (0.2-0.9) Eos # (Auto) 0.2 10^3/uL 10^3/ uL (0.0-0.8) Baso # (Auto) 0.1 10^3/uL 10^3/ uL (0.0-0.1) Nucleated RBC % (a uto) 0 % % Nucleated RBCs # 0.0 /100WBC /100W BC Sodium 135 mmol/L L mmol /L (136-145) Potassium 3.9 mmol/L mmol/L (3.5-5.1) Chloride 99 mmol/L mmol/L (98-107) Carbon Dioxide 25 mmol/L mmol/L (22-29) Anion Gap 14.9 (5-19) BUN 17 mg/dL mg/dL (6-20) Creatinine 0.6 mg/dL mg/dL (0.5-0.9) GFR Calculation 106.3 mL/min mL/m in (90-130) Glucose 157 mg/dL H mg/dL (65-115) Calculated Osmolal ity 285 mOsm/kg mOsm/ kg (285-295) Calcium 9.4 mg/dL mg/dL (8.5-10.5) Total Bilirubin 0.4 mg/dL mg/dL (0.15-1.2) AST 17 U/L U/L (0-32) ALT 25 U/L U/L (0-33) Alkaline Phosphata se 96 IU/L IU/L (35-105) Total Protein 6.7 g/dL g/dL (6.6-8.7) Albumin 3.3 g/dL L g/dL (3.5-5.2) Globulin 3.4 g/dL g/dL (1.3-4.6) Urine Color Yellow (Yellow) Urine Appearance Sl cloudy A (CLEAR) Urine pH 9 H (5-7) Ur Specific Gravit y 1.010 (1.005-1.030) Urine Protein Neg (Negative) Urine Glucose (UA) Norm (Normal) Urine Ketones Negative (Negative) Urine Blood Neg (Negative) Urine Nitrate Negative (Negative) Urine Bilirubin Neg (Negative) Prot Sulfosalicyli c Acd Negative (Negative) Urine Urobilinogen Norm mg/dL mg/dL (Negative) Ur Leukocyte Viridiana ase Negative (Negative) Urine RBC 0-4 /hpf H /hpf (0-2) Urine WBC 0-4 /hpf H /hpf (0-5) Ur Squamous Epith Cells 10-15 /hpf H /hpf (0-5) Amorphous Sediment 3+ /hpf /hpf Urine Bacteria 1+ /hpf H /hpf (NONE) Discharge Plan Discharge Patient Disposition: Home Clinical Impression: Abdominal pain Qualifiers: Abdominal location: generalized Qualified Code(s): R10.84 - Generalized abdominal pain Condition: Stable Prescriptions: New Percocet 7.5-325 mg tablet 1 tab PO Q6H PRN (Reason: pain) Qty: 10 RF: 0 No Action amoxicillin-pot clavulanate [Augmentin] 875-125 mg tablet 1 tab PO BID 5 Days Qty: 10 RF: 0 ondansetron HCl [Zofran] 4 mg tablet 4 mg PO Q8H PRN (Reason: nausea and vomiting) 20 Days Qty: 60 RF: 2 multivitamin Tablet 1 tab PO DAILY RF: 0 cyclobenzaprine 10 mg tablet 10 mg PO TID PRN (Reason: Muscle Spasm) RF: 0 Tylenol Extra Strength 500 mg Tablet 500 mg PO Q4H PRN (Reason: Pain) RF: 0 Calcium 600 600 mg calcium (1,500 mg) Tablet 600 mg PO DAILY RF: 0 Hair,Skin and Nails Tablet 1 tab PO DAILY RF: 0 Vitamin B-12 1 tab PO DAILY RF: 0 Vitamin D3 1 cap PO DAILY RF: 0 Carafate 1 gram tablet 1 g PO TID RF: 0 Protonix 40 mg tablet,delayed release (DR/EC) 40 mg PO BEDTIME RF: 0 levofloxacin 500 mg tablet 500 mg PO DAILY RF: 0 promethazine 25 mg tablet 25 mg PO Q6H PRN (Reason: nausea and vomiting) Qty: 14 RF: 0 Discharge Orders: Discharge ED (Routine); Ordered 04/05/21 Ordered By: Torres Caban Referrals: NICOLLE Rosario, [facility] [Primary Care Provider] - Patient Instructions: Abdominal Pain (ED), Opioid Safety Activity Restrictions/Additional Instructions: Return to the emergency department for fever greater than 100, vomiting liquids or medications, other concerning symptoms. It is important that you take stool softeners with opioid pain medication to prevent bowel problems. Contact your doctor on Tuesday and let them know you were here. Because of our policy, we will not be able to write for pain medication for this condition again. Coding Level of Care Code ED Chemical Handler for Yahir Eng
== END 2021-04-05 01:16 | disposition home or self-care (01) ==
PROVIDERS: Emergency Medicine; Emergency Provider Emergency Medicine; PCP Nurse Practitioner Family
DX: R10.84 Generalized abdominal pain (principal)
CPT/HCPCS: 80053; 81001; 85025; 96374; 96375; 99283; J1170; J2405

== ENCOUNTER 2021-04-16 11:24 | Outpatient (CLI) | payer MEDICAID, SELFPAY ==
[2021-04-16 12:00] LABS: Basophils % 0.5 %; Eosinophils # 0.1 10^3/uL (0.0-0.8); Eosinophils % 2.1 %; Hematocrit 35.9 % (37.0-47.0); Hemoglobin 11.6 g/dL (11.5-15.3); Lymphocytes # 2.2 10^3/uL (0.8-4.8); Lymphocytes % 38.5 %; Mean Corpuscular HGB Conc 32.3 g/dL (30.0-36.0); Mean Corpuscular Hemoglobin 29.5 pg (28.0-34.0); Mean Corpuscular Volume 91.3 fl (81-99); Monocytes # 0.4 10^3/uL (0.2-0.9); Monocytes % 7.1 %; Neutrophils # 2.96 10^3/uL (1.8-7.7); Neutrophils % 51.5 %; Nucleated Red Blood Cells % 0 %; Platelet Count 474 10^3/cmm (130-400); Red Blood Count 3.93 10^6/uL (4.1-5.3); Red Cell Distribution Width 14.3 % (12.1-15.1); White Blood Count 5.8 10^3/uL (4.0-10.0)
[2021-04-16 12:30] LABS: Calcium 9.6 mg/dL (8.5-10.5)
[2021-04-16 12:35] LABS: Parathyroid Hormone 35.6 pg/mL (15-65)
[2021-04-16 12:45] LABS: Folate Level 6.4 ng/mL (4.8-37.3)
[2021-04-16 12:49] LABS: Alanine Aminotransferase < 5 U/L (0-33); Albumin Level 3.8 g/dL (3.5-5.2); Alkaline Phosphatase 86 IU/L (35-105); Anion Gap 13.9 (5-19); Aspartate Amino Transferase 13 U/L (0-32); Blood Urea Nitrogen 15 mg/dL (6-20); Calcium 9.5 mg/dL (8.5-10.5); Carbon Dioxide 24 mmol/L (22-29); Chloride 105 mmol/L (98-107); Chol HDL Ratio 4.27 mg/dL (0.0-4.40); Cholesterol 188 mg/dL (0-200); Ferritin 329 ng/mL (15-150); Globulin 3.7 g/dL (1.3-4.6); Glomerular Filtration Rate 106.3 mL/min (90-130); Glucose 95 mg/dL (65-115); HDL Cholesterol 44 mg/dL (60-100); Iron 58 ug/dL (37-145); LDL Cholesterol Calculated 120 mg/dL (50-129); LDL HDL Ratio 2.73 RATIO (0.00-3.22); Magnesium 1.8 mg/dL (1.7-2.3); Osmolality Calculated 289 mOsm/kg (285-295); Percent Saturation 30.6 % (20-50); Potassium 3.9 mmol/L (3.5-5.1); Sodium 139 mmol/L (136-145); Thyroid Stimulating Hormone 2.63 uIU/mL (0.27-4.20); Total Bilirubin 0.3 mg/dL (0.15-1.2); Total Iron Binding Capacity 189 mcg/dl; Total Protein 7.5 g/dL (6.6-8.7); Triglycerides 119 mg/dL (0-150); Unsaturated Iron Binding 131 ug/dL (112-347); Vitamin B12 571 pg/mL (232-1245)
[2021-04-19 15:33] LABS: Vit D 1,25 (Oh)2, Total 26 pg/mL (18-72); Vit D2 1,25 (Oh)2 <8 pg/mL; Vit D3 1,25 (Oh)2 26 pg/mL
[2021-04-22 00:22] LABS: Vitamin B1(Thiamin) Plas/Ser 17 nmol/L (8-30)
[2021-04-22 16:01] LABS: Zinc Level, Serum or Plasma 95 mcg/dL (60-130)
== END 2021-04-16 11:25 | disposition home or self-care (01) ==
LOC: LAB 11:30
PROVIDERS: PCP Nurse Practitioner Family; Visit Provider Surgery
DX: Z98.84 Bariatric surgery status (principal)
CPT/HCPCS: 80053; 80061; 82310; 82607; 82652; 82728; 82746; 83540; 83550; 83735; 83970; 84425; 84443; 84630; 85025

== ENCOUNTER → 2021-04-17 08:40 | Outpatient (BNVA) | payer MEDICAID, SELFPAY | PROVIDERS: PCP Nurse Practitioner Family; Visit Provider Counselor Mental Health | DX: F43.11 Post-traumatic stress disorder, acute (principal); F41.9 Anxiety disorder, unspecified; F33.1 Major depressive disorder, recurrent, moderate; R68.82 Decreased libido; F43.12 Post-traumatic stress disorder, chronic | CPT/HCPCS: 90834 ==

== ENCOUNTER → 2021-05-07 09:32 | Outpatient (BNVA) | payer MEDICAID, SELFPAY | PROVIDERS: PCP Nurse Practitioner Family; Visit Provider Nurse Practitioner Psychiatric/Mental Health | DX: F41.9 Anxiety disorder, unspecified (principal); F43.12 Post-traumatic stress disorder, chronic; Z98.84 Bariatric surgery status | CPT/HCPCS: 99214 ==

== ENCOUNTER → 2021-05-08 09:45 | Outpatient (BNVA) | payer MEDICAID, SELFPAY | PROVIDERS: PCP Nurse Practitioner Family; Visit Provider Counselor Mental Health | DX: F43.11 Post-traumatic stress disorder, acute (principal); F41.9 Anxiety disorder, unspecified; F33.1 Major depressive disorder, recurrent, moderate; R68.82 Decreased libido; F43.12 Post-traumatic stress disorder, chronic | CPT/HCPCS: 90834 ==

== ENCOUNTER → 2021-05-14 09:48 | Outpatient (BNVA) | payer MEDICAID, SELFPAY | PROVIDERS: PCP Nurse Practitioner Family; Visit Provider Counselor Mental Health | DX: F43.11 Post-traumatic stress disorder, acute (principal); F41.9 Anxiety disorder, unspecified; F33.1 Major depressive disorder, recurrent, moderate; R68.82 Decreased libido; F41.1 Generalized anxiety disorder | CPT/HCPCS: 90834 ==

== ENCOUNTER → 2021-05-21 10:06 | Outpatient (BNVA) | payer MEDICAID, SELFPAY | PROVIDERS: PCP Nurse Practitioner Family; Visit Provider Counselor Mental Health | DX: F43.11 Post-traumatic stress disorder, acute (principal); F41.9 Anxiety disorder, unspecified; F33.1 Major depressive disorder, recurrent, moderate; R68.82 Decreased libido | CPT/HCPCS: 90834 ==

== ENCOUNTER → 2021-06-01 08:00 | Outpatient (BNVA) | payer MEDICAID, SELFPAY | PROVIDERS: PCP Nurse Practitioner Family; Visit Provider Counselor Mental Health | DX: F43.11 Post-traumatic stress disorder, acute (principal); F41.9 Anxiety disorder, unspecified; F33.1 Major depressive disorder, recurrent, moderate; R68.82 Decreased libido | CPT/HCPCS: 90834 ==

== ENCOUNTER 2021-06-03 15:49 | Emergency (ER) | payer MEDICAID, SELFPAY ==
[2021-06-03 16:09] VITALS: BP 130/82; PULSE 102; RESP 18; TEMP 36.4; O2SAT 97; BMI 26.2
--- NOTE | 2021-06-03 16:15 | ECG_ITS ---
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 Measurements Intervals [place] Rate: 107 P: 59 MT: 166 QRS: -8 QRSD: 89 T: 29 QT: 346 QTc: 462 Interpretive Statements SINUS TACHYCARDIA ABNORMAL RHYTHM ECG Compared to ECG 03/23/2021 11:40:10 Sinus rhythm no longer present Myocardial infarct finding no longer present Electronically Signed On 06-03-2021 23:44:25 LABORATORY TECHNOLOGIST by Laureano Martínez M.D. [id number]
[2021-06-03 16:46] LABS: Basophils % 0.3 %; Eosinophils # 0.1 10^3/uL (0.0-0.8); Eosinophils % 0.8 %; Hematocrit 42.1 % (37.0-47.0); Hemoglobin 13.9 g/dL (11.5-15.3); Lymphocytes # 2.6 10^3/uL (0.8-4.8); Lymphocytes % 36.2 %; Mean Corpuscular Volume 90.9 fl (81-99); Mean Platelet Volume 9.8 fL (7.4-10.4); Monocytes # 0.5 10^3/uL (0.2-0.9); Monocytes % 7.3 %; Neutrophils # 3.91 10^3/uL (1.8-7.7); Neutrophils % 55.1 %; Nucleated Red Blood Cells % 0 %; Platelet Count 302 10^3/cmm (130-400); Red Blood Count 4.63 10^6/uL (4.1-5.3); Red Cell Distribution Width 14.1 % (12.1-15.1); White Blood Count 7.1 10^3/uL (4.0-10.0)
[2021-06-03 17:20] LABS: Troponin T (5th) Once 6 ng/L (0-10)
[2021-06-03 17:23] LABS: Alanine Aminotransferase 17 U/L (0-33); Albumin Level 4.7 g/dL (3.5-5.2); Alkaline Phosphatase 86 IU/L (35-105); Anion Gap 16.6 (5-19); Aspartate Amino Transferase 13 U/L (0-32); Blood Urea Nitrogen 18 mg/dL (6-20); Calcium 9.4 mg/dL (8.5-10.5); Carbon Dioxide 22 mmol/L (22-29); Chloride 105 mmol/L (98-107); Globulin 2.5 g/dL (1.3-4.6); Glomerular Filtration Rate 88.9 mL/min (90-130); Glucose 112 mg/dL (65-115); Osmolality Calculated 293 mOsm/kg (285-295); Potassium 3.6 mmol/L (3.5-5.1); Sodium 140 mmol/L (136-145); Total Bilirubin 0.2 mg/dL (0.15-1.2); Total Protein 7.2 g/dL (6.6-8.7)
== END 2021-06-03 17:09 | disposition left against medical advice (07) ==
LOC: ER 16:14
PROVIDERS: Emergency Medicine; Emergency Provider Family Medicine; PCP Nurse Practitioner Family
DX: Z53.21 Procedure and treatment not carried out due to patient leaving prior to being seen by health care provider (principal)
CPT/HCPCS: 80053; 84484; 85025; 93005

== ENCOUNTER → 2021-06-08 08:31 | Outpatient (BNVA) | payer MEDICAID, SELFPAY | PROVIDERS: PCP Nurse Practitioner Family; Visit Provider Counselor Mental Health | DX: F43.11 Post-traumatic stress disorder, acute (principal); F41.9 Anxiety disorder, unspecified; F33.1 Major depressive disorder, recurrent, moderate; R68.82 Decreased libido | CPT/HCPCS: 90834 ==

== ENCOUNTER → 2021-06-18 09:25 | Outpatient (BNVA) | payer MEDICAID, SELFPAY | PROVIDERS: PCP Nurse Practitioner Family; Visit Provider Counselor Mental Health | DX: F43.11 Post-traumatic stress disorder, acute (principal); F41.9 Anxiety disorder, unspecified; F33.1 Major depressive disorder, recurrent, moderate; R68.82 Decreased libido | CPT/HCPCS: 90834 ==

== ENCOUNTER → 2021-06-22 14:20 | Outpatient (BNVA) | payer MEDICAID, SELFPAY | PROVIDERS: PCP Nurse Practitioner Family; Visit Provider Nurse Practitioner Psychiatric/Mental Health | DX: F43.11 Post-traumatic stress disorder, acute (principal); F41.9 Anxiety disorder, unspecified; F33.1 Major depressive disorder, recurrent, moderate; Z63.0 Problems in relationship with spouse or partner | CPT/HCPCS: 99214 ==

== ENCOUNTER 2021-10-05 09:35 | Outpatient (CLI) | payer MEDICAID, SELFPAY ==
--- NOTE | 2021-10-05 09:44 | MM_ITS ---
WS: [id number] BILATERAL 3D TOMOSYNTHESIS DIGITAL SCREENING MAMMOGRAPHY WITH CAD CLINICAL INFORMATION: SCREENING HISTORY: Screening mammogram. No current complaints. COMPARISON: TECHNIQUE: Bilateral CC and MLO views. FINDINGS: Scattered fibroglandular densities bilaterally. Incidental punctate calcification LEFT breast. No jessica picious focal mass, asymmetry, calcifications, or architectural distortion. No evidence of malignancy . MM/[place] [id number] IMPRESSION: BI-RADS: 2-Benign FOLLOW UP: 1 Year Follow-up Recommend return to annual screening mammography.
== END 2021-10-05 09:36 | disposition home or self-care (01) ==
LOC: RAD 09:36
PROVIDERS: PCP Family Medicine; Visit Provider Family Medicine
DX: Z12.31 Encounter for screening mammogram for malignant neoplasm of breast (principal)
CPT/HCPCS: 77063; 77067

== ENCOUNTER → 2021-10-07 08:23 | Outpatient (BNVA) | payer MEDICAID, SELFPAY | PROVIDERS: PCP Family Medicine; Visit Provider Surgery | DX: Z98.84 Bariatric surgery status (principal) | CPT/HCPCS: 99213 ==

== ENCOUNTER 2023-02-04 08:55 | Emergency (ER) | payer MEDICAID, SELFPAY ==
[2023-02-04 09:00] VITALS: BP 123/68; PULSE 85; RESP 18; TEMP 36.8; O2SAT 97; BMI 25.8
--- NOTE | 2023-02-04 09:34 | ED_ITS ---
HPI - Eye Problem General: Chief complaint: Eye Problems Stated complaint: stung in left eye Time Seen by Provider: 02/04/23 09:07 History of Present Illness: Patient is in today stating that she was stung by a bumblebee under her left eye just prior to arrival. She reports that she has never had an allergy to a bee sting she came in today because it hurts. She denies any changes in her vision. She reports that her biggest complaint is pain at the injury site. Associated symptoms: Denies fever(s) Review of Systems Const: Denies: fever(s) or chills Eyes: Reports: other (Painful bee sting just under the left eye); Denies: change in vision, blurry vision or blind spots Card: Denies: chest pain or palpitations Resp: Denies: dyspnea, productive cough, non-productive cough, wheezing or stridor [facility] ED PFSH: Medical History Bone spur of acromioclavicular joint Brain aneurysm Cervical cancer Changing skin lesion Chronic post-traumatic stress disorder (PTSD) Depression Gastric anastomotic stricture Insomnia, persistent Intervertebral disc disorders with radiculopathy, lumbosacral region Obesity Ovarian cancer Partner relational problem Right shoulder pain Strain of right shoulder Surgical History H/O: hysterectomy History of colonoscopy History of esophagogastroduodenoscopy (EGD) S/P appendectomy S/P cataract surgery S/P craniotomy S/P D&C (status post dilation and curettage) S/P tonsillectomy and adenoidectomy Status post laparoscopic sleeve gastrectomy Family History Mother Bleeding disorder Anesthesia complication Other CAD (coronary artery disease) Cancer Diabetes Hyperlipidemia Hypertension Stroke Suicide Social History Smoking and tobacco status: never smoked Second hand smoke exposure: Yes Alcohol intake: never Substance/Drug Use: never Physical Exam Const: COMMON NORMALS: no acute distress, patient oriented x3 and alert Eye: OTHER: Just under left eye there is a punctate scabbed lesion with minimal surrounding erythema. This does not extend to the eye itself. EOMs within normal limits all tucker bilateral eyes. Conjunctive a clear. Swelling is only localized to the punctate lesion Neck/C-Spine: COMMON NORMALS: no JVD Resp: COMMON NORMALS: normal respiratory effort, No use of accessory muscles and clear to auscultation bilaterally AUSCULTATION: clear to auscultation bilaterally Cardio: COMMON NORMALS: no JVD, regular rate, regular rhythm, S1 normal heart sound present and S2 normal heart sound present RATE: regular rate RHYTHM: regular rhythm HEART SOUNDS: S1 normal heart sound present and S2 normal heart sound present Neuro: COMMON NORMALS: patient oriented x3 SENSORIUM/ORIENTATION: Yes alert Course Vital Signs: Vital signs: Vital Signs Temperature 98.2 F 02/04/23 09:00 Pulse Rate 85 02/04/23 09:00 Respiratory Rate 18 02/04/23 09:00 Blood Pressure 123/68 02/04/23 09:00 Pulse Oximetry 97 02/04/23 09:00 Oxygen Delivery Me thod Room Air 02/04/23 09:00 MDM - Eye Problem Medical Decision Making Bee sting Patient does not appear to be having any type of allergic reaction to the sting. Her biggest complaint is pain. We discussed typical course of healing. We discussed conservative measures at home including cool compresses. She can take Benadryl if needed for any swelling or itching that occurs locally or otherwise. Patient is requesting something for pain. Treated with Toradol x1 dose. Patient reports that she has tolerated this well in the past and actually has to use it for migraines routinely. Advised her of possible benefits and side effects of medication provided today. Advised her to follow-up with her primary care provider provider as needed. Return to the ER for any new or worsening symptoms including, but not limited to, signs and symptoms of allergic reaction swelling, difficulty breathing, signs and symptoms of infection including increased redness, pain, drainage from the site. Patient verbalized understanding of all instruction. Discharged home in stable condition. Discharge Plan Discharge Patient Disposition: Home Clinical Impression: Sting, bee Condition: Stable Prescriptions: No Action rizatriptan [Maxalt-ORDER ENTRY SPECIALIST] 10 mg tablet,disintegrating See Rx Instructions PO .COMPLEX Qty: 14 0RF Rx Instructions: take 1 tab at onset, may repeat another in 2 hours max 2tabs in 24 hours Multivitamin Women 50 Plus 8 mg iron-400 mcg-300 mcg tablet 1 tab PO DAILY cyclobenzaprine 10 mg tablet 10 mg PO TID PRN (Reason: muscle spasm) Qty: 30 2RF sumatriptan succinate 100 mg tablet See Rx Instructions PO .COMPLEX Qty: 14 2RF Rx Instructions: Take 1 on onset of headache, take 1 in 2 hours if headache persists. max2 in 24 hours. ondansetron 8 mg tablet,disintegrating 8 mg PO Q8H PRN (Reason: nausea and vomiting) Qty: 20 2RF gabapentin 400 mg capsule 400 mg PO TID hydrocodone-acetaminophen 7.5-300 mg tablet 1 tab PO Q8H PRN asenapine maleate 5 mg tablet, sublingual 5 mg sublingual Q12H Nurtec ODT 75 mg tablet,disintegrating PO DAILY Qulipta 30 mg tablet 30 mg PO DAILY doxepin 25 mg capsule 25 mg PO .qhs Qty: 30 2RF atenolol 50 mg tablet See Rx Instructions .ROUTE .COMPLEX Qty: 30 1RF Dose Instruction: TAKE ONE TABLET BY MOUTH EVERY DAY Rx Instructions: TAKE ONE TABLET BY MOUTH EVERY DAY multivitamin Tablet 1 tab PO DAILY Tylenol Extra Strength 500 mg Tablet 500 mg PO Q4H PRN (Reason: Pain) Calcium 600 600 mg calcium (1,500 mg) Tablet 600 mg PO DAILY Hair,Skin and Nails Tablet 1 tab PO DAILY Vitamin B-12 1 tab PO DAILY Vitamin D3 1 cap PO DAILY Discharge Orders: Discharge ED (Routine); Ordered 02/04/23 Ordered By: Lana Berkowitz Referrals: Nguyen Laurent MD [Primary Care Provider] - Discharge Diet: Usual diet Discharge Activity: Resume usual activity Patient Instructions: Insect Bite or Sting (ED) Activity Restrictions/Additional Instructions: Keep the area clean and dry. You may apply triple antibiotic ointment to the area as needed. You may use cool compresses to the area. Monitor closely for any signs of developing infection such as oozing, increased redness, increased swelling. You may use Benadryl at home as needed for any itching or swelling. Follow-up with your primary care provider as needed. Return to the ER for any new or worsening symptoms Coding Level of Care Code ED Sample Distributor for Yahir Eng
[2023-02-04] MEDS: ketorolac 60 mg/2 mL INJ IM (09:35)
--- NOTE | 2023-02-04 09:38 | PC.NURSE ---
PT REQUESTED TORDAL INJECTION BE IN RIGHT DELTOID.
[2023-02-04 09:43] VITALS: BP 132/83; PULSE 91; RESP 18; O2SAT 91
== END 2023-02-04 09:45 | disposition home or self-care (01) ==
PROVIDERS: Emergency Provider Nurse Practitioner Family; PCP Family Medicine
DX: T63.441A Toxic effect of venom of bees, accidental (unintentional), initial encounter (principal); Z77.22 Contact with and (suspected) exposure to environmental tobacco smoke (acute) (chronic); Z85.41 Personal history of malignant neoplasm of cervix uteri; Z85.43 Personal history of malignant neoplasm of ovary
CPT/HCPCS: 96372; 99284; J1885

== ENCOUNTER → 2023-04-22 11:42 | Outpatient (BNVA) | payer MEDICAID, SELFPAY | PROVIDERS: PCP Family Medicine; Visit Provider Family Medicine | DX: R35.0 Frequency of micturition (principal); N39.0 Urinary tract infection, site not specified | CPT/HCPCS: 81003; 87077; 87086; 87184 ==

== ENCOUNTER → 2023-05-05 11:02 | Outpatient (BNVA) | payer MEDICAID, SELFPAY | PROVIDERS: PCP Family Medicine; Visit Provider Family Medicine | DX: N39.0 Urinary tract infection, site not specified (principal) | CPT/HCPCS: 81003; 87086 ==

== ENCOUNTER → 2023-09-08 10:13 | Outpatient (BNVA) | payer MEDICAID, SELFPAY | PROVIDERS: PCP Family Medicine; Visit Provider Family Medicine | DX: M17.11 Unilateral primary osteoarthritis, right knee (principal); M25.561 Pain in right knee | CPT/HCPCS: 73562 ==

== ENCOUNTER → 2023-10-24 10:46 | Outpatient (BNVA) | payer MEDICAID, SELFPAY | PROVIDERS: PCP Family Medicine; Visit Provider Specialist | DX: M17.0 Bilateral primary osteoarthritis of knee | CPT/HCPCS: 20610; 73560; 73565; 99204 ==